=== PATIENT | male | born 1955 | race Caucasian/White ===

== ENCOUNTER 2022-12-27 13:37 | Inpatient (IN) ==
[2022-12-27] MEDS ORDERED: SODIUM CHLORIDE 0.9% 500 ML IV ONE (14:30)
[2022-12-27] MEDS ORDERED: MoRPHine SULFATE 2 MG/ML CARP IV STA (14:30)
--- NOTE | 2022-12-27 14:38 | Emergency Department Note ---
History of Present Illness General Chief complaint: Foot Injury/Pain Stated complaint: INFECTION IN FOOT Time Seen by Provider: 12/27/22 14:09 History of Present Illness Maximum Pain Intensity: 7 67-year-old male with past medical history significant for diabetes, PAD, chronic tobacco user who presents to the emergency department for evaluation of right foot wound. Patient states he developed a wound to the right lateral foot approximately 2 weeks ago from his shoes rubbing. He was admitted to [facility] on 2 separate occasions (12/09-12/13 and 12/21-12/25) for cellulitis and t reated with IV antibiotics. He developed 2 new wounds to the top and medial aspect of the right foot with some drainage today. 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 Dwyer, this morning and had cultures taken. He was then referred to the emergency department for likely surgical debridement of his wounds. Patient is currently taking clindamycin for step-down therapy for cellulitis. He denies fever/chills, nausea/vomiting. He has pain at the wound sites. Denies numbness/tingling, coolness of extremity. Reports a history of right lower extremity bypass as well as status post transmetatarsal amputation on the right foot. He has taken tramadol and Tylenol prior to arrival for pain without much relief. Home Medications Medication Instructions Recorded Confirmed Type acetaminophen 500 mg tablet 500 mg PO DAILY PRN Pain 12/27/22 12/27/22 History ascorbic acid (vitamin C) 500 mg 500 mg PO DAILY 12/27/22 12/27/22 History tablet atorvastatin 20 mg tablet 20 mg PO DAILY 12/27/22 12/27/22 History cholecalciferol (vitamin D3) 50 50 mcg PO DAILY 12/27/22 12/27/22 History mcg (2,000 unit) capsule (Vitamin D3) cilostazol 100 mg tablet 100 mg PO BID 12/27/22 12/27/22 History clindamycin HCl 300 mg capsule 300 mg PO Q6H 12/27/22 12/27/22 History clopidogrel 75 mg tablet 75 mg PO DAILY 12/27/22 12/27/22 History epinephrine 0.3 mg/0.3 mL 0.3 mg IM DIRECTED 12/27/22 12/27/22 History injection, auto-injector finerenone 10 mg tablet (Kerendia) 10 mg PO DAILY 12/27/22 12/27/22 History gabapentin 300 mg capsule 600 mg PO QID 12/27/22 12/27/22 History insulin aspart U-100 100 unit/mL 0 unit subcut DIRECTED 12/27/22 12/27/22 History (3 mL) subcutaneous pen (Novolog FlexPen U-100 Insulin aspart) insulin glargine 100 unit/mL (3 0 unit subcut QPM 12/27/22 12/27/22 History mL) subcutaneous pen (Lantus Solostar U-100 Insulin) lisinopril 40 mg tablet 40 mg PO HS 12/27/22 12/27/22 History multivitamin 1 tab PO DAILY 12/27/22 12/27/22 History pioglitazone 45 mg tablet 45 mg PO DAILY 12/27/22 12/27/22 History tramadol 50 mg tablet 50 mg PO BID PRN Pain 12/27/22 12/27/22 History vit C 250 mg-vit E 90 mg-zinc 40 1 cap PO DAILY 12/27/22 12/27/22 History mg-copper 1 th-[id number] capsule (PreserVision AREDS-2) Allergies Allergy/AdvReac Type Severity Reaction Status Date / Time bee venom protein (honey bee) Allergy Severe Anaphylaxis Unverified 12/27/22 16 :09 Past Med/Surg History Medical History (Updated 12/27/22 @ 21:48 by Gaston Novak DPM, MS) PVD (peripheral vascular disease) T2DM (type 2 diabetes mellitus) TIA (transient ischemic attack) Social History Smoking Status: Current every day smoker Tobacco Type: Cigarettes Second Hand Exposure: Yes; Do You Dip or Chew Tobacco: No; Tobacco Cessation Education Requested by Patient: No Hx Substance Use: No Preferred Language: Monegasque Communication Ability: Effective Manufacturing Supervisor Required: No Beliefs That Will Affect Care: None Current Living Situation: Alone Other Information That Helps Us Care for You: No Feels Safe at Home: Yes Safety Concerns: Feels Safe At This Time Assistive Devices: Cane, Scooter/Electric Scooter and Walker Physical Exam Vital Signs Vital Signs - 24 hr 12/27/22 13:41 12/27/22 15:02 12/27/22 15:00 Temperature 36.8 C Temperature Source Temporal Artery Scan Pulse Rate 84 75 Pulse Rate from SpO2 Sensor Respiratory Rate 20 Respiratory Effort / Characteristics Non-Labored Respiratory Depth Normal Blood Pressure 156/70 H 146/70 H Blood Pressure Mean 98 97 Pulse Oximetry 98 Oxygen Delivery Method Room Air Sepsis Recent Fever Within 48 Hours No Sepsis New/Unexplained Change in Mental Status N/A Sepsis Action Taken by Nursing No Action Required 12/27/22 15:00 12/27/22 15:05 12/27/22 15:05 Temperature Temperature Source Pulse Rate 73 72 Pulse Rate from SpO2 Sensor 75 72 Respiratory Rate 14 18 Respiratory Effort / Characteristics Respiratory Depth Blood Pressure 154/73 H Blood Pressure Mean 104 Pulse Oximetry 97 94 Oxygen Delivery Method Sepsis Recent Fever Within 48 Hours Sepsis New/Unexplained Change in Mental Status Sepsis Action Taken by Nursing 12/27/22 15:10 12/27/22 15:10 12/27/22 15:15 Temperature Temperature Source Pulse Rate 73 74 Pulse Rate from SpO2 Sensor 75 73 Respiratory Rate 22 17 Respiratory Effort / Characteristics Respiratory Depth Blood Pressure 159/75 H Blood Pressure Mean 118 Pulse Oximetry 96 98 Oxygen Delivery Method Sepsis Recent Fever Within 48 Hours Sepsis New/Unexplained Change in Mental Status Sepsis Action Taken by Nursing 12/27/22 15:15 12/27/22 15:20 12/27/22 15:20 Temperature Temperature Source Pulse Rate 69 Pulse Rate from SpO2 Sensor 72 Respiratory Rate 17 Respiratory Effort / Characteristics Respiratory Depth Blood Pressure 169/80 H 164/76 H Blood Pressure Mean 124 108 Pulse Oximetry 97 Oxygen Delivery Method Sepsis Recent Fever Within 48 Hours Sepsis New/Unexplained Change in Mental Status Sepsis Action Taken by Nursing 12/27/22 15:25 12/27/22 15:25 12/27/22 15:30 Temperature Temperature Source Pulse Rate 77 Pulse Rate from SpO2 Sensor 77 Respiratory Rate 14 Respiratory Effort / Characteristics Respiratory Depth Blood Pressure 146/78 H 158/72 H Blood Pressure Mean 101 107 Pulse Oximetry 98 Oxygen Delivery Method Sepsis Recent Fever Within 48 Hours Sepsis New/Unexplained Change in Mental Status Sepsis Action Taken by Nursing 12/27/22 15:30 12/27/22 15:36 12/27/22 15:36 Temperature Temperature Source Pulse Rate 72 78 Pulse Rate from SpO2 Sensor 75 76 Respiratory Rate 19 21 Respiratory Effort / Characteristics Respiratory Depth Blood Pressure 158/64 H Blood Pressure Mean 104 Pulse Oximetry 98 94 Oxygen Delivery Method Sepsis Recent Fever Within 48 Hours Sepsis New/Unexplained Change in Mental Status Sepsis Action Taken by Nursing 12/27/22 15:40 12/27/22 15:40 12/27/22 15:45 Temperature Temperature Source Pulse Rate 73 72 Pulse Rate from SpO2 Sensor 73 69 Respiratory Rate 14 24 Respiratory Effort / Characteristics Respiratory Depth Blood Pressure 161/80 H Blood Pressure Mean 108 Pulse Oximetry 97 98 Oxygen Delivery Method Sepsis Recent Fever Within 48 Hours Sepsis New/Unexplained Change in Mental Status Sepsis Action Taken by Nursing 12/27/22 15:45 12/27/22 15:50 12/27/22 15:50 Temperature Temperature Source Pulse Rate 73 Pulse Rate from SpO2 Sensor 77 Respiratory Rate 20 Respiratory Effort / Characteristics Respiratory Depth Blood Pressure 152/95 H 171/84 H Blood Pressure Mean 120 113 Pulse Oximetry 93 Oxygen Delivery Method Sepsis Recent Fever Within 48 Hours Sepsis New/Unexplained Change in Mental Status Sepsis Action Taken by Nursing 12/27/22 15:55 12/27/22 15:55 12/27/22 16:00 Temperature Temperature Source Pulse Rate 74 Pulse Rate from SpO2 Sensor 77 Respiratory Rate 17 Respiratory Effort / Characteristics Respiratory Depth Blood Pressure 161/78 H 168/97 H Blood Pressure Mean 128 136 Pulse Oximetry 95 Oxygen Delivery Method Sepsis Recent Fever Within 48 Hours Sepsis New/Unexplained Change in Mental Status Sepsis Action Taken by Nursing 12/27/22 16:00 12/27/22 16:05 12/27/22 16:05 Temperature Temperature Source Pulse Rate 72 91 H Pulse Rate from SpO2 Sensor 74 97 H Respiratory Rate 25 H 23 Respiratory Effort / Characteristics Respiratory Depth Blood Pressure 203/92 H Blood Pressure Mean 138 Pulse Oximetry 95 95 Oxygen Delivery Method Sepsis Recent Fever Within 48 Hours Sepsis New/Unexplained Change in Mental Status Sepsis Action Taken by Nursing 12/27/22 16:10 12/27/22 16:11 12/27/22 16:11 Temperature Temperature Source Pulse Rate 74 75 Pulse Rate from SpO2 Sensor 68 77 Respiratory Rate 26 H 21 Respiratory Effort / Characteristics Respiratory Depth Blood Pressure 157/57 H Blood Pressure Mean 96 Pulse Oximetry 94 95 Oxygen Delivery Method Sepsis Recent Fever Within 48 Hours Sepsis New/Unexplained Change in Mental Status Sepsis Action Taken by Nursing Constitutional: alert and oriented x3. no acute distress. nontoxic HEENT: normocephalic, atraumatic. normal conjunctiva.PERRLA. EOM's grossly intact. Neck: neck is supple, nontender. Respiratory: lungs are clear to auscultation without wheezes, rhonchi, or rales bilaterally. equal chest rise. normal respiratory effort, no accessory muscle use. Cardiovascular: normal heart sounds without murmur. regular rate and rhythm. GI: abdomen is soft, nontender. No palpable masses. No rebound tenderness or guarding. No CVA tenderness MSK: right lateral foot wound without erythema, edema, warmth or drainage, appears to be healing well. Right dorsal and medial foot with quarter size ulcers with surrounding erythema, swelling and warmth. Some fluctuance. No obvious abscess. No crepitus. Peripheral vascular: extremities warm and well perfused with palpable pulses. Psych:appropriate mood and affect. Course Administered Medications Cilostazol (Cilostazol 100 Mg Tab) 100 mg PO BID ZINA Stop: 01/26/23 20:59 Last Admin: 12/27/22 21:04 Dose: 100 mg Documented By: ELMIRA Gabapentin (Gabapentin 600 Mg Tab) 600 mg PO QID ZINA Stop: 01/26/23 20:59 Last Admin: 12/27/22 21:04 Dose: 600 mg Documented By: ELMIRA Heparin Sodium (Porcine) (Heparin Sod 5,000 Unit/0.5 Ml Vial) 5,000 units SQ Q8 ZINA Stop: 01/26/23 21:59 Last Admin: 12/27/22 21:02 Dose: 5,000 units Documented By: ELMIRA Lactated Ringer's (Lr) 1,000 mls @ 100 mls/hr IV .Q10H ZINA Stop: 01/26/23 17:44 Last Admin: 12/27/22 18:40 Dose: 100 mls/hr Documented By: VANITA Insulin Aspart (Insulin Aspart Per Unit Charge) 0 units SC ACHS ZINA Stop: 01/26/23 20:59 Last Admin: 12/27/22 20:50 Dose: 3 units Documented By: ELMIRA Co-signed By: DOMINICK Insulin Glargine (Lantus Per Unit Charge) 10 units SQ BID ZINA Stop: 01/26/23 20:59 Last Admin: 12/27/22 20:51 Dose: 10 units Documented By: ELMIRA Co-signed By: DOMINICK Tramadol HCl (Tramadol Hcl 50 Mg Tablet) 50 mg PO BID PRN PRN Reason: Pain Stop: 01/26/23 19:57 Last Admin: 12/27/22 21:03 Dose: 50 mg Documented By: ELMIRA Discontinued Medications Gadobutrol (Gadobutrol 65ml Vial) 9.5 ml IV ONCE ONE Stop: 12/27/22 18:10 Last Admin: 12/27/22 18:09 Dose: 9.5 ml Documented By: ANA(2) Sodium Chloride (Nss) 500 mls @ 999 mls/hr IV .Q31M ONE Stop: 12/27/22 15:00 Last Infusion: 12/27/22 15:55 Dose: 0 mls/hr Documented By: Admin: 12/27/22 14:51 Dose: 999 mls/hr Documented By: VANITA Piperacillin Sod/Tazobactam Sod (Zosyn) 4.5 gm in 120 mls @ 240 mls/hr IV NOW ONE Stop: 12/27/22 15:52 Last Infusion: 12/27/22 16:56 Dose: 0 mls/hr Documented By: Admin: 12/27/22 16:00 Dose: 240 mls/hr Documented By: AMY Daptomycin 350 mg/ Syringe 7 mls @ 3.5 mls/min IV NOW ONE; Protocol Stop: 12/27/22 19:46 Last Admin: 12/27/22 21:01 Dose: 3.5 mls/min Documented By: ELMIRA Insulin Human Regular (Novolin-R Insulin Per Unit Charge) 4 units IV NOW STA Stop: 12/27/22 17:35 Last Admin: 12/27/22 18:42 Dose: 4 units Documented By: VANITA Co-signed By: AMY Miscellaneous (Patient's Height &/Or Weight Needed) 1 each N/A Q2H ZINA Stop: 01/26/23 17:54 Last Admin: 12/27/22 18:43 Dose: 1 each Documented By: VANITA Morphine Sulfate (Morphine Sulfate 2 Mg/Ml Carp) 2 mg IV NOW STA Stop: 12/27/22 14:31 Last Admin: 12/27/22 14:50 Dose: 2 mg Documented By: VANITA Medical Decision Making Differential Diagnosis Diabetic wound, nonhealing wound, cellulitis, abscess, osteomyelitis, sepsis as well as other pathologies Laboratory Data Attestation: I reviewed the patient's lab results. 12/27/22 14:29 12/27/22 14:29 Lab Results 12/27/22 12/27/22 12/27/22 Range/Units 14:29 14:29 14:29 WBC 15.12 H (4.8-10.8) K/ul RBC 2.85 L (4.70-6.10) M/uL Hgb 9.6 L (14.0-18.0) g/dl Hct 28.2 L (42.0-52.0) % MCV 98.9 (80.0-100.0) fL MCH 33.7 (25.0-34.0) pg MCHC 34.0 (32.0-36.0) g/dL RDW Std Deviation 48.1 H (36.4-46.3) fL RDW Coeff of Calli 13.3 (11.5-14.5) % Plt Count 425 H (130-400) K/uL MPV 9.7 (9.4-12.4) fL Immature Gran % (Auto) 0.8 % Neut % (Auto) 81.2 % Lymph % (Auto) 7.9 % [place] % (Auto) 8.8 % Eos % (Auto) 0.7 % Baso % (Auto) 0.6 % Neut # (Auto) 12.28 H (1.40-6.50) K/uL Lymph # (Auto) 1.20 (1.2-3.4) K/uL [place] # (Auto) 1.33 H (0.11-0.59) K/uL Eos # (Auto) 0.10 (0-0.50) K/uL Baso # (Auto) 0.09 (0-0.2) K/uL Immature Gran # (Auto) 0.12 (0.01-0.20) K/uL Sodium 132 L (136-145) mmol/L Potassium 4.3 (3.5-5.1) mmol/L Chloride 105 (98-107) mmol/L Carbon Dioxide 18 L (21-32) mmol/L Anion Gap 9 (3-11) BUN 28 H (6-23) mg/dl Creatinine 1.67 H (0.6-1.4) mg/dl Est Cr Clr Drug Dosing Not Reportable Est GFR ( Amer) 49.0 ml/min Est GFR (Non-Af Amer) 42.3 ml/min BUN/Creatinine Ratio 16.8 (10-20) Glucose 317 H* (70-99(Fasting)) mg/dl Lactate 1.6 (0.4-2.0) mmol/L Calcium 9.1 (8.6-10.3) mg/dl Total Bilirubin 0.2 (0.2-1.0) mg/dl AST 40 H (13-39) U/L ALT 66 H (7-52) U/L Alkaline Phosphatase 102 (34-104) U/L C-Reactive Protein 21.79 H (0-0.5) mg/dl Total Protein 6.7 (6.0-8.3) gm/dl Albumin 3.2 L (3.4-5.0) gm/dl Globulin 3.5 (2.5-4.0) gm/dl Albumin/Globulin Ratio 0.9 (0.9-2) Procalcitonin (0-0.5) ng/ml Urine Color Urine Appearance (Clear) Urine pH (4.5-7.5) Ur Specific [place] (1.000-1.030) Urine Protein (Negative) Urine Glucose (UA) (Negative) Urine Ketones (Negative) Urine Blood (Negative) Urine Nitrite (Negative) Urine Bilirubin (Negative) Urine Urobilinogen (Negative) Ur Leukocyte Esterase (Negative) Urine WBC (Auto) (0-5) /hpf Urine RBC (Auto) (0-4) /hpf U Hyaline Cast (Auto) (0-5) /lpf U Epithel Cells (Auto) (0-5) /lpf Urine Bacteria (Auto) (Negative) SARS-CoV-2, RNA, NAAT (NEGATIVE) 12/27/22 12/27/22 12/27/22 Range/Units 14:30 15:05 16:10 WBC (4.8-10.8) K/ul RBC (4.70-6.10) M/uL Hgb (14.0-18.0) g/dl Hct (42.0-52.0) % MCV (80.0-100.0) fL MCH (25.0-34.0) pg MCHC (32.0-36.0) g/dL RDW Std Deviation (36.4-46.3) fL RDW Coeff of Calli (11.5-14.5) % Plt Count (130-400) K/uL MPV (9.4-12.4) fL Immature Gran % (Auto) % Neut % (Auto) % Lymph % (Auto) % [place] % (Auto) % Eos % (Auto) % Baso % (Auto) % Neut # (Auto) (1.40-6.50) K/uL Lymph # (Auto) (1.2-3.4) K/uL [place] # (Auto) (0.11-0.59) K/uL Eos # (Auto) (0-0.50) K/uL Baso # (Auto) (0-0.2) K/uL Immature Gran # (Auto) (0.01-0.20) K/uL Sodium (136-145) mmol/L Potassium (3.5-5.1) mmol/L Chloride (98-107) mmol/L Carbon Dioxide (21-32) mmol/L Anion Gap (3-11) BUN (6-23) mg/dl Creatinine (0.6-1.4) mg/dl Est Cr Clr Drug Dosing Est GFR ( Amer) ml/min Est GFR (Non-Af Amer) ml/min BUN/Creatinine Ratio (10-20) Glucose (70-99(Fasting)) mg/dl Lactate (0.4-2.0) mmol/L Calcium (8.6-10.3) mg/dl Total Bilirubin (0.2-1.0) mg/dl AST (13-39) U/L ALT (7-52) U/L Alkaline Phosphatase (34-104) U/L C-Reactive Protein (0-0.5) mg/dl Total Protein (6.0-8.3) gm/dl Albumin (3.4-5.0) gm/dl Globulin (2.5-4.0) gm/dl Albumin/Globulin Ratio (0.9-2) Procalcitonin 0.31 (0-0.5) ng/ml Urine Color Yellow Urine Appearance Clear (Clear) Urine pH 5.5 (4.5-7.5) Ur Specific [place] 1.019 (1.000-1.030) Urine Protein 1+ H (Negative) Urine Glucose (UA) Negative (Negative) Urine Ketones Negative (Negative) Urine Blood Negative (Negative) Urine Nitrite Negative (Negative) Urine Bilirubin Negative (Negative) Urine Urobilinogen Negative (Negative) Ur Leukocyte Esterase Negative (Negative) Urine WBC (Auto) 1-5 (0-5) /hpf Urine RBC (Auto) 0-4 (0-4) /hpf U Hyaline Cast (Auto) 1-5 (0-5) /lpf U Epithel Cells (Auto) 10-20 H (0-5) /lpf Urine Bacteria (Auto) Negative (Negative) SARS-CoV-2, RNA, NAAT NEGATIVE (NEGATIVE) Imaging Data My Impression: Right foot x-ray per my interpretation without acute fracture or dislocation. No evidence of osteomyelitis Radiologist's Impression: Foot X-Ray 12/27/22 14:29 XR foot RT min 3V routine CLINICAL HISTORY: chronic wound TECHNIQUE: 3 views of the right foot were obtained. Comparison: None available at the time of this dictation. FINDINGS: Patient is status post amputation at the level of the mid foot. No focal erosion is seen. The joint spaces are well preserved. There is irregularity in the soft tissues site of resection. IMPRESSION: No focal erosion is seen to suggest osteomyelitis. Patient is status post midfoot amputation. Soft tissues appear heterogeneous and edema/emphysema cannot be entirely excluded. If there is continued clinical concern, MRI is a more sensitive modality for osteoarthritis. ACT 112: Negative or not required by law. Electronically signed by: Pan Tracy M.D. 12/27/2022 3:55 PM Ankle MRI 12/27/22 16:11 MR ankle RT wo/w con CLINICAL HISTORY: eval osteo right foot wound TECHNIQUE: Multisequence, multiplanar MR images of the right ankle were obtained without contrast.. COMPARISON: Comparison is made to foot radiographs of 1123 FINDINGS: There is bony edema in the cuneiforms and first through third metatarsals. Soft tissue swelling is seen with a focal heterogeneous fluid collection in the dorsal soft tissues. IMPRESSION: Findings are compatible with osteomyelitis of the cuneiforms and first through third metatarsals with associated cellulitis. A heterogeneous developing abscess in the dorsal foot cannot be excluded. ACT 112: Negative or not required by law. Electronically signed by: Pan Tracy M.D. 12/27/2022 6:43 PM MDM Narrative 67-year-old male who presents to the emergency department for evaluation of nonhealing right foot wounds x 2 weeks. Review of pertinent visits and past medical history performed. Vital signs in ED demonstrate hypertensive otherwise within normal limits, afebrile. IV access was established and labs are obtained. CBC demonstrates leukocytosis of 15 with left shift. Hemoglobin 9.6. Patient reports a history of anemia and takes iron. CMP demonstrates mild hyponatremia 132. Creatinine 1.67 consistent with CKD. Glucose elevated at 317. Transaminitis with AST 40 and ALT 66. Lactate 1.6. Procalcitonin unremarkable. Blood cultures were sent. Urinalysis negative for infection and blood. X-ray of the right foot was performed and did not demonstrate focal erosion consistent with osteomyelitis. No fracture or dislocation. On exam, patient is nontoxic-appearing in no acute distress. He is neurologically intact without focal deficits. There are right foot wounds in various stages described as above with evidence of surrounding cellulitis. Right lower extremity is neurovascularly intact. He was treated with IV morphine for pain and hydrated with 500 mL IV fluids. Upon reevaluation, patient remained stable with no new concerns. He was updated on all exam findings and test results. Given leukocytosis and evidence of cellulitis with nonhealing wound, I do feel admission to the hospital for IV antibiotics and further work-up is warranted at this time. Patient is agreeable with this plan. Case was discussed with the hospitalist, Dr. Boyer, who recommended MRI of the foot/ankle to further evaluate for osteomyelitis. This was ordered and pending. He will admit patient to their service for further management and podiatry evaluation. Patient was given a dose of IV Zosyn here in the ED. He was admitted in stable condition. Case was discussed with ED attending Dr. Chan who agrees with work-up and treatment plan Impression & Plan Diabetic foot infection, T2DM (type 2 diabetes mellitus), PVD (peripheral vascular disease), Acute hyperglycemia Discharge Plan Visit Data Chief Complaint: Foot Injury/Pain Stated Complaint: INFECTION IN FOOT ED Provider: Martin Chan ED Midlevel Provider: Jennifer Rodrigez Discharge Problem: Diabetic foot infection, T2DM (type 2 diabetes mellitus), PVD (peripheral vascular disease), Acute hyperglycemia Patient Disposition: Admitted As Inpatient Discharge Instructions Interventions: ED Discharge Assessment Last Done: 12/27/22 19:44
[2022-12-27] MEDS ORDERED: PIPERACILLIN/TAZOBACTAM 4.5 GM/120 ML BAG IV ONE (15:23)
[2022-12-27 15:30] LABS: Basophils # (auto) 0.09 K/uL (0-0.2); Basophils % (auto) 0.6 %; Eosinophils % (auto) 0.7 %; Hematocrit (blood only) 28.2 % (42.0-52.0); Hemoglobin 9.6 g/dl (14.0-18.0); Immature Granulocytes # (auto) 0.12 K/uL (0.01-0.20); Immature Granulocytes % (auto) 0.8 %; Lymphocytes % (auto) 7.9 %; Mean Corpuscular Hemoglobin 33.7 pg (25.0-34.0); Mean Corpuscular Volume 98.9 fL (80.0-100.0); Mean Platelet Volume 9.7 fL (9.4-12.4); Monocytes # (auto) 1.33 K/uL (0.11-0.59); Monocytes % (auto) 8.8 %; Neutrophils # (auto) 12.28 K/uL (1.40-6.50); Neutrophils % (auto) 81.2 %; Platelet Count 425 K/uL (130-400); RDW Coefficient of Variation 13.3 % (11.5-14.5); RDW Standard Deviation 48.1 fL (36.4-46.3); Red Blood Count 2.85 M/uL (4.70-6.10); White Blood Count 15.12 K/ul (4.8-10.8)
[2022-12-27 15:38] LABS: Alanine Aminotransferase 66 U/L (7-52); Albumin Globulin Ratio 0.9 (0.9-2); Albumin Level 3.2 gm/dl (3.4-5.0); Alkaline Phosphatase 102 U/L (34-104); Anion Gap 9 (3-11); Aspartate Aminotransferase 40 U/L (13-39); BUN Creatinine Ratio 16.8 (10-20); Bilirubin,Total 0.2 mg/dl (0.2-1.0); Blood Urea Nitrogen 28 mg/dl (6-23); Calcium 9.1 mg/dl (8.6-10.3); Carbon Dioxide 18 mmol/L (21-32); Chloride 105 mmol/L (98-107); Est GFR (Non-African American) 42.3 ml/min; Globulin 3.5 gm/dl (2.5-4.0); Glucose 317 mg/dl (70-99(Fasting)); Potassium 4.3 mmol/L (3.5-5.1); Sodium 132 mmol/L (136-145); Total Protein 6.7 gm/dl (6.0-8.3)
--- NOTE | 2022-12-27 15:56 | XRay Report ---
XR foot RT min 3V routine CLINICAL HISTORY: chronic wound TECHNIQUE: 3 views of the right foot were obtained. Comparison: None available at the time of this dictation. FINDINGS: Patient is status post amputation at the level of the mid foot. No focal erosion is seen. The joint s paces are well preserved. There is irregularity in the soft tissues site of resection. IMPRESSION: No focal erosion is seen to suggest osteomyelitis. Patient is status post midfoot amputation. Soft ti ssues appear heterogeneous and edema/emphysema cannot be entirely excluded. If there is continued cli nical concern, MRI is a more sensitive modality for osteoarthritis. ACT 112: Negative or not required by law. Electronically signed by: Pan Tracy M.D. 12/27/2022 3:55 PM
--- NOTE | 2022-12-27 16:13 | History & Physical Report ---
Date of Service December 27, 2022 Assessment & Plan (1) Diabetic foot infection: Plan: Diabetic foot infection With concurrent vascular disease, patient reports history of right lower extremity vascular bypass (? fempop, pending records from [facility]) With poorly controlled DM Admitted to [facility] and discharged x2, most recently on doxycycline for MRSA with adjunct clindamycin added 12/26 by philatelic consultant on follow-up and recommended for ER evaluation Patient expresses frustration with [facility] and [facility], prefers to be managed at this institution and would like to establish with vascular at [facility] if possible. Given DFI with history of MRSA will admit on Dapto/Zosyn - Prior Vascular Surgeon- [facility] Tasia Ho [facility]. 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 Farzana Watt [place] Continue broad coverage for DFI with worsening infection, broad coverage with Zosyn/Dapto at this time. At time of admission patient does not have a weight, and is in MRI. Daptomycin to be ordered once patient returned and weight obtain Cultures were taken at [facility] 12/26. Office is not open at time of admission, will attempt to obtain culture update 7/ Peripheral vascular disease With history of arterial bypass, records pending Patient does have intact PT pulse, and this was also noted on Doppler morning of admission Leukocytosis of 15.12, neutrophilic predominance without left shift Hemoglobin 9.6, normocytic Platelet count 425 likely reactive - XR: No focal erosion is seen to suggest osteomyelitis. Patient is status post midfoot amputation. Soft tissues appear heterogeneous and edema/emphysema cannot be entirely excluded. If there is continued clinical concern, MRI is a more sensitive modality for osteoarthritis. - MRI pending given worsening, recurrence and? Rest Plavix, cilostazol - Atorvastatin continued Patient has intact PT pulse on exam and intact cap refill. Will complete work- up above, antibiotics, and podiatry eval. We will also attempt to obtain prior vascular studies from [facility], and then discussed with vascular 12/28 daytime CKD 3 Admitting creatinine 1.67, patient reports history of CKD 3 Unknown creatinine baseline, records pending Trend BMP daily, will avoid contrast were able at this Transaminitis Mild, with history of hyperlipidemia. Patient denies history of liver disease Baseline levels and outside reconciliation pending. If new, will obtain liver ultrasound. Steasosis? Type II DM, acute hyperglycemia Admitting BSG 317. Hold home pioglitazone Lactate normal HCT/ALT elevated at 40/66 -Time of BSG elevated in the setting of infection Admitted on basal bolus based on TDD with pharmacy glycemic consult - CF 25/Ratio 9 Basal 15 BID (dose reduce to 10u BID while NPO) History of TIA No residual deficits Continued on Plavix 75 mg daily, patient also takes this due to his peripheral vascular disease DVT prophylaxis: SCDs, heparin subcu Diet: N.p.o. pending surgical evaluation, advance to DM 2 if surgery is not anticipated or postoperative Disposition: Medical/surgical CODE STATUS: Full (2) T2DM (type 2 diabetes mellitus): (3) TIA (transient ischemic attack): (4) PVD (peripheral vascular disease): History of Present Illness Primary Care Provider: Michel Warren DO Antony is a 67-year-old male with past medical history of type II DM, PAD, tobacco use who presented with right lateral foot wound with 2 admissions 12/09 - 12/13, 12/21 - 12/25 for cellulitis requiring IV antibiotics. Patient has had 2 additional wounds develop on the dorsal medial foot with drainage; was recommended by outpatient podiatry to go to the ER for debridement and IV antibiotics. Patient has been on clindamycin as an outpatient. "Amilcar" and his Vicky are seen at bedside Discharged from [facility] [place] on Monday. [facility] told them nothing more that they could do, recommended following up with a vascular surgeon. - Dr. Ho [facility] --> Vascular Surgery [facility]. 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 Farzana Dwyer - Do not like their current vascular surgeon. Would like to establish here if able - History of RIGHT LEG vascular bipass in September 2019. They are not sure what type of bipass just that it was in the groin, 1 of which failed. At [place] and had a revision with a distal stent bu tlost his hallux. 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 Was in hospital at [facility] for that, which healed OK and discharged on doxy. - Dorsimedial ulcer and draining came up last Monday. Dr. Dwyer perofrmed ultrasound as outpatient --> No fluid --> Had reddish and purulent fluid drained by Dr. Dwyer this morning from both MEDIAL ANKLE and DORSAL foot and was recommended to come into ER for debridement. They came here rather than [facility] - Last doppler was in the hospital earlier in the month, intake but poor flow. Was to followup with Dr. Ho as outpatient on 01/10, did not have inpatient assessment. Per pt and Vicky "we werent going to wait until the .' - +History of MRSA, pt denies history of Pseudomonas infection - +Fevers, chills, sweats first day his foot blistered on Monday (3 days ago). No fevers/chills last 2 days. Has been taking doxycycline (started 12/25) & cli ndamycin (sinec 12/26) by podiatry. - No chest pressure or chest pain - No heart problems No lung problems Stage 3 CKD. Pt does not know his baseline Cr. - T2DM: glargine HS 24, aspart 14u with meals TID , pioglitizone, gabapentin 600mg QID - Kerendia for renal disease. Follows with Mack[facility]. 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 No residual deficits. - No blood thinners like eliquis or warfarin Medical History: Reviewed Medications: Reviewed Surgical History: Reviewed Family history: Reviewed Allergies: Reviewed Social History: Current smoker, 1ppd x25 years. No Etoh use. No MM use. Code Status: Full Code Allergies Allergy/AdvReac Type Severity Reaction Status Date / Time bee venom protein (honey bee) Allergy Severe Anaphylaxis Unverified 12/27/22 16:09 Home Medications Medication Instructions Recorded Confirmed Type acetaminophen 500 mg tablet 500 mg PO DAILY PRN Pain 12/27/22 12/27/22 History ascorbic acid (vitamin C) 500 mg 500 mg PO DAILY 12/27/22 12/27/22 History tablet atorvastatin 20 mg tablet 20 mg PO DAILY 12/27/22 12/27/22 History cholecalciferol (vitamin D3) 50 50 mcg PO DAILY 12/27/22 12/27/22 History mcg (2,000 unit) capsule (Vitamin D3) cilostazol 100 mg tablet 100 mg PO BID 12/27/22 12/27/22 History clindamycin HCl 300 mg capsule 300 mg PO Q6H 12/27/22 12/27/22 History clopidogrel 75 mg tablet 75 mg PO DAILY 12/27/22 12/27/22 History epinephrine 0.3 mg/0.3 mL 0.3 mg IM DIRECTED 12/27/22 12/27/22 History injection, auto-injector finerenone 10 mg tablet (Kerendia) 10 mg PO DAILY 12/27/22 12/27/22 History gabapentin 300 mg capsule 600 mg PO QID 12/27/22 12/27/22 History insulin aspart U-100 100 unit/mL 0 unit subcut DIRECTED 12/27/22 12/27/22 History (3 mL) subcutaneous pen (Novolog FlexPen U-100 Insulin aspart) insulin glargine 100 unit/mL (3 0 unit subcut QPM 12/27/22 12/27/22 History mL) subcutaneous pen (Lantus Solostar U-100 Insulin) lisinopril 40 mg tablet 40 mg PO HS 12/27/22 12/27/22 History multivitamin 1 tab PO DAILY 12/27/22 12/27/22 History pioglitazone 45 mg tablet 45 mg PO DAILY 12/27/22 12/27/22 History tramadol 50 mg tablet 50 mg PO BID PRN Pain 12/27/22 12/27/22 History vit C 250 mg-vit E 90 mg-zinc 40 1 cap PO DAILY 12/27/22 12/27/22 History mg-copper 1 [id number] capsule (PreserVision AREDS-2) Past Med/Surg History Medical History (Updated 12/27/22 @ 16:53 by Loco Boyer MD) PVD (peripheral vascular disease) T2DM (type 2 diabetes mellitus) TIA (transient ischemic attack) Social History Smoking Status: Current every day smoker Tobacco Type: Cigarettes Preferred Language: Mosotho Feels Safe at Home: Yes Review of Systems Review of Systems: All systems reviewed & are unremarkable except as noted in HPI & below Physical Exam Physical Exam: General: A&Ox3. NAD. Cooperative. HEENT: Atraumatic, normocephalic. Vision/hearing grossly intact Pulm: CTAB A&P. -wheezes, -rales, -rhonchi. Symmetrical chest rise. No increased work of breathing. No respiratory distress. Cardiac: RRR, -mrg. Radial pulses intact and symmetrical. Abdominal: Nontender, nondistended, soft. BS present. Extremities: Right lower extremity with proximal thigh and proximal posterior right lower extremity incisions from prior vascular surgery, well-healed. Right PT pulse is intact to both palpation and Doppler. Healing, nonerythematous, nontender right plantar lateral ulcer is present. In addition to this to fluctuant, tender, warm, erythematous ulcerations at the medial ankle with eschar and lateral aspect of the dorsal foot are present, see photo below. Results & Data Results & Data Vital Signs (Past 12 Hours) Vital Signs Temp Pulse Resp BP Pulse Ox O2 Del Method 12/27/22 16:11 157/57 H 12/27/22 16:11 75 21 95 12/27/22 16:10 74 26 H 94 12/27/22 16:05 91 H 23 95 12/27/22 16:05 203/92 H 12/27/22 16:00 72 25 H 95 12/27/22 16:00 168/97 H 12/27/22 15:55 74 17 95 12/27/22 15:55 161/78 H 12/27/22 15:50 73 20 93 12/27/22 15:50 171/84 H 12/27/22 15:45 152/95 H 12/27/22 15:45 72 24 98 12/27/22 15:40 73 14 97 12/27/22 15:40 161/80 H 12/27/22 15:36 78 21 94 12/27/22 15:36 158/64 H 12/27/22 15:30 72 19 98 12/27/22 15:30 158/72 H 12/27/22 15:25 146/78 H 12/27/22 15:25 77 14 98 12/27/22 15:20 69 17 97 12/27/22 15:20 164/76 H 12/27/22 15:15 169/80 H 12/27/22 15:15 74 17 98 12/27/22 15:10 73 22 96 12/27/22 15:10 159/75 H 12/27/22 15:05 154/73 H 12/27/22 15:05 72 18 94 12/27/22 15:00 73 14 97 12/27/22 15:00 146/70 H 12/27/22 15:02 75 12/27/22 13:41 36.8 C 84 20 156/70 H 98 Room Air PG Care Time/CCT Total # of Minutes Spent Total Time Spent with Patient: Total time spent is greater than 50% in coordination of care (as documented) at patient's floor/unit and/or counseling patient: Coding Level of Care Code 75612 INT INP/OBS CARE 3/75MIN Diagnoses Diabetic foot infection E11.628; L08.9 T2DM (type 2 diabetes mellitus) E11.9 TIA (transient ischemic attack) G45.9 PVD (peripheral vascular disease) I73.9
[2022-12-27 16:51] LABS: Appearance Urine Clear (Clear); Bacteria Urine Automated Negative (Negative); Bilirubin Urine Negative (Negative); Blood Urine Negative (Negative); Color Urine Yellow; Glucose Urine UA Negative (Negative); Ketones Urine Negative (Negative); Leukocyte Esterase Urine Negative (Negative); Nitrite Urine Negative (Negative); Protein Urine 1+ (Negative); RBC Urine Automated 0-4 /hpf (0-4); Specific Gravity Urine 1.019 (1.000-1.030); Urobilinogen Urine Negative (Negative); pH Urine 5.5 (4.5-7.5)
--- NOTE | 2022-12-27 17:32 | Emergency Department Note ---
ED Visit Note I was consulted by the Advanced Practice Provider. I saw the patient personally and performed a substantive portion of the visit. This includes aspects of the HPI, MDM, diagnostic interpretations, and disposition/plan. Patient does have an infected foot. The patient is diabetic. His white count is elevated. Hospitalization is indicated. .
[2022-12-27] MEDS ORDERED: GLUCOSE 10 TAB/TUBE PO PRN (17:34)
[2022-12-27] MEDS ORDERED: GLUCOSE 40% GEL 15 GM TUBE PO PRN (17:34)
[2022-12-27] MEDS ORDERED: CARBOHYDRATES FOR HYPOGLYCEMIA PO PRN (17:34)
[2022-12-27] MEDS ORDERED: NovoLIN-R INSULIN PER UNIT CHARGE IV STA (17:34)
[2022-12-27] MEDS ORDERED: DEXTROSE 50% 50 ML SYRINGE IV PRN (17:34)
[2022-12-27] MEDS ORDERED: GLUCAGON FOR INJ 1 MG VIAL SQ PRN (17:34)
[2022-12-27] MEDS ORDERED: GADOBUTROL 65ML VIAL IV ONE (18:09)
[2022-12-27] MEDS: LACTATED RINGER'S 1,000 ML IV SCH (18:40)
[2022-12-27] MEDS: Patient's HEIGHT &/or WEIGHT Needed SCH (18:43)
--- NOTE | 2022-12-27 18:45 | Magnetic Resonance Report ---
MR ankle RT wo/w con CLINICAL HISTORY: eval osteo right foot wound TECHNIQUE: Multisequence, multiplanar MR images of the right ankle were obtained without contrast.. COMPARISON: Comparison is made to foot radiographs of 1122 FINDINGS: There is bony edema in the cuneiforms and first through third metatarsals. Soft tissue swelling is se en with a focal heterogeneous fluid collection in the dorsal soft tissues. IMPRESSION: Findings are compatible with osteomyelitis of the cuneiforms and first through third metatarsals with associated cellulitis. A heterogeneous developing abscess in the dorsal foot cannot be excluded. ACT 112: Negative or not required by law. Electronically signed by: Pan Tracy M.D. 12/27/2022 6:43 PM
[2022-12-27 19:40] LABS: C Reactive Protein 21.79 mg/dl (0-0.5)
[2022-12-27] MEDS ORDERED: DAPTOmycin 350 MG in SYRINGE 0 ML IV ONE (19:45)
[2022-12-27] MEDS ORDERED: POLYETHYLENE (MIRALAX) 17 GM PACK PO PRN (19:58)
[2022-12-27] MEDS: LANTUS PER UNIT CHARGE SQ SCH (20:51)
[2022-12-27] MEDS ORDERED: INSULIN ASPART PER UNIT CHARGE SC SCH (21:00)
[2022-12-27] MEDS: HEPARIN SOD 5,000 UNIT/0.5 ML VIAL SQ SCH (21:02)
[2022-12-27] MEDS: traMADol HCL 50 MG TABLET PO PRN (21:03)
[2022-12-27] MEDS: GABAPENTIN 600 MG TAB PO SCH (21:04)
[2022-12-27] MEDS: cilostazoL 100 MG TAB PO SCH (21:04)
--- NOTE | 2022-12-27 21:50 | Orthopedic Consultation ---
Date of Consultation December 27, 2022 Assessment & Plan (1) Osteomyelitis of right foot: Patient seen, evaluated, adn treated. We did review concern over MRI resultts showing (+) OM to cuneiforms and metatarsals. Patient elects for resection of non viable bone and soft tissue with wash out scheduled for 4pm 12/28/22 Patient is at severe risk for loss of limb. This was reviewed. I reviewed procedure in detail as well as postoperative recovery. I discussed expectations and patient's current weightbearing status. All questions answered. All potential risks, benefits, complications, alternatives, rehab, potential for incomplete relief of symptoms, need for further surgery, DVT, PE, , persistent pain, swelling, scarring, weakness, neurovascular, wound complications and potential for amputations were discussed with patient. All questions were answered. Patient has decided to proceed with procedure as indicated. (2) Diabetic foot infection: (3) T2DM (type 2 diabetes mellitus): History of Present Illness Attending Physician: Loco Boyer MD History of Present Illness Patient is an uncontrolled type II diabetic, 67-year-old male seen for right diabetic foot ulcers with osteomyelitis. Patient has a past medical history of type II DM, PAD, tobacco use. Patient has had 2 recent prior admissions 12/09 - 12/13, 12/21 - 12/25 for right foot cellulitis requiring IV antibiotics. Patient has had 2 additional wounds develop on the dorsal medial foot with drainage; was recommended by outpatient podiatry to go to the ER for debridement and IV antibiotics. Patient has been on clindamycin as an outpatient. Allergies Allergy/AdvReac Type Severity Reaction Status Date / Time bee venom protein (honey bee) Allergy Severe Anaphylaxis Unverified 12/27/22 16:09 Home Medications Medication Instructions Recorded Confirmed Type acetaminophen 500 mg tablet 500 mg PO DAILY PRN Pain 12/27/22 12/27/22 History ascorbic acid (vitamin C) 500 mg 500 mg PO DAILY 12/27/22 12/27/22 History tablet atorvastatin 20 mg tablet 20 mg PO DAILY 12/27/22 12/27/22 History cholecalciferol (vitamin D3) 50 50 mcg PO DAILY 12/27/22 12/27/22 History mcg (2,000 unit) capsule (Vitamin D3) cilostazol 100 mg tablet 100 mg PO BID 12/27/22 12/27/22 History clindamycin HCl 300 mg capsule 300 mg PO Q6H 12/27/22 12/27/22 History clopidogrel 75 mg tablet 75 mg PO DAILY 12/27/22 12/27/22 History epinephrine 0.3 mg/0.3 mL 0.3 mg IM DIRECTED 12/27/22 12/27/22 History injection, auto-injector finerenone 10 mg tablet (Kerendia) 10 mg PO DAILY 12/27/22 12/27/22 History gabapentin 300 mg capsule 600 mg PO QID 12/27/22 12/27/22 History insulin aspart U-100 100 unit/mL 0 unit subcut DIRECTED 12/27/22 12/27/22 History (3 mL) subcutaneous pen (Novolog FlexPen U-100 Insulin aspart) insulin glargine 100 unit/mL (3 0 unit subcut QPM 12/27/22 12/27/22 History mL) subcutaneous pen (Lantus Solostar U-100 Insulin) lisinopril 40 mg tablet 40 mg PO HS 12/27/22 12/27/22 History multivitamin 1 tab PO DAILY 12/27/22 12/27/22 History pioglitazone 45 mg tablet 45 mg PO DAILY 12/27/22 12/27/22 History tramadol 50 mg tablet 50 mg PO BID PRN Pain 12/27/22 12/27/22 History vit C 250 mg-vit E 90 mg-zinc 40 1 cap PO DAILY 12/27/22 12/27/22 History mg-copper 1 [id number] capsule (PreserVision AREDS-2) Patient History Medical History (Updated 12/27/22 @ 21:48 by Gaston Novak DPM, MS) PVD (peripheral vascular disease) T2DM (type 2 diabetes mellitus) TIA (transient ischemic attack) Social History Smoking Status: Current every day smoker Tobacco Type: Cigarettes Second Hand Exposure: Yes; Do You Dip or Chew Tobacco: No; Tobacco Cessation Education Requested by Patient: No Hx Substance Use: No Preferred Language: Turkish Communication Ability: Effective Credit Risk Manager Required: No Beliefs That Will Affect Care: None Current Living Situation: Alone Other Information That Helps Us Care for You: No Feels Safe at Home: Yes Safety Concerns: Feels Safe At This Time Assistive Devices: Cane, Scooter/Electric Scooter and Walker Review of Systems Review of Systems: All systems reviewed & are unremarkable except as noted in HPI & below Physical Exam Constitutional: cooperative Neck: trachea midline Respiratory: normal respiratory effort Cardiovascular: Vessels: posterior tibial pulses present Musculoskeletal: Extremities: + foot abnormality (Transmetatarsal amputation) Right Skin: + ulcer (Right foot and ankle Eschar with adjacent erythema) and + erythema (Right foot) Neurologic: moves all extremities (Absent epicritic sensation) Psychiatric: Orientation: alert and oriented x 3 Results & Data Vital Signs (Past 12 Hours) Vital Signs Temp Pulse Pulse Pulse Resp BP BP 12/27/22 20:12 37.1 C 94 H 18 191/77 H 12/27/22 19:35 79 27 H 138/76 12/27/22 19:30 78 20 153/81 H 12/27/22 19:20 80 20 147/71 H 12/27/22 19:11 83 23 150/70 H 12/27/22 19:05 77 20 143/69 H 12/27/22 19:00 77 20 144/70 H 12/27/22 18:50 80 19 142/77 H 12/27/22 18:45 79 22 151/78 H 12/27/22 18:58 77 12/27/22 18:44 80 19 149/86 H 12/27/22 16:11 157/57 H 12/27/22 16:11 75 21 12/27/22 16:10 74 26 H 12/27/22 16:05 91 H 23 12/27/22 16:05 203/92 H 12/27/22 16:00 72 25 H 12/27/22 16:00 168/97 H 12/27/22 15:55 74 17 12/27/22 15:55 161/78 H 12/27/22 15:50 73 20 12/27/22 15:50 171/84 H 12/27/22 15:45 152/95 H 12/27/22 15:45 72 24 12/27/22 15:40 73 14 12/27/22 15:40 161/80 H 12/27/22 15:36 78 21 12/27/22 15:36 158/64 H 12/27/22 15:30 72 19 12/27/22 15:30 158/72 H 12/27/22 15:25 146/78 H 12/27/22 15:25 77 14 12/27/22 15:20 69 17 12/27/22 15:20 164/76 H 12/27/22 15:15 169/80 H 12/27/22 15:15 74 17 12/27/22 15:10 73 22 12/27/22 15:10 159/75 H 12/27/22 15:05 154/73 H 12/27/22 15:05 72 18 12/27/22 15:00 73 14 12/27/22 15:00 146/70 H 12/27/22 15:02 75 12/27/22 13:41 36.8 C 84 20 156/70 H Pulse Ox O2 Del Method 12/27/22 20:12 96 Room Air 12/27/22 19:35 95 Room Air 12/27/22 19:30 96 Room Air 12/27/22 19:20 96 Room Air 12/27/22 19:11 97 Room Air 12/27/22 19:05 95 Room Air 12/27/22 19:00 95 Room Air 12/27/22 18:50 96 Room Air 12/27/22 18:45 97 Room Air 12/27/22 18:58 12/27/22 18:44 95 Room Air 12/27/22 16:11 12/27/22 16:11 95 12/27/22 16:10 94 12/27/22 16:05 95 12/27/22 16:05 12/27/22 16:00 95 12/27/22 16:00 12/27/22 15:55 95 12/27/22 15:55 12/27/22 15:50 93 12/27/22 15:50 12/27/22 15:45 12/27/22 15:45 98 12/27/22 15:40 97 12/27/22 15:40 12/27/22 15:36 94 12/27/22 15:36 12/27/22 15:30 98 12/27/22 15:30 12/27/22 15:25 12/27/22 15:25 98 12/27/22 15:20 97 12/27/22 15:20 12/27/22 15:15 12/27/22 15:15 98 12/27/22 15:10 96 12/27/22 15:10 12/27/22 15:05 12/27/22 15:05 94 12/27/22 15:00 97 12/27/22 15:00 12/27/22 15:02 12/27/22 13:41 98 Room Air [phone] Magnetic Resonance Report Patient:BUTCH DE LA ROSA Admit Date:12/27/22 MR#:[id number] Address1:[address] Acct ID:[id number] Address2: Date:[address] [facility] Zip:[place] [address] Age:67 Location:ED Sex:M Room/Bed: Att Phy: Diagnosis:INFECTION IN FOOT Joleen Phy:Michel Warren D.O. Service Date:12/27/22 Fam Phy: Interpreting Phy:Pan Tracy MDAdmit Phy: Ordering Phy:Jennifer Rodrigez PA-C cc: ~ MR ankle RT wo/w con CLINICAL HISTORY: eval osteo right foot wound TECHNIQUE: Multisequence, multiplanar MR images of the right ankle were obtained without contrast.. COMPARISON: Comparison is made to foot radiographs of 1123 FINDINGS: There is bony edema in the cuneiforms and first through third metatarsals. Soft tissue swelling is seen with a focal heterogeneous fluid collection in the dorsal soft tissues. IMPRESSION: Findings are compatible with osteomyelitis of the cuneiforms and first through third metatarsals with associated cellulitis. A heterogeneous developing abscess in the dorsal foot cannot be excluded. ACT 112: Negative or not required by law. Electronically signed by: Pan Tracy M.D. 12/27/2022 6:43 PM
[2022-12-27] MEDS: PIPERACILLIN/TAZOBACTAM 4.5 GM in DEXTROSE 5% 100 ML IV SCH (22:34)
[2022-12-28] MEDS: Patient's HEIGHT &/or WEIGHT Needed SCH (00:17)
[2022-12-28] MEDS ORDERED: Nursing to Pharmacy Communication SCH ×2 (01:00→21:30)
[2022-12-28] MEDS: LACTATED RINGER'S 1,000 ML IV SCH ×3 (04:56→19:29)
[2022-12-28] MEDS: PIPERACILLIN/TAZOBACTAM 4.5 GM in DEXTROSE 5% 100 ML IV SCH ×3 (05:41→21:25)
[2022-12-28] MEDS: HEPARIN SOD 5,000 UNIT/0.5 ML VIAL SQ SCH ×2 (05:42→15:47)
[2022-12-28] MEDS: INSULIN ASPART PER UNIT CHARGE SC SCH ×3 (05:46→19:55)
[2022-12-28] MEDS: traMADol HCL 50 MG TABLET PO PRN ×2 (06:16→19:39)
[2022-12-28 07:15] LABS: Basophils # (auto) 0.08 K/uL (0-0.2); Basophils % (auto) 0.7 %; Eosinophils # (auto) 0.15 K/uL (0-0.50); Eosinophils % (auto) 1.2 %; Hematocrit (blood only) 25.6 % (42.0-52.0); Hemoglobin 8.8 g/dl (14.0-18.0); Immature Granulocytes # (auto) 0.08 K/uL (0.01-0.20); Immature Granulocytes % (auto) 0.7 %; Lymphocytes # (auto) 1.97 K/uL (1.2-3.4); Lymphocytes % (auto) 16.3 %; Mean Corpuscular Hemoglobin 33.5 pg (25.0-34.0); Mean Corpuscular Hgb Conc 34.4 g/dL (32.0-36.0); Mean Corpuscular Volume 97.3 fL (80.0-100.0); Mean Platelet Volume 9.3 fL (9.4-12.4); Monocytes # (auto) 1.16 K/uL (0.11-0.59); Monocytes % (auto) 9.6 %; Neutrophils # (auto) 8.63 K/uL (1.40-6.50); Neutrophils % (auto) 71.5 %; Platelet Count 420 K/uL (130-400); RDW Coefficient of Variation 13.4 % (11.5-14.5); RDW Standard Deviation 47.8 fL (36.4-46.3); Red Blood Count 2.63 M/uL (4.70-6.10); White Blood Count 12.07 K/ul (4.8-10.8)
[2022-12-28 07:28] LABS: Albumin Level 2.9 gm/dl (3.4-5.0); BUN Creatinine Ratio 13.1 (10-20); Bilirubin,Total 0.2 mg/dl (0.2-1.0); C Reactive Protein 19.85 mg/dl (0-0.5); Calcium 8.6 mg/dl (8.6-10.3); Creatinine Clr Calc Pharmacy 55.3 ml/min; Est GFR (African American) 48.7 ml/min; Potassium 3.9 mmol/L (3.5-5.1); Total Protein 5.9 gm/dl (6.0-8.3)
[2022-12-28] MEDS: CLOPIDOGREL BISULFATE 75 MG TAB PO SCH (09:10)
[2022-12-28] MEDS ORDERED: LANTUS PER UNIT CHARGE SQ ONE (09:28)
[2022-12-28] MEDS: ACETAMINOPHEN 500 MG TAB PO PRN (09:35)
[2022-12-28] MEDS: cilostazoL 100 MG TAB PO SCH ×2 (09:36→21:33)
[2022-12-28] MEDS: GABAPENTIN 600 MG TAB PO SCH ×3 (09:36→19:39)
[2022-12-28] MEDS: ASCORBIC ACID 500 MG TAB PO SCH (09:37)
[2022-12-28] MEDS: HYDROmorphone INJ 0.5 MG/0.5 ML SYR IV PRN ×3 (11:16→21:22)
--- NOTE | 2022-12-28 11:56 | Anesthesiology Consultation ---
Date of Service December 28, 2022 Assessment & Plan (1) Encounter for pre-operative examination: Chart Review Chart Review: Acceptable Risk for Surgery (preop ECG needs to be done (ordered)) History Surgery Operation Date: 12/28/22 09:40 Proposed Procedures p Right Foot Transmetatarsal Amputation - Gaston Novak DPM, MS Height/Weight Height: 6 ft 1 in Weight: 103.2 kg Allergies Allergy/AdvReac Type Severity Reaction Status Date / Time bee venom protein (honey bee) Allergy Severe Anaphylaxis Unverified 12/27/22 16:09 Medications Home Medications Medication Instructions Recorded Confirmed Last Taken acetaminophen 500 mg tablet 500 mg PO DAILY PRN Pain 12/27/22 12/27/22 Unknown ascorbic acid (vitamin C) 500 mg 500 mg PO DAILY 12/27/22 12/27/22 Unknown tablet atorvastatin 20 mg tablet 20 mg PO DAILY 12/27/22 12/27/22 Unknown cholecalciferol (vitamin D3) 50 50 mcg PO DAILY 12/27/22 12/27/22 Unknown mcg (2,000 unit) capsule (Vitamin D3) cilostazol 100 mg tablet 100 mg PO BID 12/27/22 12/27/22 Unknown clindamycin HCl 300 mg capsule 300 mg PO Q6H 12/27/22 12/27/22 Unknown clopidogrel 75 mg tablet 75 mg PO DAILY 12/27/22 12/27/22 Unknown epinephrine 0.3 mg/0.3 mL 0.3 mg IM DIRECTED 12/27/22 12/27/22 Unknown injection, auto-injector finerenone 10 mg tablet (Kerendia) 10 mg PO DAILY 12/27/22 12/27/22 Unknown gabapentin 300 mg capsule 600 mg PO QID 12/27/22 12/27/22 Unknown insulin aspart U-100 100 unit/mL 0 unit subcut DIRECTED 12/27/22 12/27/22 Unknown (3 mL) subcutaneous pen (Novolog FlexPen U-100 Insulin aspart) insulin glargine 100 unit/mL (3 0 unit subcut QPM 12/27/22 12/27/22 Unknown mL) subcutaneous pen (Lantus Solostar U-100 Insulin) lisinopril 40 mg tablet 40 mg PO HS 12/27/22 12/27/22 Unknown multivitamin 1 tab PO DAILY 12/27/22 12/27/22 Unknown pioglitazone 45 mg tablet 45 mg PO DAILY 12/27/22 12/27/22 Unknown tramadol 50 mg tablet 50 mg PO BID PRN Pain 12/27/22 12/27/22 Unknown vit C 250 mg-vit E 90 mg-zinc 40 1 cap PO DAILY 12/27/22 12/27/22 Unknown mg-copper 1 [id number] capsule (PreserVision AREDS-2) Active Medications Generic Name Dose Route Start Last Admin Trade Name Ronel PRN Reason Stop Dose Admin Acetaminophen 500 mg 12/27/22 19:58 12/28/22 09:35 Acetaminophen 500 Mg Tab PO 01/26/23 19:57 500 mg DAILY PRN Administration Pain Ascorbic Acid 500 mg 12/28/22 09:00 12/28/22 09:37 Ascorbic Acid 500 Mg Tab PO 01/27/23 08:59 500 mg DAILY ZINA Administration Cilostazol 100 mg 12/27/22 21:00 12/28/22 09:36 Cilostazol 100 Mg Tab PO 01/26/23 20:59 100 mg BID ZINA Administration Clopidogrel Bisulfate 75 mg 12/28/22 09:00 12/28/22 09:10 Clopidogrel Bisulfate 75 Mg Tab PO 01/27/23 08:59 Not Given DAILY ZINA Gabapentin 600 mg 12/27/22 21:00 12/28/22 09:36 Gabapentin 600 Mg Tab PO 01/26/23 20:59 600 mg QID ZINA Administration Heparin Sodium (Porcine) 5,000 units 12/27/22 22:00 12/28/22 05:42 Heparin Sod 5,000 Unit/0.5 Ml Vial SQ 01/26/23 21:59 5,000 units Q8 ZINA Administration Hydromorphone HCl 0.5 mg 12/28/22 10:57 12/28/22 11:16 Hydromorphone Inj 0.5 Mg/0.5 Ml Syr IV 01/11/23 10:56 0.5 mg Q4H PRN Administration Breakthrough Pain Lactated Ringer's 1,000 mls @ 100 mls/hr 12/27/22 17:45 12/28/22 04:56 Lr IV 01/26/23 17:44 100 mls/hr .Q10H ZINA Administration Piperacillin Sod/Tazobactam 120 mls @ 30 mls/hr 12/27/22 21:00 12/28/22 11:10 Sod 4.5 gm/ Dextrose IV 01/03/23 20:59 Infused Q8H [facility] Infusion Protocol Insulin Aspart 0 units 12/28/22 06:00 12/28/22 05:46 Insulin Aspart Per Unit Charge SC 01/27/23 05:59 2 units Q6 ZINA Administration Insulin Glargine 10 units 12/27/22 21:00 12/27/22 20:51 Lantus Per Unit Charge SQ 01/26/23 20:59 10 units BID ZINA Administration Miscellaneous 1 each 12/28/22 00:00 12/28/22 09:37 Finerenone- Order Awaiting Action N/A 01/27/23 00:00 Not Given QS ZINA Tramadol HCl 50 mg 12/27/22 19:58 12/28/22 06:16 Tramadol Hcl 50 Mg Tablet PO 01/26/23 19:57 50 mg BID PRN Administration Pain NPO Date Last Intake of Fluids: 12/28/22 Time Last Intake of Fluids: 09:30 Last Intake of Fluids Comment: sip of water with medications Past Medical History Medical History (Updated 12/28/22 @ 11:56 by Cruzito Valdes MD) CKD (chronic kidney disease) PVD (peripheral vascular disease) T2DM (type 2 diabetes mellitus) TIA (transient ischemic attack) Past Surgical History Surgical History (Updated 12/28/22 @ 11:55 by Cruzito Valdes MD) History of femoropopliteal bypass Social History Smoking Status: Current every day smoker tobacco type: cigarettes Do You Dip or Chew Tobacco: No Hx Substance Use: No substance use type: does not use Physical Exam Vital Signs Last Vital Signs Temp 37.2 C 12/28/22 07:05 Pulse 77 12/28/22 07:05 Resp 20 12/28/22 07:05 BP 141/68 H 12/28/22 07:05 Pulse Ox 95 12/28/22 07:05 O2 Del Method Room Air 12/28/22 07:05 Testing Laboratory Results 12/28/22 06:22 12/28/22 06:22 Urine Color Yellow 12/27/22 16:10 Urine Appearance Clear (Clear) 12/27/22 16:10 Urine pH 5.5 (4.5-7.5) 12/27/22 16:10 Ur Specific [place] 1.019 (1.000-1.030) 12/27/22 16:10 Urine Protein 1+ (Negative) H 12/27/22 16:10 Urine Glucose (UA) Negative (Negative) 12/27/22 16:10 Urine Ketones Negative (Negative) 12/27/22 16:10 Urine Nitrite Negative (Negative) 12/27/22 16:10 Ur Leukocyte Esterase Negative (Negative) 12/27/22 16:10 Urine WBC (Auto) 1-5 /hpf (0-5) 12/27/22 16:10 Urine RBC (Auto) 0-4 /hpf (0-4) 12/27/22 16:10 U Hyaline Cast (Auto) 1-5 /lpf (0-5) 12/27/22 16:10 U Epithel Cells (Auto) 10-20 /lpf (0-5) H 12/27/22 16:10 Urine Bacteria (Auto) Negative (Negative) 12/27/22 16:10 12/28/22 05:38 POC Glucose 172 H
--- NOTE | 2022-12-28 13:37 | Hospitalist Progress Note ---
Date of Service December 28, 2022 Assessment & Plan (1) Diabetic foot infection: Plan: Diabetic foot infection w/ osteomyelitis of R foot With concurrent vascular disease, patient reports history of right lower extremity vascular bypass (? fempop, pending records from [facility]) With poorly controlled DM Admitted to [facility] and discharged x2, most recently on doxycycline for MRSA with adjunct clindamycin added 12/26 by hand etcher on follow-up and recommended for ER evaluation Patient expresses frustration with [facility] and [facility], prefers to be managed at this institution and would like to establish with vascular at [facility] if possible. Given DFI with history of MRSA will admit on Dapto/Zosyn - Prior Vascular Surgeon- [facility] Tasia Ho [facility]. Animal Maintenance Supervisor Dr. Farzana Dwyer [facility] Continue broad coverage for DFI with worsening infection, continue Zosyn/Dapto at this time. Cultures were taken at [facility] 12/26. Statin held while on Dapto Peripheral vascular disease With history of arterial bypass Partial records received. Additional records from [facility] pending. Per printed record review patient did have a US arterial Doppler 12/21 which showed mid distal right superficial femoral artery stenosis with intact but diminished waveforms distal to area of stenosis; 50% right FIRESTOPPER TECHNICIAN and 50% proximal right superficial femoral artery stenoses were noted. Awaiting operative records for history of patient's stenting, this was reportedly in 10/06/2020 and 06/07/2021 at [facility] Did discuss with vascular surgery 12/28. Will obtain updated arterial Dopplers while in house, and they will see him in consult tomorrow morning. Do not need to delay osteomyelitis operative revision with Dr. Novak for this - XR: No focal erosion is seen to suggest osteomyelitis. Patient is status post midfoot amputation. Soft tissues appear heterogeneous and edema/emphysema cannot be entirely excluded. If there is continued clinical concern, MRI is a more sensitive modality for osteoarthritis. - MRI shows right cuneiform and metatarsal osteomyelitis. Podiatry following, anticipate surgical revision 7/ Plavix, cilostazol - Atorvastatin continued Discussed importance of DM control, smoking cessation with patient CKD 3 Admitting creatinine 1.67, repeat 1.6 Pending baseline creatinine verification, suspect this around 1.3 based on history of CKD Trend BMP daily Transaminitis Mild, with history of hyperlipidemia. Patient denies history of liver disease Baseline levels and outside reconciliation remains pending. Acute hepatitis panel and liver ultrasound routine order Type II DM, acute hyperglycemia Admitting BSG 317. Hold home pioglitazone Lactate normal Suspect elevation in the setting of infection Admitted on basal bolus based on TDD with pharmacy glycemic consult - CF 25/Ratio 9 Basal 15 BID (dose reduce to 10u BID while NPO) History of TIA No residual deficits Continued on Plavix 75 mg daily, patient also takes this due to his peripheral vascular disease DVT prophylaxis: SCDs, heparin subcu post-op Diet: N.p.o. pending surgical intervention 12/28 Disposition: Medical/surgical CODE STATUS: Full (2) T2DM (type 2 diabetes mellitus): (3) TIA (transient ischemic attack): (4) PVD (peripheral vascular disease): Admission and Anticipated Discharge Date Admission Date: December 27, 2022 Subjective No new complaints overnight. Patient laying comfortably in bed, notes that he does have an ache in his right lower extremity which is incompletely improved with tramadol. Pain is currently approximately 7/10. Otherwise no acute concerns. Denies fever, chills, sweats, lightheadedness, dizziness, nausea, vomiting. MsLita n.p.o. awaiting revision of his right foot osteomyelitis with podiatry Review of Systems Review of Systems: All systems reviewed & are unremarkable except as noted in Subjective Physical Exam Physical Exam: General: A&Ox3. NAD. Cooperative. HEENT: Atraumatic, normocephalic. Vision/hearing grossly intact Pulm: CTAB A&P. -wheezes, -rales, -rhonchi. Symmetrical chest rise. No increased work of breathing. No respiratory distress. Cardiac: RRR, -mrg. Radial pulses intact and symmetrical. Abdominal: Nontender, nondistended, soft. BS present. Extremities: Right lower extremity with proximal thigh and proximal posterior right lower extremity incisions from prior vascular surgery, well-healed. Right PT pulse is intact to both palpation and Doppler. Healing, nonerythematous, nontender right plantar lateral ulcer is present. In addition to this to fluctuant, tender, warm, erythematous ulcerations at the medial ankle with eschar and lateral aspect of the dorsal foot are present with purulent. See admitting HPI for photo Results & Data Results & Data Vital Signs (Past 12 Hours) Vital Signs Temp Pulse Resp BP Pulse Ox O2 Del Method 12/28/22 07:05 37.2 C 77 20 141/68 H 95 Room Air PG Care Time/CCT Total # of Minutes Spent Total Time Spent with Patient: Total time spent is greater than 50% in coordination of care (as documented) at patient's floor/unit and/or counseling patient: Coding Level of Care Code 52437 SUB INP/OBS CARE 3/50MIN Diagnoses Diabetic foot infection E11.628; L08.9 T2DM (type 2 diabetes mellitus) E11.9 TIA (transient ischemic attack) G45.9 PVD (peripheral vascular disease) I73.9
--- NOTE | 2022-12-28 14:31 | Electrocardiogram Report ---
Test Reason : Blood Pressure : / mmHG Vent. Rate : 062 BPM Atrial Rate : 062 BPM P-R Int : 188 ms QRS Dur : 066 ms QT Int : 446 ms P-R-T Axes : 053 044 045 degrees QTc Int : 452 ms Normal sinus rhythm Normal ECG No previous ECGs available Confirmed by Moose Fleming ([id number]) on 12/28/2022 2:31:01 PM Referred By: Roger Dwyer Confirmed By:Matthew Fleming
[2022-12-28] MEDS ORDERED: ONDANSETRON INJ 2 MG/ML 2 ML VIAL IV PRN (16:41)
[2022-12-28] MEDS ORDERED: ATROPINE SULFATE 0.1 MG/ML 10ML SYR IV PRN (16:41)
[2022-12-28] MEDS ORDERED: ePHEDrine sulfate 50 MG/ML AMP IV PRN (16:41)
--- NOTE | 2022-12-28 16:50 | History & Physical Bridge Note ---
Date of Service December 28, 2022 History & Physical Bridge Note I have examined the patient, reviewed the History & Physical and in the interval since the performance of the History & Physical I have noted the following changes of clinical significance: no changes noted
--- NOTE | 2022-12-28 17:25 | Ultrasound Report ---
ULTRASOUND RIGHT LOWER EXTREMITY ARTERIAL CLINICAL HISTORY: Peripheral arterial disease. Chronic osteomyelitis. COMPARISON STUDY: No priors. TECHNIQUE: Real-time, roper scale and color Doppler sonography of the arteries of the right lower extr emity is performed from the inguinal crease to the foot. Ankle-brachial indices were not assessed due to lower extremity wounds. FINDINGS: Advanced atherosclerotic plaque and irregularity seen throughout the arteries of the right lower extremity. A graft extending from the common femoral artery to the proximal calf appears thromb osed. There are biphasic to triphasic waveforms in the common femoral artery with velocities measurin g up to 257 cm/s. The profunda femoris artery is patent with velocities measuring up to 227 cm/s. The re are biphasic arterial waveforms in the proximal superficial femoral artery with velocities measuri ng up to 324 cm/s. There is segmental thrombosis within the midportion of the superficial femoral art olimpia with reconstitution in the distal superficial femoral/proximal artery. There is retrograde flow a t the site of reconstitution. There are monophasic waveforms in the popliteal artery with velocities measuring up to 80 cm/s. There is monophasic flow within the calf vessels. The proximal anterior tibi al artery is patent with velocities measuring up to 36 cm/s. The mid to distal portions of the vessel appear occluded. The posterior tibial artery is patent with velocities measuring up to 49 cm/s. The peroneal artery is thrombosed. No flow was shown in the dorsalis pedis artery. IMPRESSION: 1. A graft extending from the common femoral artery to the calf is occluded. 2. There are focally elevated velocities within the common femoral artery and the proximal superficia l femoral artery indicating high-grade stenosis. 3. There is a long segment of thrombosis involving the mid to distal superficial femoral artery with distal reconstitution. 4. There is one-vessel runoff to the foot. The posterior tibial artery is patent 5. The mid to distal anterior tibial artery, the peroneal artery, and the dorsalis pedis artery are o ccluded. Dictated: 12/28/2022 4:40 PM Transcribed: 12/28/2022 5:11 PM Fern [id number] [email or web address] [id number] Electronically signed by: Martin Jensen M.D. 12/28/2022 5:24 PM
[2022-12-28] MEDS ORDERED: MIDAZOLAM HCL 1 MG/ML 2ML VIAL ONE (17:28)
[2022-12-28] MEDS ORDERED: ePHEDrine sulfate 50 MG/ML AMP ONE (17:28)
[2022-12-28] MEDS ORDERED: PROPOFOL IV EMULSION 10 MG/ML 20 ML VIAL IV ONE ×2 (17:28→17:46)
[2022-12-28] MEDS ORDERED: fentaNYL citrate PF 100 MCG/2 ML VIAL ONE (17:28)
[2022-12-28] MEDS ORDERED: VANCOMYCIN HCL 1000MG/20ML VIAL ONE (17:48)
--- NOTE | 2022-12-28 18:01 | Post Operative Brief Note ---
Immediate Post Op Note v1 Date of Surgery December 28, 2022 Pre & Post Diagnosis Operation Date: 12/28/22 09:40 <No data on this case meets the specified criteria> I identified the patient and participated in the time-out.: Yes Procedure Operation Date: 12/28/22 09:40 <No data on this case meets the specified criteria> Surgeon Gaston Novak, KIKA, MS Play Therapist None Estimated Blood Loss 0 Findings Consistent with Post-Op Diagnosis Consistent with pre-operative findings Specimens Deep culture swab - micro Tarsal metatarsal joint Right foot - Micro
[2022-12-28] MEDS: fentaNYL citrate PF 100 MCG/2 ML VIAL IV PRN ×2 (18:17→18:22)
[2022-12-28] MEDS: VANCOMYCIN TOP ONE ×2 (18:20→19:26)
--- NOTE | 2022-12-28 18:21 | Anesthesiology Progress Note ---
Date of Service December 28, 2022 Anesthesia Post Procedure Vital Signs Vital Signs: Temp Pulse Pulse Pulse Resp BP BP 12/28/22 16:25 37.5 C 72 18 165/72 H 12/28/22 07:05 37.2 C 77 20 141/68 H 12/27/22 20:12 37.1 C 94 H 18 191/77 H 12/27/22 19:35 79 27 H 138/76 12/27/22 19:30 78 20 153/81 H 12/27/22 19:20 80 20 147/71 H 12/27/22 19:11 83 23 150/70 H 12/27/22 19:05 77 20 143/69 H 12/27/22 19:00 77 20 144/70 H 12/27/22 18:50 80 19 142/77 H 12/27/22 18:45 79 22 151/78 H 12/27/22 18:58 77 12/27/22 18:44 80 19 149/86 H Pulse Ox O2 Del Method 12/28/22 16:25 97 Room Air 12/28/22 07:05 95 Room Air 12/27/22 20:12 96 Room Air 12/27/22 19:35 95 Room Air 12/27/22 19:30 96 Room Air 12/27/22 19:20 96 Room Air 12/27/22 19:11 97 Room Air 12/27/22 19:05 95 Room Air 12/27/22 19:00 95 Room Air 12/27/22 18:50 96 Room Air 12/27/22 18:45 97 Room Air 12/27/22 18:58 12/27/22 18:44 95 Room Air Pain Intensity Right Foot: Pain Intensity: 7 Transfer of Care Handoff Completed per policy Notes Mental Status: alert / awake / arousable Patient Amnestic to Procedure: Yes Nausea / Vomiting: adequately controlled Pain: adequately controlled Airway Patency, RR, SpO2: stable & adequate BP & HR: stable & adequate Hydration State: stable & adequate Anesthetic Complications: no major complications apparent
[2022-12-28] MEDS ORDERED: BUPIVACAINE 0.5 % 5 MG/1 ML MPF 30ML VIAL INFIL ONE (18:22)
--- NOTE | 2022-12-28 18:47 | Communication Note ---
Date of Service: December 28, 2022 Peripheral arterial Doppler reviewed, much more extensive thrombosis and stenosis and suggested by earlier OSH Doppler IMPRESSION: 1. A graft extending from the common femoral artery to the calf is occluded. 2. There are focally elevated velocities within the common femoral artery and the proximal superficial femoral artery indicating high-grade stenosis. 3. There is a long segment of thrombosis involving the mid to distal superficial femoral artery with distal reconstitution. 4. There is one-vessel runoff to the foot. The posterior tibial artery is patent 5. The mid to distal anterior tibial artery, the peroneal artery, and the dorsalis pedis artery are occluded. Given above will start on heparin 6 hours post-op with low-dose nomogram no bolus to minimize bleeding post right foot osteomyelitis revision
--- NOTE | 2022-12-28 19:18 | Anesthesiology Progress Note ---
Date of Service December 28, 2022 Anesthesia Post Procedure Vital Signs Vital Signs: Temp Pulse Pulse Pulse Resp BP BP 12/28/22 19:10 37.3 C 83 16 158/64 H 12/28/22 18:51 36.9 C 85 18 163/72 H 12/28/22 18:25 78 18 162/72 H 12/28/22 18:35 36.8 C 78 20 156/66 H 12/28/22 18:15 71 20 154/76 H 12/28/22 18:08 36.5 C 84 20 158/72 H 12/28/22 16:25 37.5 C 72 18 165/72 H 12/28/22 07:05 37.2 C 77 20 141/68 H 12/27/22 20:12 37.1 C 94 H 18 191/77 H 12/27/22 19:35 79 27 H 138/76 12/27/22 19:30 78 20 153/81 H 12/27/22 19:20 80 20 147/71 H Pulse Ox O2 Del Method O2 Flow Rate 12/28/22 19:10 95 Room Air 12/28/22 18:51 95 Room Air 12/28/22 18:25 95 Nasal Cannula 2 12/28/22 18:35 97 Nasal Cannula 2 12/28/22 18:15 95 Nasal Cannula 2 12/28/22 18:08 95 Room Air 12/28/22 16:25 97 Room Air 12/28/22 07:05 95 Room Air 12/27/22 20:12 96 Room Air 12/27/22 19:35 95 Room Air 12/27/22 19:30 96 Room Air 12/27/22 19:20 96 Room Air Pain Intensity Right Foot: Pain Intensity: 5 Transfer of Care Handoff Completed per policy Notes Mental Status: alert / awake / arousable and participated in evaluation Patient Amnestic to Procedure: Yes Nausea / Vomiting: adequately controlled Pain: adequately controlled Airway Patency, RR, SpO2: stable & adequate BP & HR: stable & adequate Hydration State: stable & adequate Anesthetic Complications: no major complications apparent and Pt Satisfied with anesthetic care
[2022-12-28] MEDS: DAPTOmycin 350 MG in SYRINGE 0 ML IV SCH (19:29)
--- NOTE | 2022-12-28 20:25 | Operative Report ---
Post Operative Report Pre & Post Diagnosis Operation Date: 12/28/22 09:40 Pre-Op Diagnosis: Diabetic foot infection Post-Op Diagnosis: Diabetic foot infection I identified the patient and participated in the time-out.: Yes Procedure Operation Date: 12/28/22 09:40 Actual Procedures p Right Foot Transmetatarsal Amputation(Right) - Gaston Novak DPM, MS Surgeon Gaston Novak DPM, MS Internet Designer None Estimated Blood Loss 0 Findings Consistent with Post-Op Diagnosis Consistent with pre - operative diagnosis Specimens Deep Culture Swab - micro Tarsal metatarsal joint Right - micro Description of Procedure History of present illness: Patient is a 67 year old male who is seen for treatment of osteomyelitis to metatarsals and cuneiforms of right foot. Patient has history of multiple previous foot surgeries and debridements. Patient currently has open right foot wounds with adjacent erythema. I discussed Patient's wish for removal of infected bone and wash out surgery. All questions answered. Discussed procedure in detail and postoperative recovery. All potential risks, benefits, complications, alternatives, rehab, potential for incomplete relief of symptoms, need for further surgery, DVT, PE, , persistent pain, swelling, scarring, weakness, neurovascular, wound complications and potential for amputations were discussed with patient. Unwanted outcomes such as, but not limited to were reviewed including under correction, overcorrection, return of deformity, infection. All questions were answered. Patient has decided to proceed with procedure as indicated. Preoperative diagnosis: 1.) Right foot cellulitis 2.) Right foot osteomyelitis 3.) Right diabetic foot ulcers Postoperative diagnosis: Same Name of operation: 1.) Right foot debridement and wash out 2.) Right trans- metatarsal amputation with delayed primary closure Surgeon Dr. Novak Internet Designer: None Anesthesia: General anesthesia care Hemostasis: Anatomic dissection, Pneumatic calf tourniquet Estimated blood loss: Minimal Procedure in detail: Under mild sedation the patient was brought in the operating room placed on the operating table in supine position. A pneumatic thigh tourniquet was then placed about the patient's right thigh. Following IV sedation local anesthesia was obtained about the right ankle utilizing 10 cc of 0.5% Marcaine plain. The foot was then prepped scrubbed and draped in usual aseptic manner. An Esmarch bandage was utilized to exsanguinate the patient's right foot and the pneumatic calf tourniquet was then inflated. Attention was then directed to the right dorsal foot ulcer foot. A fishmouth incision was created utilizing a sharp, sterile, #15 blade encompassing the dorsal foot wound. The incision which was deepened through subcutaneous tissue using sharp blunt dissection. Care was taken to identify and retract all vital neurovascular structures. All bleeders were ligated and cauterized necessary. The wound was excised and placed on the back table. Once down to the layer of periosteum and bone, a transverse incision was made within the periosteum. A flores elevator was then used to free the soft tissue at the site of the metatarsal and and cuneiforms. Once this was then performed with the use of a sagittal saw the cuneiforms were then transversely cut in a fashion. . Once all the cuneiforms have been cut, the metatarsals and cuneiforms were then disarticulated from the surrounding soft tissue with the use of a 15 blade. The patient at that point then had the forefoot completely disarticulated and passed off to the back. This was labeled tarsal metatarsal joint and was sent to microbiology for culture and sensitivity. Attention was now directed back towards the forefoot. There was no gross infectious signs noted at this point. Attention was now directed back towards the anterior ankle where a wound was located measuring approximately 2.5 x 3 x 0.5 cm. Using a sharp, sterile, #15 blade the wound was excised in toto. The patient then underwent copious irrigation with the use of 3 L of lactate ringer. All participants in the surgery removed their top layer of gloves and only clean instrumentation was used from here on out. Hemostasis was acquired. 1 gram of vancomycin powder was placed in to the wounds. To make sure that the patient will not further demarcate over the next three days it was decided the wound would not be closed. In addition, the patient had some erythema with presentation today. I did not wish for the patient to undergo closure as there was the possibility of possible infection within the wound bed. The pneumatic tourniquet was deflated and a prompt hyperemic response was noted to the right foot. 4x4's, ABD, Kerlix and Santiago were applied. The Patient tolerated the procedure and anesthesia well. He was transferred to recovery room vital signs stable. After postoperative monitoring the patient will be re admitted to the floor resuming all pre operative orders. I attest to the content of the Intraoperative Record and any orders documented therein. Any exceptions are noted below.
[2022-12-28] MEDS: LANTUS PER UNIT CHARGE SQ SCH (21:31)
[2022-12-29] MEDS ORDERED: Heparin IV Adult Wt-Based Low-Dose *NO* Bolus Protocol IV ONE
[2022-12-29] MEDS ORDERED: HYDROmorphone INJ 0.5 MG/0.5 ML SYR IV STA (00:08)
[2022-12-29] MEDS: INSULIN ASPART PER UNIT CHARGE SC SCH ×4 (00:15→17:59)
[2022-12-29] MEDS: GABAPENTIN 600 MG TAB PO SCH ×5 (00:16→20:03)
[2022-12-29] MEDS: HEPARIN SODIUM/DEXTROSE 25,000 UNITS/500 ML BAG IV SCH (00:45)
[2022-12-29 01:03] LABS: Basophils # (auto) 0.06 K/uL (0-0.2); Basophils % (auto) 0.6 %; Eosinophils # (auto) 0.12 K/uL (0-0.50); Eosinophils % (auto) 1.2 %; Hematocrit (blood only) 25.4 % (42.0-52.0); Hemoglobin 8.6 g/dl (14.0-18.0); Immature Granulocytes # (auto) 0.06 K/uL (0.01-0.20); Immature Granulocytes % (auto) 0.6 %; Lymphocytes # (auto) 1.57 K/uL (1.2-3.4); Lymphocytes % (auto) 15.5 %; Mean Corpuscular Hemoglobin 33.6 pg (25.0-34.0); Mean Corpuscular Hgb Conc 33.9 g/dL (32.0-36.0); Mean Corpuscular Volume 99.2 fL (80.0-100.0); Mean Platelet Volume 8.9 fL (9.4-12.4); Monocytes # (auto) 0.92 K/uL (0.11-0.59); Monocytes % (auto) 9.1 %; Neutrophils # (auto) 7.39 K/uL (1.40-6.50); Platelet Count 387 K/uL (130-400); RDW Coefficient of Variation 13.4 % (11.5-14.5); RDW Standard Deviation 49.4 fL (36.4-46.3); Red Blood Count 2.56 M/uL (4.70-6.10); White Blood Count 10.12 K/ul (4.8-10.8)
[2022-12-29 01:27] LABS: Partial Thromboplastin Ratio 1.3; Partial Thromboplastin Time 35.8 Seconds (21.0-31.0)
[2022-12-29] MEDS: LACTATED RINGER'S 1,000 ML IV SCH ×2 (05:35→16:36)
[2022-12-29] MEDS: HYDROmorphone INJ 0.5 MG/0.5 ML SYR IV PRN (05:36)
[2022-12-29] MEDS: PIPERACILLIN/TAZOBACTAM 4.5 GM in DEXTROSE 5% 100 ML IV SCH ×3 (05:37→21:16)
[2022-12-29] MEDS: ACETAMINOPHEN 500 MG TAB PO PRN (06:22)
[2022-12-29] MEDS: traMADol HCL 50 MG TABLET PO PRN (06:57)
[2022-12-29 07:31] LABS: Basophils # (auto) 0.06 K/uL (0-0.2); Basophils % (auto) 0.6 %; Eosinophils # (auto) 0.09 K/uL (0-0.50); Eosinophils % (auto) 0.9 %; Hematocrit (blood only) 24.6 % (42.0-52.0); Hemoglobin 8.3 g/dl (14.0-18.0); Immature Granulocytes # (auto) 0.07 K/uL (0.01-0.20); Immature Granulocytes % (auto) 0.7 %; Lymphocytes # (auto) 1.37 K/uL (1.2-3.4); Lymphocytes % (auto) 13.4 %; Mean Corpuscular Hemoglobin 33.6 pg (25.0-34.0); Mean Corpuscular Hgb Conc 33.7 g/dL (32.0-36.0); Mean Corpuscular Volume 99.6 fL (80.0-100.0); Mean Platelet Volume 9.2 fL (9.4-12.4); Monocytes # (auto) 0.81 K/uL (0.11-0.59); Monocytes % (auto) 7.9 %; Neutrophils # (auto) 7.86 K/uL (1.40-6.50); Neutrophils % (auto) 76.5 %; Platelet Count 395 K/uL (130-400); RDW Coefficient of Variation 13.3 % (11.5-14.5); RDW Standard Deviation 48.6 fL (36.4-46.3); Red Blood Count 2.47 M/uL (4.70-6.10); White Blood Count 10.26 K/ul (4.8-10.8)
[2022-12-29 08:08] LABS: Partial Thromboplastin Ratio 1.5
[2022-12-29 08:31] LABS: Partial Thromboplastin Time 43.2 Seconds (21.0-31.0)
[2022-12-29 08:48] LABS: Albumin Globulin Ratio 0.9 (0.9-2); Albumin Level 2.8 gm/dl (3.4-5.0); Bilirubin,Total 0.3 mg/dl (0.2-1.0); Calcium 8.3 mg/dl (8.6-10.3); Est GFR (African American) 55.8 ml/min; Est GFR (Non-African American) 48.2 ml/min; Potassium 3.8 mmol/L (3.5-5.1); Total Protein 5.8 gm/dl (6.0-8.3)
[2022-12-29 08:49] LABS: Basophils # (auto) 0.05 K/uL (0-0.2); Basophils % (auto) 0.5 %; Eosinophils % (auto) 0.9 %; Hematocrit (blood only) 24.8 % (42.0-52.0); Hemoglobin 8.5 g/dl (14.0-18.0); Immature Granulocytes # (auto) 0.06 K/uL (0.01-0.20); Immature Granulocytes % (auto) 0.6 %; Lymphocytes # (auto) 1.43 K/uL (1.2-3.4); Lymphocytes % (auto) 13.4 %; Mean Corpuscular Hemoglobin 33.9 pg (25.0-34.0); Mean Corpuscular Hgb Conc 34.3 g/dL (32.0-36.0); Mean Corpuscular Volume 98.8 fL (80.0-100.0); Monocytes # (auto) 0.95 K/uL (0.11-0.59); Monocytes % (auto) 8.9 %; Neutrophils # (auto) 8.06 K/uL (1.40-6.50); Neutrophils % (auto) 75.7 %; Platelet Count 372 K/uL (130-400); RDW Coefficient of Variation 13.3 % (11.5-14.5); RDW Standard Deviation 48.6 fL (36.4-46.3); Red Blood Count 2.51 M/uL (4.70-6.10); White Blood Count 10.65 K/ul (4.8-10.8)
[2022-12-29] MEDS: LANTUS PER UNIT CHARGE SQ SCH ×2 (08:57→21:16)
[2022-12-29] MEDS: CLOPIDOGREL BISULFATE 75 MG TAB PO SCH (08:59)
[2022-12-29] MEDS: cilostazoL 100 MG TAB PO SCH ×2 (08:59→20:03)
[2022-12-29] MEDS: ASCORBIC ACID 500 MG TAB PO SCH (09:00)
[2022-12-29] MEDS ORDERED: hydrALAZINE HCL 20 MG/ML VIAL IV PRN (11:41)
[2022-12-29] MEDS: ACETAMINOPHEN 1,000 MG/100 ML VIAL IV PRN ×2 (11:55→20:09)
--- NOTE | 2022-12-29 14:48 | Consultation ---
Date of Consultation December 29, 2022 Assessment & Plan (1) History of femoropopliteal bypass: On usn the graft in his right leg is occluded. He has had his left gsv used as a conduit before. He isn't sure if this was done because the right vein was not useable. If he does not have any veins left to use then we can either use a cadaver vein or a prosthetic. If we use a prosthetic, I would like the wound to be as clean as possible to decrease the chance of seeding the graft. I would like to let the wound go over the weekend and see if there are any signs of healing next week. It would be best if we could get it to heal over a prolonged period of time vs doing another graft. If is does not have any signs of possible healing next week, then we will perform an arteriogram and plan on some sort of intervention either open or percutaneously if possible. Thank you very much for letting us participate in the care of this patient. History of Present Illness Reason for Consultation: Right foot infection and occluded right femoral to distal bypass. Attending Physician: Loco Boyer MD History of Present Illness This is a 67yo male who has had two previous bypasses to the right leg, one using vein from the left leg. Both these bypasses eventually failed. He was admitted now with an infected diabetic ulcer of the right foot. Allergies Allergy/AdvReac Type Severity Reaction Status Date / Time bee venom protein (honey bee) Allergy Severe Anaphylaxis Unverified 12/27/22 16:09 Home Medications Medication Instructions Recorded Confirmed Type acetaminophen 500 mg tablet 500 mg PO DAILY PRN Pain 12/27/22 12/27/22 History ascorbic acid (vitamin C) 500 mg 500 mg PO DAILY 12/27/22 12/27/22 History tablet atorvastatin 20 mg tablet 20 mg PO DAILY 12/27/22 12/27/22 History cholecalciferol (vitamin D3) 50 50 mcg PO DAILY 12/27/22 12/27/22 History mcg (2,000 unit) capsule (Vitamin D3) cilostazol 100 mg tablet 100 mg PO BID 12/27/22 12/27/22 History clindamycin HCl 300 mg capsule 300 mg PO Q6H 12/27/22 12/27/22 History clopidogrel 75 mg tablet 75 mg PO DAILY 12/27/22 12/27/22 History epinephrine 0.3 mg/0.3 mL 0.3 mg IM DIRECTED 12/27/22 12/27/22 History injection, auto-injector finerenone 10 mg tablet (Kerendia) 10 mg PO DAILY 12/27/22 12/27/22 History gabapentin 300 mg capsule 600 mg PO QID 12/27/22 12/27/22 History insulin aspart U-100 100 unit/mL 0 unit subcut DIRECTED 12/27/22 12/27/22 History (3 mL) subcutaneous pen (Novolog FlexPen U-100 Insulin aspart) insulin glargine 100 unit/mL (3 0 unit subcut QPM 12/27/22 12/27/22 History mL) subcutaneous pen (Lantus Solostar U-100 Insulin) lisinopril 40 mg tablet 40 mg PO HS 12/27/22 12/27/22 History multivitamin 1 tab PO DAILY 12/27/22 12/27/22 History pioglitazone 45 mg tablet 45 mg PO DAILY 12/27/22 12/27/22 History tramadol 50 mg tablet 50 mg PO BID PRN Pain 12/27/22 12/27/22 History vit C 250 mg-vit E 90 mg-zinc 40 1 cap PO DAILY 12/27/22 12/27/22 History mg-copper 1 qu-vszots-ergohp capsule (PreserVision AREDS-2) Patient History Medical History CKD (chronic kidney disease) PVD (peripheral vascular disease) T2DM (type 2 diabetes mellitus) TIA (transient ischemic attack) Surgical History History of femoropopliteal bypass Social History Smoking Status: Current every day smoker Tobacco Type: Cigarettes Second Hand Exposure: Yes; Do You Dip or Chew Tobacco: No; Tobacco Cessation Education Requested by Patient: No Hx Substance Use: No Preferred Language: Afghan Communication Ability: Effective Water Attendant Required: No Beliefs That Will Affect Care: None Current Living Situation: Alone Other Information That Helps Us Care for You: No Feels Safe at Home: Yes Safety Concerns: Feels Safe At This Time Assistive Devices: Cane, Walker and Wheelchair Review of Systems Review of Systems: All systems reviewed & are unremarkable except as noted in HPI & below Physical Exam Constitutional: WD/WN, vitals as above Respiratory: normal respiratory effort and + respiratory distress Cardiovascular: Rate/Rhythm: regular rate and regular rhythm Vessels: femoral pulses present and radial pulses present; + posterior tibial pulses abnormal and + dorsalis pedis pulses abnormal Extremities: + abnormal capillary refill Gastrointestinal (Abdomen): Inspection/Auscultation: abdomen normal to inspection; abdomen not distended Percussion/Palpation: abdomen soft Skin: dressing in place on right foot post surgical open wound Neurologic: CN's II-XI intact bilaterally and moves all extremities Results & Data Vital Signs (Past 12 Hours) Vital Signs Temp Pulse Resp BP BP Pulse Ox O2 Del Method 12/29/22 12:16 37.8 C H 12/29/22 12:39 38.2 C H 84 18 137/62 94 Room Air 12/29/22 11:33 38.6 C H 95 H 16 188/65 H 92 Room Air 12/29/22 08:58 36.9 C 12/29/22 06:53 37.6 C H 78 18 128/66 95 Room Air 12/29/22 03:38 37.3 C 85 18 140/54 L 96 Room Air
--- NOTE | 2022-12-29 17:17 | Hospitalist Progress Note ---
Date of Service December 29, 2022 Assessment & Plan (1) Diabetic foot infection: Plan: Diabetic foot infection w/ osteomyelitis of R foot [facility] vascular surgery records obtained 12/29, added to chart. With poorly controlled DM. Recently admitted to [facility] and discharged x2, most recently on doxycycline for MRSA with adjunct clindamycin added 12/26 by adzing and boring machine feeder on follow-up and recommended for ER evaluation Patient expresses frustration with [facility] and [facility], preferred to be managed at [facility] and to establish with vascular here Given DFI with history of MRSA was admitted on Dapto/Zosyn - Prior Vascular Surgeon- [facility] Tasia Ho [facility]. Automotive Technician Instructor Dr. Farzana Dwyer [facility] Continue broad coverage for DFI with worsening infection, continue Zosyn/Dapto at this time. Surgical cultures are pending, prelim positive for Staphylococcus species Cultures were taken at [facility] 12/26. Statin held while on Dapto Peripheral vascular disease With history of arterial bypass Partial records received. Additional records from [facility] pending. Per printed record review patient did have a US arterial Doppler 12/21 which showed mid distal right superficial femoral artery stenosis with intact but diminished waveforms distal to area of stenosis; 50% right VAMP MAKER and 50% proximal right superficial femoral artery stenoses were noted. - MRI shows right cuneiform and metatarsal osteomyelitis. Podiatry following, anticipate surgical revision -12/28/2022 arterial Doppler RLE: 1. A graft extending from the common femoral artery to the calf is occluded. 2. There are focally elevated velocities within the common femoral artery and the proximal superficial femoral artery indicating high-grade stenosis. 3. There is a long segment of thrombosis involving the mid to distal superficial femoral artery with distal reconstitution. 4. There is one-vessel runoff to the foot. The posterior tibial artery is patent 5. The mid to distal anterior tibial artery, the peroneal artery, and the dorsalis pedis artery are occluded. Based on updated Dopplers above vascular was consulted. Heparin drip initiated, no bolus low normal gram to minimize bleeding postoperatively. Seen by vascular 12/29. Continue current care; if graft to be pursued would need prosthetic and will follow for antibiotic treatment and healing first. Likely arteriogram next week. Appreciate recommendations Smoking cessation counseling provided on admission. Atorvastatin held while on daptomycin CKD 3 Admitting creatinine 1.67 Baseline creatinine around 1.3 Creatinine is downtrending, 1.5 on 12/29 Transaminitis Mild, with history of hyperlipidemia. Patient denies history of liver disease Reviewed [facility] vascular records in [facility] records, no mention of underlying liver disease/hepatitis/cirrhosis. Given persistent transaminitis will obtain ultrasound and acute hepatitis panel Type II DM, acute hyperglycemia Admitting BSG 317. Hold home pioglitazone Lactate normal Suspect elevation in the setting of infection Admitted on basal bolus based on TDD with pharmacy glycemic consult - CF 25/Ratio 9 Basal 15 BID (dose reduce to 10u BID while NPO) History of TIA No residual deficits Continued on Plavix 75 mg daily, patient also takes this due to his peripheral vascular disease DVT prophylaxis: SCDs, heparin subcu post-op Diet: N.p.o. pending surgical intervention 12/28 Disposition: Medical/surgical CODE STATUS: Full (2) T2DM (type 2 diabetes mellitus): (3) TIA (transient ischemic attack): (4) PVD (peripheral vascular disease): Admission and Anticipated Discharge Date Admission Date: December 27, 2022 Subjective Seen at the bedside. Patient reports that his foot had 2 episodes of bleeding this morning, which improved and stopped after the foot was wrapped. He has had no fever, chills, sweats although notes he is a little cold in the bedside. No chest pain/chest pressure. No abdominal pain. Has not yet discussed his care with vascular surgery at time of consultation, have received updated records from [facility] vascular surgery. Review of Systems Review of Systems: All systems reviewed & are unremarkable except as noted in Subjective Physical Exam Physical Exam: General: A&Ox3. NAD. Cooperative. HEENT: Atraumatic, normocephalic. Vision/hearing grossly intact Pulm: CTAB A&P. -wheezes, -rales, -rhonchi. Symmetrical chest rise. No increased work of breathing. No respiratory distress. Cardiac: RRR, -mrg. Radial pulses intact and symmetrical. Abdominal: Nontender, nondistended, soft. BS present. Extremities: Right foot initial presentation with photo in HPI. On reassessment limb is wrapped in a postsurgical dressing to cover open surgical wound. Sensation of soft touch in hands is intact bilaterally, moves upper extremities equally. Hip flexion is intact bilaterally Results & Data Results & Data Vital Signs (Past 12 Hours) Vital Signs Temp Pulse Resp BP BP Pulse Ox O2 Del Method 12/29/22 15:58 37.5 C 84 16 166/67 H 95 Room Air 12/29/22 12:16 37.8 C H 12/29/22 12:39 38.2 C H 84 18 137/62 94 Room Air 12/29/22 11:33 38.6 C H 95 H 16 188/65 H 92 Room Air 12/29/22 08:58 36.9 C 12/29/22 06:53 37.6 C H 78 18 128/66 95 Room Air PG Care Time/CCT Total # of Minutes Spent Total Time Spent with Patient: Total time spent is greater than 50% in coordination of care (as documented) at patient's floor/unit and/or counseling patient: Coding Level of Care Code 02030 SUB INP/OBS CARE 3/50MIN Diagnoses Diabetic foot infection E11.628; L08.9 T2DM (type 2 diabetes mellitus) E11.9 TIA (transient ischemic attack) G45.9 PVD (peripheral vascular disease) I73.9
[2022-12-29] MEDS: DAPTOmycin 350 MG in SYRINGE 0 ML IV SCH (20:00)
--- NOTE | 2022-12-29 22:52 | Orthopedic Progress Note ---
Date of Service December 29, 2022 Assessment & Plan (1) Osteomyelitis of right foot: Plan Patient seen, evaluated, and treated. Dressing change with out incident. Healthy bleeding noted. Plan to return to OR for delay primary closure on 01/01/23 Thank you for allowing me to participate in the care of this Patient. Admission and Anticipated Discharge Date Admission Date: December 27, 2022 Subjective Patient seen at bedside status post day #1 right foot surgery. Patient has no complaints and is resting comfortably. Review of Systems Review of Systems: All systems reviewed & are unremarkable except as noted in Subjective Physical Exam Constitutional: cooperative and comfortable Respiratory: normal respiratory effort Cardiovascular: Vessels: posterior tibial pulses present Musculoskeletal: Extremities: + foot abnormality Right (TMA) Results & Data Vital Signs (Past 12 Hours) Vital Signs Temp Pulse Resp BP BP Pulse Ox O2 Del Method 12/29/22 20:00 39.4 C H 78 16 123/78 96 Room Air 12/29/22 15:58 37.5 C 84 16 166/67 H 95 Room Air 12/29/22 12:16 37.8 C H 12/29/22 12:39 38.2 C H 84 18 137/62 94 Room Air 12/29/22 11:33 38.6 C H 95 H 16 188/65 H 92 Room Air Diagnostic Findings [address], [place] [address] / Director: Loco Mendez M.D. Clinical Laboratory Report Name: BUTCH DE LA ROSA Acct: [id number] Status: ADM IN : 1955 [facility] Date: 12/27/22 Age: 67 Sex: M Dis Date: Loc: Medical/Surgical/Ortho [address] [place] [address]/Bed: [facility] Spec: [id number] Collected: 12/28/22 Received: 12/28/[address]: Gaston Novak, DPM, MS Copy To: Loco Boyer MD Source: Foot,Right OV Order: Ordered: Aer/Shandra Cult/Sm Comments: Comment 1. Deep swab Procedure Result Verified Site Gram Stain Final 12/29/22 Gram Stain Result Rare Epithelial Cells No WBCs Seen Rare Gram Positive Cocci Aero/Shandra Cult Preliminary 12/29/22-1321 Organism 1 Staphylococcus species Quantity Moderate Sens Sensitivities to Follow
[2022-12-30] MEDS: HEPARIN SODIUM/DEXTROSE 25,000 UNITS/500 ML BAG IV SCH (00:48)
[2022-12-30] MEDS: INSULIN ASPART PER UNIT CHARGE SC SCH ×6 (00:48→20:36)
[2022-12-30] MEDS: LACTATED RINGER'S 1,000 ML IV SCH ×3 (00:48→20:36)
[2022-12-30] MEDS: ACETAMINOPHEN 500 MG TAB PO PRN (00:48)
[2022-12-30] MEDS: PIPERACILLIN/TAZOBACTAM 4.5 GM in DEXTROSE 5% 100 ML IV SCH ×3 (05:27→20:37)
[2022-12-30] MEDS: ACETAMINOPHEN 1,000 MG/100 ML VIAL IV PRN (05:28)
--- NOTE | 2022-12-30 06:59 | Ultrasound Report ---
ABDOMINAL ULTRASOUND, RIGHT UPPER QUADRANT HISTORY: Elevated LFTs transaminitis. COMPARISON: None. FINDINGS: Pancreas: The pancreas demonstrates a normal echotexture. Liver: Unremarkable. Gallbladder: No gallbladder wall thickening. No gallstones. CBD: 0.4 cm. Right kidney: No hydronephrosis. IMPRESSION: No significant abnormality identified within the right upper quadrant. ACT 112: Negative or not required by law. Electronically signed by: Maicol Bullard M.D. 12/30/2022 6:58 AM
[2022-12-30] MEDS: traMADol HCL 50 MG TABLET PO PRN ×3 (07:04→19:38)
[2022-12-30 08:15] LABS: Basophils # (auto) 0.02 K/uL (0-0.2); Basophils % (auto) 0.2 %; Eosinophils # (auto) 0.01 K/uL (0-0.50); Eosinophils % (auto) 0.1 %; Hematocrit (blood only) 21.7 % (42.0-52.0); Hemoglobin 7.7 g/dl (14.0-18.0); Immature Granulocytes # (auto) 0.06 K/uL (0.01-0.20); Immature Granulocytes % (auto) 0.5 %; Lymphocytes # (auto) 1.48 K/uL (1.2-3.4); Mean Corpuscular Hemoglobin 33.9 pg (25.0-34.0); Mean Corpuscular Hgb Conc 35.5 g/dL (32.0-36.0); Mean Corpuscular Volume 95.6 fL (80.0-100.0); Monocytes # (auto) 1.29 K/uL (0.11-0.59); Monocytes % (auto) 11.3 %; Neutrophils # (auto) 8.52 K/uL (1.40-6.50); Neutrophils % (auto) 74.9 %; Platelet Count 363 K/uL (130-400); RDW Coefficient of Variation 13.2 % (11.5-14.5); RDW Standard Deviation 45.8 fL (36.4-46.3); Red Blood Count 2.27 M/uL (4.70-6.10); White Blood Count 11.38 K/ul (4.8-10.8)
[2022-12-30] MEDS: GABAPENTIN 600 MG TAB PO SCH ×4 (08:23→19:36)
[2022-12-30] MEDS: ASCORBIC ACID 500 MG TAB PO SCH (08:23)
[2022-12-30] MEDS: CLOPIDOGREL BISULFATE 75 MG TAB PO SCH (08:23)
[2022-12-30] MEDS: LANTUS PER UNIT CHARGE SQ SCH ×2 (08:24→20:36)
[2022-12-30] MEDS: cilostazoL 100 MG TAB PO SCH ×2 (08:24→19:36)
[2022-12-30 08:29] LABS: Albumin Globulin Ratio 0.9 (0.9-2); Albumin Level 2.8 gm/dl (3.4-5.0); BUN Creatinine Ratio 12.3 (10-20); Bilirubin,Total 0.3 mg/dl (0.2-1.0); C Reactive Protein 19.22 mg/dl (0-0.5); Est GFR (African American) 50.5 ml/min; Est GFR (Non-African American) 43.6 ml/min; Globulin 3.1 gm/dl (2.5-4.0); Potassium 3.5 mmol/L (3.5-5.1); Total Protein 5.9 gm/dl (6.0-8.3)
[2022-12-30 08:50] LABS: Partial Thromboplastin Ratio 1.8
[2022-12-30 09:01] LABS: RBC Morphology Unremarkable
[2022-12-30 09:18] LABS: Partial Thromboplastin Time 49.8 Seconds (21.0-31.0)
[2022-12-30] MEDS: HYDROmorphone INJ 0.5 MG/0.5 ML SYR IV PRN (09:38)
--- NOTE | 2022-12-30 10:01 | Surgery Progress Note ---
Date of Service December 30, 2022 Assessment & Plan (1) History of femoropopliteal bypass: Plan: On US the bypass graft in his right leg is occluded. He has had his left gsv used as a conduit in the RLE. Pt has very limited options for successful revascularization, as evidenced by 2 prior occluded bypasses. If we use a prosthetic, we would like the wound to be as clean as possible to decrease the chance of seeding the graft. We would like to let the wound go over the weekend and see if there are any signs of healing next week. It would be best if we could get it to heal over a prolonged period of time vs doing another bypass. Would not recommend closing the wound if there is any possibility of active infection, d/t risk of worsening infection, increasing tissue loss, and limited revascularization options. If the wound does not have any signs of possible healing next week, then we will perform an arteriogram and plan on some sort of intervention either open or percutaneously. Thank you very much for letting us participate in the care of this patient. Admission and Anticipated Discharge Date Admission Date: December 27, 2022 Subjective 67 yo m with hx of occluded fem-pop bp RLE and severe infection R foot, seen in f/u today. Pt states no new complaints. Underwent RLE TMA by Dr Novak 2 days ago. Wound cultures positive for MRSA. Review of Systems Review of Systems: All systems reviewed & are unremarkable except as noted in HPI & below Physical Exam Constitutional: WD/WN, vitals as above Cardiovascular: Vessels: femoral pulses present and radial pulses present; + posterior tibial pulses abnormal and + dorsalis pedis pulses abnormal Extremities: + abnormal capillary refill Results & Data Vital Signs (Past 12 Hours) Vital Signs Temp Pulse Resp BP Pulse Ox O2 Del Method 12/30/22 09:11 37.3 C 12/30/22 07:06 Room Air 12/30/22 06:56 38.1 C H 90 18 158/68 H 93 Room Air 12/30/22 05:34 39.1 C H 12/30/22 01:45 37.4 C 12/30/22 00:45 38.2 C H
[2022-12-30] MEDS: ADVANCED PROBIOTIC 1250 MG CAPSULE PO SCH (14:03)
[2022-12-30] MEDS: ACETAMINOPHEN 1,000 MG/100 ML VIAL IV SCH ×2 (14:07→21:31)
[2022-12-30 18:17] LABS: Hematocrit (blood only) 21.4 % (42.0-52.0); Hemoglobin 7.5 g/dl (14.0-18.0)
[2022-12-30] MEDS ORDERED: IBUPROFEN 600 MG TAB PO ONE (19:30)
[2022-12-30] MEDS: DAPTOmycin 550 MG in SYRINGE 0 ML IV SCH (19:36)
--- NOTE | 2022-12-30 22:14 | Orthopedic Progress Note ---
Date of Service December 30, 2022 Assessment & Plan (1) Osteomyelitis of right foot: Plan: Patient seen, evaluated, and treated. Appreciate Vascular consult Reviewed wound culture and sensitivities (+) MRSA WBC remains elevated Dressing change with out incident. Wound margins appear darken and mild dusky.. Will postpone wound reapproximation. Thank you for allowing me to participate in the care of this Patient. Admission and Anticipated Discharge Date Admission Date: December 27, 2022 Subjective Patient seen at bedside resting comfortably. He notes continued right foot and ankle pain. Review of Systems Review of Systems: All systems reviewed & are unremarkable except as noted in Subjective Physical Exam Constitutional: cooperative and comfortable Neck: trachea midline Respiratory: normal respiratory effort Cardiovascular: Vessels: posterior tibial pulses present and dorsalis pedis pulses present Musculoskeletal: Extremities: + foot abnormality Skin: + ulcer (Right foot and ankle Eschar with adjacent erythema) and + erythema (Right foot) Neurologic: moves all extremities (Absent epicritic sensation) Psychiatric: Orientation: alert and oriented x 3 Results & Data Vital Signs (Past 12 Hours) Vital Signs Temp Pulse Resp BP Pulse Ox O2 Del Method 12/30/22 22:00 38.4 C H 12/30/22 20:49 Room Air 12/30/22 19:13 38.3 C H 82 16 166/73 H Room Air 12/30/22 14:48 36.8 C 88 18 135/59 L 92 Room Air 12/30/22 14:06 38.1 C H Diagnostic Findings [address], [place] [address] / Director: Loco Mendez M.D. Clinical Laboratory Report Name: BUTCH DE LA ROSA Acct: [id number] Status: ADM IN : 1955 [facility] Date: 12/27/22 Age: 67 Sex: M Dis Date: Loc: Medical/Surgical/Ortho [facility]/Bed: W350-2 Spec: [id number] Collected: 12/28/22 Received: 12/28/[address]: Gaston Novak, DPM, MS Copy To: Loco Boyer MD Source: Foot,Right OV Order: Ordered: Aer/Shandra Cult/Sm Comments: Comment 1. Deep swab Procedure Result Verified Site Gram Stain Final 12/29/22 Gram Stain Result Rare Epithelial Cells No WBCs Seen Rare Gram Positive Cocci Aero/Shandra Cult Preliminary 12/30/22 Organism 1 Staph aureus MRSA Quantity Moderate Sens Sensitivities to Follow MRSA RX M.I.C. --- --------- Clindamycin R >4 Daptomycin S <=0.5 Erythromycin R >4 Oxacillin R >2 Rifampin S <=1 Tetracycline S <=4 Trimeth/Sulfa S <=0.5/9.5 Vancomycin S 2 S = SENSITIVE I = INTERMEDIATE R = RESISTANT Name: BUTCH DE LA ROSA : 1955 PAGE 1 Printed: 12/30/22 [id number] END OF REPORT
--- NOTE | 2022-12-30 22:14 | Hospitalist Progress Note ---
Date of Service December 30, 2022 Assessment & Plan (1) Diabetic foot infection: Plan: Diabetic foot infection w/ osteomyelitis of R foot [facility] vascular surgery records obtained 12/29, added to chart. With poorly controlled DM. Recently admitted to [facility] and discharged x2, most recently on doxycycline for MRSA with adjunct clindamycin added 12/26 by cement contractor on follow-up and recommended for ER evaluation Patient expresses frustration with [facility] and [facility], preferred to be managed at [facility] and to establish with vascular here Given DFI with history of MRSA was admitted on Dapto/Zosyn - Prior Vascular Surgeon- [facility] Tasia Ho [facility]. Roller Die Cutting Machine Operator Dr. Farzana Dwyer [facility] Continue broad coverage for DFI with worsening infection, continue Zosyn/Dapto at this time. Surgical cultures are pending, prelim positive for Staphylococcus species Cultures were taken at [facility] 12/26. Statin held while on Dapto Peripheral vascular disease With history of arterial bypass Partial records received. Additional records from [facility] pending. Per printed record review patient did have a US arterial Doppler 12/21 which showed mid distal right superficial femoral artery stenosis with intact but diminished waveforms distal to area of stenosis; 50% right MULTICRAFT OPERATOR and 50% proximal right superficial femoral artery stenoses were noted. - MRI shows right cuneiform and metatarsal osteomyelitis. Podiatry following, anticipate surgical revision Acute DVT -12/28/2022 arterial Doppler RLE: 1. A graft extending from the common femoral artery to the calf is occluded. 2. There are focally elevated velocities within the common femoral artery and the proximal superficial femoral artery indicating high-grade stenosis. 3. There is a long segment of thrombosis involving the mid to distal superficial femoral artery with distal reconstitution. 4. There is one-vessel runoff to the foot. The posterior tibial artery is patent 5. The mid to distal anterior tibial artery, the peroneal artery, and the dorsalis pedis artery are occluded. Based on updated Dopplers above vascular was consulted. Heparin drip initiated, no bolus low normal gram to minimize bleeding postoperatively. Seen by vascular 12/29. Continue current care; if graft to be pursued would need prosthetic and will follow for antibiotic treatment and healing first. Likely arteriogram next week. Appreciate recommendations Smoking cessation counseling provided on admission. Atorvastatin held while on daptomycin Hemoglobin has been down trending, will continue to closely monitor. CKD 3 Admitting creatinine 1.67 Baseline creatinine around 1.3 Creatinine is downtrending, 1.5 on 12/29 Transaminitis Mild, with history of hyperlipidemia. Patient denies history of liver disease Reviewed [facility] vascular records in [facility] records, no mention of underlying liver disease/hepatitis/cirrhosis. Given persistent transaminitis will obtain ultrasound and acute hepatitis panel Type II DM, acute hyperglycemia Admitting BSG 317. Hold home pioglitazone Lactate normal Suspect elevation in the setting of infection Admitted on basal bolus based on TDD with pharmacy glycemic consult - CF 25/Ratio 9 Basal 15 BID (dose reduce to 10u BID while NPO) History of TIA No residual deficits Continued on Plavix 75 mg daily, patient also takes this due to his peripheral vascular disease DVT prophylaxis: SCDs, heparin subcu post-op Diet: N.p.o. pending surgical intervention 12/28 Disposition: Medical/surgical CODE STATUS: Full (2) T2DM (type 2 diabetes mellitus): (3) TIA (transient ischemic attack): (4) PVD (peripheral vascular disease): Admission and Anticipated Discharge Date Admission Date: December 27, 2022 Subjective 67 yo male reports no new symptoms. Patient states he has not had dark stools or blood in stools. Review of Systems Review of Systems: All systems reviewed & are unremarkable except as noted in HPI & below Physical Exam Physical Exam: General: A&Ox3. NAD. Cooperative. HEENT: Atraumatic, normocephalic. Vision/hearing grossly intact Pulm: CTAB A&P. -wheezes, -rales, -rhonchi. Symmetrical chest rise. No increased work of breathing. No respiratory distress. Cardiac: RRR, -mrg. Radial pulses intact and symmetrical. Abdominal: Nontender, nondistended, soft. BS present. Extremities: Rlimb is wrapped in a postsurgical dressing to cover open surgical wound. Sensation of soft touch in hands is intact bilaterally, moves upper extremities equally. Hip flexion is intact bilaterally Results & Data Results & Data Vital Signs (Past 12 Hours) Vital Signs Temp Pulse Resp BP Pulse Ox O2 Del Method 12/30/22 22:00 38.4 C H 12/30/22 20:49 Room Air 12/30/22 19:13 38.3 C H 82 16 166/73 H Room Air 12/30/22 14:48 36.8 C 88 18 135/59 L 92 Room Air 12/30/22 14:06 38.1 C H PG Care Time/CCT Total # of Minutes Spent Total Time Spent with Patient: Total time spent is greater than 50% in coordination of care (as documented) at patient's floor/unit and/or counseling patient: Coding Level of Care Code 44407 SUB INP/OBS CARE 3/50MIN Diagnoses Diabetic foot infection E11.628; L08.9 T2DM (type 2 diabetes mellitus) E11.9 TIA (transient ischemic attack) G45.9 PVD (peripheral vascular disease) I73.9 Time Spent (min) 50
[2022-12-30] MEDS ORDERED: Nursing to Pharmacy Communication SCH (23:30)
[2022-12-31] MEDS: HEPARIN SODIUM/DEXTROSE 25,000 UNITS/500 ML BAG IV SCH (00:14)
[2022-12-31] MEDS: PIPERACILLIN/TAZOBACTAM 4.5 GM in DEXTROSE 5% 100 ML IV SCH ×3 (04:05→20:14)
[2022-12-31] MEDS ORDERED: traMADol HCL 50 MG TABLET PO STA (04:17)
[2022-12-31] MEDS: ACETAMINOPHEN 1,000 MG/100 ML VIAL IV SCH ×3 (05:38→20:56)
[2022-12-31] MEDS: LACTATED RINGER'S 1,000 ML IV SCH ×2 (05:39→16:33)
[2022-12-31 07:45] LABS: Hematocrit (blood only) 20.6 % (42.0-52.0); Mean Corpuscular Hemoglobin 33.5 pg (25.0-34.0); Mean Corpuscular Volume 98.6 fL (80.0-100.0); Mean Platelet Volume 9.1 fL (9.4-12.4); Platelet Count 322 K/uL (130-400); RDW Coefficient of Variation 13.2 % (11.5-14.5); RDW Standard Deviation 47.5 fL (36.4-46.3); Red Blood Count 2.09 M/uL (4.70-6.10)
[2022-12-31 07:48] LABS: Anisocytosis Present; Basophils # (auto) 0.02 K/uL (0-0.2); Basophils % (auto) 0.2 %; Eosinophils # (auto) 0.07 K/uL (0-0.50); Eosinophils % (auto) 0.7 %; Immature Granulocytes # (auto) 0.06 K/uL (0.01-0.20); Immature Granulocytes % (auto) 0.6 %; Lymphocytes # (auto) 2.16 K/uL (1.2-3.4); Monocytes # (auto) 0.88 K/uL (0.11-0.59); Monocytes % (auto) 9.4 %; Neutrophils # (auto) 6.21 K/uL (1.40-6.50); Neutrophils % (auto) 66.1 %
[2022-12-31 07:58] LABS: Partial Thromboplastin Time 83.4 Seconds (21.0-31.0)
--- NOTE | 2022-12-31 08:34 | Communication Note ---
Date of Service: December 31, 2022 Ortho note states edges of wound to be dusky and darkened. Will plan on arteriography on Monday to evaluate for a redo bypass for limb salvage. I have discussed the risks options and benefits of the procedure with the patient. The patient understands the risks options and benefits and agrees to the procedure.
[2022-12-31] MEDS ORDERED: FINERENONE PO SCH (09:00)
[2022-12-31] MEDS: ASCORBIC ACID 500 MG TAB PO SCH (09:33)
[2022-12-31] MEDS: ADVANCED PROBIOTIC 1250 MG CAPSULE PO SCH (09:34)
[2022-12-31] MEDS: cilostazoL 100 MG TAB PO SCH ×2 (09:34→20:14)
[2022-12-31] MEDS: CLOPIDOGREL BISULFATE 75 MG TAB PO SCH (09:34)
[2022-12-31] MEDS: GABAPENTIN 600 MG TAB PO SCH ×4 (09:34→20:14)
[2022-12-31] MEDS: LANTUS PER UNIT CHARGE SQ SCH ×2 (09:37→20:55)
[2022-12-31] MEDS: INSULIN ASPART PER UNIT CHARGE SC SCH ×4 (09:38→20:55)
[2022-12-31] MEDS: traMADol HCL 50 MG TABLET PO PRN ×2 (10:33→16:26)
[2022-12-31] MEDS: PANTOprazole 40 MG in DEXTROSE 5% 100 ML IV SCH ×3 (11:13→21:39)
[2022-12-31 11:21] LABS: HBSAG NON-REACTIVE (NON-REACTIVE); Hepatitis A Antibody IgM NON-REACTIVE (NON-REACTIVE); Hepatitis B Core Antibody IgM NON-REACTIVE (NON-REACTIVE)
--- NOTE | 2022-12-31 11:31 | Gastrointestinal Consultation ---
Date of Consultation December 31, 2022 Assessment & Plan (1) Melena: Patient admitted with complications related to foot ulceration. We were consulted for melena, given the complex medical history and anticoagulation peptic ulcer disease would certainly be on her differential. Unfortunately the patient did have breakfast this morning we will therefore plan for endoscopy on Monday this time would recommend the patient be n.p.o., begin a Protonix drip and hold all anticoagulation. Recommendations N.p.o. Protonix drip Hold anticoagulation and nonsteroidals Upper endoscopy scheduled for Monday Please call with any questions or concerns History of Present Illness Reason for Consultation: Melena Requesting Physician: Dr. Grove Attending Physician: Perfecto Grove History of Present Illness The patient is a 67-year-old male with multiple medical problems to include diabetes and a history of smoking who was admitted for complications related to a foot ulcer. The patient is presently listed for a foot surgery tomorrow and was on a heparin drip. This morning he was found to have a large amount of melena associated with a drop in his hemoglobin and hematocrit. The patient denies having gross blood per rectum hematemesis or coffee-ground emesis. He also denies having abdominal discomfort. The patient's endoscopic history is notable for a recent colonoscopy performed at [facility]. The patient believes that he had a colon polyp at that time and is not aware of having diverticulosis. Allergies Allergy/AdvReac Type Severity Reaction Status Date / Time bee venom protein (honey bee) Allergy Severe Anaphylaxis Unverified 12/27/22 16:09 Home Medications Medication Instructions Recorded Confirmed Type acetaminophen 500 mg tablet 500 mg PO DAILY PRN Pain 12/27/22 12/27/22 History ascorbic acid (vitamin C) 500 mg 500 mg PO DAILY 12/27/22 12/27/22 History tablet atorvastatin 20 mg tablet 20 mg PO DAILY 12/27/22 12/27/22 History cholecalciferol (vitamin D3) 50 50 mcg PO DAILY 12/27/22 12/27/22 History mcg (2,000 unit) capsule (Vitamin D3) cilostazol 100 mg tablet 100 mg PO BID 12/27/22 12/27/22 History clindamycin HCl 300 mg capsule 300 mg PO Q6H 12/27/22 12/27/22 History clopidogrel 75 mg tablet 75 mg PO DAILY 12/27/22 12/27/22 History epinephrine 0.3 mg/0.3 mL 0.3 mg IM DIRECTED 12/27/22 12/27/22 History injection, auto-injector finerenone 10 mg tablet (Kerendia) 10 mg PO DAILY 12/27/22 12/27/22 History gabapentin 300 mg capsule 600 mg PO QID 12/27/22 12/27/22 History insulin aspart U-100 100 unit/mL 0 unit subcut DIRECTED 12/27/22 12/27/22 History (3 mL) subcutaneous pen (Novolog FlexPen U-100 Insulin aspart) insulin glargine 100 unit/mL (3 0 unit subcut QPM 12/27/22 12/27/22 History mL) subcutaneous pen (Lantus Solostar U-100 Insulin) lisinopril 40 mg tablet 40 mg PO HS 12/27/22 12/27/22 History multivitamin 1 tab PO DAILY 12/27/22 12/27/22 History pioglitazone 45 mg tablet 45 mg PO DAILY 12/27/22 12/27/22 History tramadol 50 mg tablet 50 mg PO BID PRN Pain 12/27/22 12/27/22 History vit C 250 mg-vit E 90 mg-zinc 40 1 cap PO DAILY 12/27/22 12/27/22 History mg-copper 1 [id number] capsule (PreserVision AREDS-2) Patient History Medical History CKD (chronic kidney disease) PVD (peripheral vascular disease) T2DM (type 2 diabetes mellitus) TIA (transient ischemic attack) Surgical History History of femoropopliteal bypass Social History Smoking Status: Current every day smoker Tobacco Type: Cigarettes Second Hand Exposure: Yes; Do You Dip or Chew Tobacco: No; Tobacco Cessation Education Requested by Patient: No Hx Substance Use: No Preferred Language: Korean Communication Ability: Effective Director Merit System Required: No Beliefs That Will Affect Care: None Current Living Situation: Alone Other Information That Helps Us Care for You: No Feels Safe at Home: Yes Safety Concerns: Feels Safe At This Time Assistive Devices: Cane, Walker and Wheelchair Review of Systems Constitutional: + malaise; no sweats and no weight loss Eyes: no diplopia Ear, Nose, Mouth, Throat: no ear pain Respiratory: no hemoptysis Cardiovascular: no chest pain with activity and no dyspnea at rest Gastrointestinal: + melena; no bloating, no nausea, no coffee ground emesis and no hematemesis Genitourinary: no hematuria Neurologic: no falls Hematologic / Lymphatic: + coagulopathy Physical Exam Eyes: PERRL, conjunctivae normal, anicteric sclerae ENMT: external ear and nose normal, oropharynx normal Neck: trachea midline, no thyromegaly Respiratory: Auscultation: + diminished lung sounds; no crackles, no rales and no wheezes Cardiovascular: Heart Sounds: + murmur Gastrointestinal (Abdomen): Inspection/Auscultation: normal bowel sounds; abdomen not distended Percussion/Palpation: abdomen soft; abdomen nontender and no guarding Results & Data Vital Signs (Past 12 Hours) Vital Signs Temp Pulse Resp BP Pulse Ox O2 Del Method 12/31/22 07:32 36.8 C 63 18 134/52 L 95 Room Air 12/31/22 04:30 36.8 C 12/31/22 00:16 36.8 C Laboratory Results Laboratory Results - last 24 hr 12/30/22 12/30/22 12/30/22 07:33 11:54 16:47 WBC RBC Hgb Hct MCV MCH MCHC RDW Std Deviation RDW Coeff of Calli Plt Count MPV Immature Gran % (Auto) Neut % (Auto) Lymph % (Auto) [place] % (Auto) Eos % (Auto) Baso % (Auto) Neut # (Auto) Lymph # (Auto) [place] # (Auto) Eos # (Auto) Baso # (Auto) Immature Gran # (Auto) Anisocytosis APTT PTT Ratio POC Glucose 249 H 173 H Stl C. diff Tox B Gene Hepatitis A IgM Ab NON-REACTIVE Hep Bs Antigen NON-REACTIVE Hep Bs Ag Confirmation TNP Hep B Core IgM Ab NON-REACTIVE Hepatitis C Ab (EIA) NON-REACTIVE 12/30/22 12/30/22 12/30/22 17:51 20:30 Unknown WBC RBC Hgb 7.5 L Hct 21.4 L MCV MCH MCHC RDW Std Deviation RDW Coeff of Calli Plt Count MPV Immature Gran % (Auto) Neut % (Auto) Lymph % (Auto) [place] % (Auto) Eos % (Auto) Baso % (Auto) Neut # (Auto) Lymph # (Auto) [place] # (Auto) Eos # (Auto) Baso # (Auto) Immature Gran # (Auto) Anisocytosis APTT PTT Ratio POC Glucose 204 H Stl C. diff Tox B Gene Negative Cdiff Gene Hepatitis A IgM Ab Hep Bs Antigen Hep Bs Ag Confirmation Hep B Core IgM Ab Hepatitis C Ab (EIA) 12/31/22 12/31/22 12/31/22 06:44 06:44 08:11 WBC 9.40 RBC 2.09 L Hgb 7.0 L Hct 20.6 L* MCV 98.6 MCH 33.5 MCHC 34.0 RDW Std Deviation 47.5 H RDW Coeff of Calli 13.2 Plt Count 322 MPV 9.1 L Immature Gran % (Auto) 0.6 Neut % (Auto) 66.1 Lymph % (Auto) 23.0 [place] % (Auto) 9.4 Eos % (Auto) 0.7 Baso % (Auto) 0.2 Neut # (Auto) 6.21 Lymph # (Auto) 2.16 [place] # (Auto) 0.88 H Eos # (Auto) 0.07 Baso # (Auto) 0.02 Immature Gran # (Auto) 0.06 Anisocytosis Present APTT 83.4 H* PTT Ratio 3.0 POC Glucose 177 H Stl C. diff Tox B Gene Hepatitis A IgM Ab Hep Bs Antigen Hep Bs Ag Confirmation Hep B Core IgM Ab Hepatitis C Ab (EIA)
[2022-12-31 12:49] LABS: Hematocrit (blood only) 22.3 % (42.0-52.0); Hemoglobin 7.7 g/dl (14.0-18.0)
[2022-12-31] MEDS ORDERED: PHARMACY GLYCEMIC MGMT CONSULT PRN (14:26)
[2022-12-31 14:38] LABS: Partial Thromboplastin Ratio 1.3; Partial Thromboplastin Time 37.9 Seconds (21.0-31.0)
--- NOTE | 2022-12-31 16:35 | Anesthesiology Consultation ---
Date of Service December 31, 2022 Assessment & Plan Chart Review Chart Review: Acceptable Risk for Surgery and Patient NOT seen in Pre Admission Testing Consults Requested none ASA [id number] Proposed Anesthesia Anesthesia Type: General History Surgery Operation Date: 12/28/22 09:40 Proposed Procedures p Right Foot Transmetatarsal Amputation - Gaston Novak DPM, Operation Date: 01/01/23 08:55 Proposed Procedures p Right Foot Wash Out Delayed Primary Closure - Gaston Novak DPM, MS Height/Weight Height: 6 ft 1 in Weight: 103.2 kg Allergies Allergy/AdvReac Type Severity Reaction Status Date / Time bee venom protein (honey bee) Allergy Severe Anaphylaxis Unverified 12/27/22 16:09 Medications Home Medications Medication Instructions Recorded Confirmed Last Taken acetaminophen 500 mg tablet 500 mg PO DAILY PRN Pain 12/27/22 12/27/22 Unknown ascorbic acid (vitamin C) 500 mg 500 mg PO DAILY 12/27/22 12/27/22 Unknown tablet atorvastatin 20 mg tablet 20 mg PO DAILY 12/27/22 12/27/22 Unknown cholecalciferol (vitamin D3) 50 50 mcg PO DAILY 12/27/22 12/27/22 Unknown mcg (2,000 unit) capsule (Vitamin D3) cilostazol 100 mg tablet 100 mg PO BID 12/27/22 12/27/22 Unknown clindamycin HCl 300 mg capsule 300 mg PO Q6H 12/27/22 12/27/22 Unknown clopidogrel 75 mg tablet 75 mg PO DAILY 12/27/22 12/27/22 Unknown epinephrine 0.3 mg/0.3 mL 0.3 mg IM DIRECTED 12/27/22 12/27/22 Unknown injection, auto-injector finerenone 10 mg tablet (Kerendia) 10 mg PO DAILY 12/27/22 12/27/22 Unknown gabapentin 300 mg capsule 600 mg PO QID 12/27/22 12/27/22 Unknown insulin aspart U-100 100 unit/mL 0 unit subcut DIRECTED 12/27/22 12/27/22 Unknown (3 mL) subcutaneous pen (Novolog FlexPen U-100 Insulin aspart) insulin glargine 100 unit/mL (3 0 unit subcut QPM 12/27/22 12/27/22 Unknown mL) subcutaneous pen (Lantus Solostar U-100 Insulin) lisinopril 40 mg tablet 40 mg PO HS 12/27/22 12/27/22 Unknown multivitamin 1 tab PO DAILY 12/27/22 12/27/22 Unknown pioglitazone 45 mg tablet 45 mg PO DAILY 12/27/22 12/27/22 Unknown tramadol 50 mg tablet 50 mg PO BID PRN Pain 12/27/22 12/27/22 Unknown vit C 250 mg-vit E 90 mg-zinc 40 1 cap PO DAILY 12/27/22 12/27/22 Unknown mg-copper 1 [id number] capsule (PreserVision AREDS-2) Active Medications Generic Name Dose Route Start Last Admin Trade Name Freq PRN Reason Stop Dose Admin Acetaminophen 500 mg 12/27/22 19:58 12/30/22 00:48 Acetaminophen 500 Mg Tab PO 01/26/23 19:57 500 mg DAILY PRN Administration Pain Ascorbic Acid 500 mg 12/28/22 09:00 12/31/22 09:33 Ascorbic Acid 500 Mg Tab PO 01/27/23 08:59 500 mg DAILY ZINA Administration Cilostazol 100 mg 12/27/22 21:00 12/31/22 09:34 Cilostazol 100 Mg Tab PO 01/26/23 20:59 100 mg BID ZINA Administration Clopidogrel Bisulfate 75 mg 12/28/22 09:00 12/31/22 09:34 Clopidogrel Bisulfate 75 Mg Tab PO 01/27/23 08:59 75 mg DAILY ZINA Administration Gabapentin 600 mg 12/27/22 21:00 12/31/22 13:21 Gabapentin 600 Mg Tab PO 01/26/23 20:59 600 mg QID ZINA Administration Hydromorphone HCl 0.5 mg 12/28/22 10:57 12/30/22 09:38 Hydromorphone Inj 0.5 Mg/0.5 Ml Syr IV 01/11/23 10:56 0.5 mg Q4H PRN Administration Breakthrough Pain Piperacillin Sod/Tazobactam 120 mls @ 30 mls/hr 12/27/22 21:00 12/31/22 13:54 Sod 4.5 gm/ Dextrose IV 01/03/23 20:59 30 mls/hr Q8H ZINA Administration Protocol Acetaminophen 1,000 mg in 100 mls @ 400 mls/hr 12/30/22 14:00 12/31/22 13:59 Ofirmev IV 01/02/23 13:59 Infused Q8H ZINA Infusion Daptomycin 550 mg/ Syringe 11 mls @ 5.5 mls/min 12/30/22 20:00 12/30/22 19:36 IV 01/04/23 19:59 5.5 mls/min Q24H ZINA Administration Protocol Pantoprazole Sodium 40 mg/ 100 mls @ 20 mls/hr 12/31/22 10:15 12/31/22 16:19 Dextrose IV 01/30/23 10:14 8 mg/hr Q5H ZINA 20 mls/hr Administration 8 MG/HR Lactated Ringer's 1,000 mls @ 100 mls/hr 12/31/22 11:30 12/31/22 16:33 Lr IV 01/30/23 11:29 100 mls/hr .Q10H ZINA Administration Lactobacillus Acidophilus 2 cap 12/30/22 13:15 12/31/22 09:34 Advanced Probiotic 1250 Mg Capsule PO 01/29/23 13:14 2 cap DAILY ZINA Administration Tramadol HCl 50 mg 12/27/22 19:58 12/31/22 16:26 Tramadol Hcl 50 Mg Tablet PO 01/26/23 19:57 50 mg BID PRN Administration Pain NPO Date Last Intake of Fluids: 12/31/22 Time Last Intake of Fluids: 08:45 Last Intake of Fluids Comment: sips Date Last Intake of Solids: 12/31/22 Time Last Intake of Solids: 08:45 Past Medical History Medical History CKD (chronic kidney disease) PVD (peripheral vascular disease) T2DM (type 2 diabetes mellitus) TIA (transient ischemic attack) Exercise / Class Metabolic Activity III < 4 Walking/Shop/Light housework Past Surgical History Surgical History History of femoropopliteal bypass Past Anesthesia History No Hx of Anesthesia Complications and No Family Hx of Anesthesia Complications History of PONV No Hx of PONV and No Hx of Motion Sickness Social History Smoking Status: Current every day smoker tobacco type: cigarettes Do You Dip or Chew Tobacco: No Hx Substance Use: No substance use type: does not use Physical Exam Vital Signs Last Vital Signs Temp 37.0 C 12/31/22 15:49 Pulse 74 12/31/22 15:49 Resp 18 12/31/22 15:49 BP 161/77 H 12/31/22 15:49 Pulse Ox 93 12/31/22 15:49 O2 Del Method Room Air 12/31/22 15:49 O2 Flow Rate 2 12/28/22 18:35 Testing Laboratory Results 12/31/22 12:04 12/30/22 07:33 APTT 37.9 Seconds (21.0-31.0) H 12/31/22 13:50 Urine Color Yellow 12/27/22 16:10 Urine Appearance Clear (Clear) 12/27/22 16:10 Urine pH 5.5 (4.5-7.5) 12/27/22 16:10 Ur Specific Ethel 1.019 (1.000-1.030) 12/27/22 16:10 Urine Protein 1+ (Negative) H 12/27/22 16:10 Urine Glucose (UA) Negative (Negative) 12/27/22 16:10 Urine Ketones Negative (Negative) 12/27/22 16:10 Urine Nitrite Negative (Negative) 12/27/22 16:10 Ur Leukocyte Esterase Negative (Negative) 12/27/22 16:10 Urine WBC (Auto) 1-5 /hpf (0-5) 12/27/22 16:10 Urine RBC (Auto) 0-4 /hpf (0-4) 12/27/22 16:10 U Hyaline Cast (Auto) 1-5 /lpf (0-5) 12/27/22 16:10 U Epithel Cells (Auto) 10-20 /lpf (0-5) H 12/27/22 16:10 Urine Bacteria (Auto) Negative (Negative) 12/27/22 16:10 12/29/22 12:13 Aerobic Blood Culture - Preliminary Blood No growth in Aerobic bottle after 48 hours. Anaerobic Blood Culture - Preliminary No growth in Anaerobic bottle after 48 hours. 12/29/22 12:13 Aerobic Blood Culture - Preliminary Blood No growth in Aerobic bottle after 48 hours. Anaerobic Blood Culture - Preliminary No growth in Anaerobic bottle after 48 hours. 12/28/22 18:03 Gram Stain - Final Foot,Right Aerobic and Anaerobic Culture - Preliminary Staph aureus MRSA 12/30/22 09:20 Aerobic Blood Culture - Preliminary Blood No growth in Aerobic bottle after 24 hours. Anaerobic Blood Culture - Preliminary No growth in Anaerobic bottle after 24 hours. 12/30/22 09:20 Aerobic Blood Culture - Preliminary Blood No growth in Aerobic bottle after 24 hours. Anaerobic Blood Culture - Preliminary No growth in Anaerobic bottle after 24 hours. 12/27/22 14:29 Aerobic Blood Culture - Preliminary Blood No growth in Aerobic bottle after 48 hours. Anaerobic Blood Culture - Preliminary No growth in Anaerobic bottle after 48 hours. 12/27/22 14:29 Aerobic Blood Culture - Preliminary Blood No growth in Aerobic bottle after 48 hours. Anaerobic Blood Culture - Preliminary No growth in Anaerobic bottle after 48 hours. 12/31/22 12/31/22 12:06 08:11 POC Glucose 238 H 177 H Electrocardiogram Date: 12/28/22 Findings: + NSR @ (@
[2022-12-31] MEDS ORDERED: SUCCINYLCHOLINE CHLORIDE 20 MG/ML 10 ML VIAL IV ONE (16:50)
[2022-12-31] MEDS ORDERED: PROPOFOL IV EMULSION 10 MG/ML 20 ML VIAL IV ONE (16:50)
[2022-12-31] MEDS ORDERED: fentaNYL citrate PF 100 MCG/2 ML VIAL ONE (16:50)
[2022-12-31] MEDS ORDERED: fentaNYL citrate PF 100 MCG/2 ML VIAL IV PRN (17:10)
[2022-12-31] MEDS ORDERED: PROMETHAZINE HCL 12.5 MG in SODIUM CHLORIDE 0.9% 50 ML IV PRN (17:10)
[2022-12-31] MEDS ORDERED: FLUMAZENIL 0.1 MG/1 ML 10 ML VIAL IV PRN (17:10)
[2022-12-31] MEDS ORDERED: LABETALOL HCL IV 5 MG/ML 20ML IV PRN (17:10)
[2022-12-31] MEDS ORDERED: ePHEDrine sulfate 50 MG/ML AMP IV PRN (17:10)
[2022-12-31] MEDS ORDERED: NALOXONE HCL 0.4 MG/1 ML VIAL/CARP IV PRN (17:10)
[2022-12-31] MEDS ORDERED: ATROPINE SULFATE 0.1 MG/ML 10ML SYR IV PRN (17:10)
--- NOTE | 2022-12-31 17:42 | GI REPORT ---
Patient Name: Antony Herbert Procedure Date: 12/31/2022 5:10 PM Date of : 1955 Admit Type: Inpatient Age: 67 Gender: Male Attending MD: Doroteo Wren DO, Procedure: Upper GI endoscopy Providers: Doroteo rWen DO Referring MD: Perfecto Grove M.d. Indications: Melena Medicines: General Anesthesia Complications: No immediate complications. Estimated blood loss: Minimal. Estimated Blood Loss: Estimated blood loss was minimal. Procedure: Pre-Anesthesia Assessment: - Prior to the procedure, a History and Physical was performed, and patient medications, allergies and sensitivities were reviewed. The patient's tolerance of previous anesthesia was reviewed. - The risks and benefits of the procedure and the sedation options and risks were discussed with the patient. All questions were answered and informed consent was obtained. - Patient identification and proposed procedure were verified prior to the procedure by the physician, the nurse and the cnc operator. The procedure was verified in the procedure room. - Pre-procedure physical examination revealed no contraindications to sedation. - ASA Grade Assessment: IV - A patient with severe systemic disease that is a constant threat to life. - After reviewing the risks and benefits, the patient was deemed in satisfactory condition to undergo the procedure. - The anesthesia plan was to use general anesthesia. - Immediately prior to administration of medications, the patient was re-assessed for adequacy to receive sedatives. - The heart rate, respiratory rate, oxygen saturations, blood pressure, adequacy of pulmonary ventilation, and response to care were monitored throughout the procedure. - The physical status of the patient was re-assessed after the procedure. After obtaining informed consent, the endoscope was passed under direct vision. Throughout the procedure, the patient's blood pressure, pulse, and oxygen saturations were monitored continuously. The Endoscope was introduced through the mouth, and advanced to the third part of duodenum. The upper GI endoscopy was accomplished without difficulty. The patient tolerated the procedure well. Findings: The examined esophagus was normal. The Z-line was irregular and was found 38 cm from the incisors. Diffuse mild inflammation was found in the entire examined stomach. A Dieulafoy lesion with oozing bleeding and stigmata of recent bleeding was found in the cardia. Area was successfully injected with 2 mL of a 1:10,000 solution of epinephrine for drug delivery. Coagulation for hemostasis using a 7 Fr multipolar probe was unsuccessful. For hemostasis, two hemostatic clips were successfully placed (MR conditional). Clip cost coordinator: Wundrbar. There was no bleeding at the end of the procedure. The examined duodenum was normal. Impression: - Normal esophagus. - Z-line irregular, 38 cm from the incisors. - Gastritis. - Dieulafoy lesion of gastric cardia treated with Multipolar coagulation and placement of 2 clips. - Normal examined duodenum. - No specimens collected. Recommendation: - Return patient to [facility] for [facility] care. - Clear liquid diet today. - Give Protonix (pantoprazole): 8 mg/hr IV by continuous infusion for 3 days. - Use sucralfate suspension 1 gram PO QID for 10 days. - Repeat upper endoscopy in 3 months for surveillance. - Avoid NSAIDs for 1 week - Would suggest holding anticoagulation for 3 days. Doroteo Wren D.O. Doroteo Wren, DO 12/31/2022 5:42:11 PM This report has been signed electronically. Note Initiated On: 12/31/2022 5:10 PM Number of Addenda: 0 I attest to the content of the Intraoperative Record and orders documented therein, exceptions below {[id number]}
--- NOTE | 2022-12-31 17:43 | Post Operative Brief Note ---
Immediate Post Op Note v1 Date of Surgery December 31, 2022 Pre & Post Diagnosis Operation Date: 12/31/22 Upper endocopy I identified the patient and participated in the time-out.: Yes Procedure Upper endoscopy Gastritis Dieulofoy lesion of the gastric cardia Surgeon Doroteo Wren, E Learning Coordinator None Estimated Blood Loss 0 Findings Consistent with Post-Op Diagnosis Specimens Deep culture swab - micro Tarsal metatarsal joint Right foot - Micro
--- NOTE | 2022-12-31 17:45 | Communication Note ---
Date of Service: December 31, 2022 The patient underwent upper endoscopy earlier this evening. We found evidence of active bleeding from a Dieulofoy lesion in the region of the gastric cardia. This was treated with thermal ablation which was ineffective after which 2 endoscopic clips were placed which resulted in cessation of bleeding. Recommendations may have clear liquids Continue Protonix drip for 72 hours then reduce to 40 mg daily. Carafate slurry 4 times daily for 10 days No NSAIDs for 1 week please May resume anticoagulation in 72 hours If rebleeding occurs patient will need referral to a tertiary center with interventional radiology support repeat EGD in 3 months
--- NOTE | 2022-12-31 18:23 | Anesthesiology Progress Note ---
Date of Service December 31, 2022 Anesthesia Post Procedure Vital Signs Vital Signs: Temp Pulse Pulse Resp BP BP Pulse Ox 12/31/22 18:12 37.7 C H 87 22 179/69 H 94 12/31/22 18:02 88 22 170/76 H 96 12/31/22 17:52 85 20 183/74 H 98 12/31/22 17:42 36.9 C 86 25 H 189/99 H 98 12/31/22 15:49 37.0 C 74 18 161/77 H 93 12/31/22 11:33 12/31/22 07:32 36.8 C 63 18 134/52 L 95 12/31/22 04:30 36.8 C 12/31/22 00:16 36.8 C 12/30/22 22:00 38.4 C H 12/30/22 20:49 12/30/22 19:13 38.3 C H 82 16 166/73 H O2 Del Method O2 Flow Rate 12/31/22 18:12 Room Air 12/31/22 18:02 Room Air 12/31/22 17:52 Oxymask 4 12/31/22 17:42 Oxymask 6 12/31/22 15:49 Room Air 12/31/22 11:33 Room Air 12/31/22 07:32 Room Air 12/31/22 04:30 12/31/22 00:16 12/30/22 22:00 12/30/22 20:49 Room Air 12/30/22 19:13 Room Air Pain Intensity Right Foot: Pain Intensity: 7 Transfer of Care Handoff Completed per policy Notes Mental Status: alert / awake / arousable Patient Amnestic to Procedure: Yes Nausea / Vomiting: adequately controlled Pain: adequately controlled Airway Patency, RR, SpO2: stable & adequate BP & HR: stable & adequate Hydration State: stable & adequate Anesthetic Complications: no major complications apparent
[2022-12-31] MEDS: FINERENONE PO SCH (18:41)
[2022-12-31] MEDS: SUCRALFATE 1 GM/10 ML UDC PO SCH (20:14)
[2022-12-31] MEDS: DAPTOmycin 550 MG in SYRINGE 0 ML IV SCH (20:14)
--- NOTE | 2022-12-31 22:32 | Hospitalist Progress Note ---
Date of Service December 31, 2022 Assessment & Plan (1) Diabetic foot infection: Plan: Acute blood loss Anemia -Likely secondary to acute upper GI bleed. Heparin will be held. Patient will need an upper endoscopy. Patient will be NPO for now. will transfuse if hemoglobin is below 7. placed on protonix drip. Diabetic foot infection w/ osteomyelitis of R foot [facility] vascular surgery records obtained 12/29, added to chart. With poorly controlled DM. Recently admitted to [place] and discharged x2, most recently on doxycycline for MRSA with adjunct clindamycin added 12/26 by automotive drivability technician on follow-up and recommended for ER evaluation Patient expresses frustration with [facility] and [place], preferred to be managed at [facility] and to establish with vascular here Given DFI with history of MRSA was admitted on Dapto/Zosyn - Prior Vascular Surgeon- [facility] Tasia Ho [facility]. Psychological Operations Dr. Farzana Watt [place] Continue broad coverage for DFI with worsening infection, continue Zosyn/Dapto at this time. Surgical cultures are pending, prelim positive for Staphylococcus species Cultures were taken at [place] 12/26. Statin held while on Dapto Peripheral vascular disease With history of arterial bypass Partial records received. Additional records from [facility] pending. Per printed record review patient did have a US arterial Doppler 12/21 which showed mid distal right superficial femoral artery stenosis with intact but diminished waveforms distal to area of stenosis; 50% right MANGANESE BREAKER and 50% proximal right superficial femoral artery stenoses were noted. - MRI shows right cuneiform and metatarsal osteomyelitis. Podiatry following, anticipate surgical revision Acute DVT -12/28/2022 arterial Doppler RLE: 1. A graft extending from the common femoral artery to the calf is occluded. 2. There are focally elevated velocities within the common femoral artery and the proximal superficial femoral artery indicating high-grade stenosis. 3. There is a long segment of thrombosis involving the mid to distal superficial femoral artery with distal reconstitution. 4. There is one-vessel runoff to the foot. The posterior tibial artery is patent 5. The mid to distal anterior tibial artery, the peroneal artery, and the dorsalis pedis artery are occluded. Based on updated Dopplers above vascular was consulted. Heparin drip initiated, no bolus low normal gram to minimize bleeding postoperatively. Seen by vascular 12/29. Continue current care; if graft to be pursued would need prosthetic and will follow for antibiotic treatment and healing first. Likely arteriogram next week. Appreciate recommendations Smoking cessation counseling provided on admission. Atorvastatin held while on daptomycin Hemoglobin has been down trending, will continue to closely monitor. CKD 3 Admitting creatinine 1.67 Baseline creatinine around 1.3 Creatinine is downtrending, 1.5 on 12/29 Transaminitis Mild, with history of hyperlipidemia. Patient denies history of liver disease Reviewed [facility] vascular records in [place] records, no mention of underlying liver disease/hepatitis/cirrhosis. Given persistent transaminitis will obtain ultrasound and acute hepatitis panel Type II DM, acute hyperglycemia Admitting BSG 317. Hold home pioglitazone Lactate normal Suspect elevation in the setting of infection Admitted on basal bolus based on TDD with pharmacy glycemic consult - CF 25/Ratio 9 Basal 15 BID (dose reduce to 10u BID while NPO) History of TIA No residual deficits Continued on Plavix 75 mg daily, patient also takes this due to his peripheral vascular disease DVT prophylaxis: SCDs, heparin subcu post-op Diet: N.p.o. pending surgical intervention 12/28 Disposition: Medical/surgical CODE STATUS: Full (2) T2DM (type 2 diabetes mellitus): (3) TIA (transient ischemic attack): (4) PVD (peripheral vascular disease): Admission and Anticipated Discharge Date Admission Date: December 27, 2022 Subjective Patient reports no new symptoms. Patient had an episode of dark starry stools. COnsulted GI. Review of Systems Review of Systems: All systems reviewed & are unremarkable except as noted in HPI & below Physical Exam Physical Exam: General: A&Ox3. NAD. Cooperative. HEENT: Atraumatic, normocephalic. Vision/hearing grossly intact Pulm: CTAB A&P. -wheezes, -rales, -rhonchi. Symmetrical chest rise. No increased work of breathing. No respiratory distress. Cardiac: RRR, -mrg. Radial pulses intact and symmetrical. Abdominal: Nontender, nondistended, soft. BS present. Extremities: Rlimb is wrapped in a postsurgical dressing to cover open surgical wound. Sensation of soft touch in hands is intact bilaterally, moves upper extremities equally. Hip flexion is intact bilaterally Results & Data Results & Data Vital Signs (Past 12 Hours) Vital Signs Temp Pulse Pulse Pulse Resp BP BP 12/31/22 21:03 37.9 C H 78 15 136/69 12/31/22 20:25 12/31/22 19:00 37.6 C H 80 20 153/69 H 12/31/22 18:30 37.4 C 84 16 171/70 H 12/31/22 18:22 80 24 177/73 H 12/31/22 18:12 37.7 C H 87 22 179/69 H 12/31/22 18:02 88 22 170/76 H 12/31/22 17:52 85 20 183/74 H 12/31/22 17:42 36.9 C 86 25 H 189/99 H 12/31/22 15:49 37.0 C 74 18 161/77 H 12/31/22 11:33 Pulse Ox O2 Del Method O2 Flow Rate 12/31/22 21:03 94 Room Air 12/31/22 20:25 Room Air 12/31/22 19:00 91 Room Air 12/31/22 18:30 93 Room Air 12/31/22 18:22 94 Room Air 12/31/22 18:12 94 Room Air 12/31/22 18:02 96 Room Air 12/31/22 17:52 98 Oxymask 4 12/31/22 17:42 98 Oxymask 6 12/31/22 15:49 93 Room Air 12/31/22 11:33 Room Air PG Care Time/CCT Total # of Minutes Spent Total Time Spent with Patient: Total time spent is greater than 50% in coordination of care (as documented) at patient's floor/unit and/or counseling patient: Coding Level of Care Code 42275 SUB INP/OBS CARE 3/50MIN Diagnoses Diabetic foot infection E11.628; L08.9 T2DM (type 2 diabetes mellitus) E11.9 TIA (transient ischemic attack) G45.9 PVD (peripheral vascular disease) I73.9 Time Spent (min) 50
[2023-01-01] MEDS: LACTATED RINGER'S 1,000 ML IV SCH ×3 (02:29→20:13)
[2023-01-01] MEDS: PANTOprazole 40 MG in DEXTROSE 5% 100 ML IV SCH ×5 (02:29→21:55)
[2023-01-01] MEDS: traMADol HCL 50 MG TABLET PO PRN ×2 (04:00→20:12)
[2023-01-01] MEDS: PIPERACILLIN/TAZOBACTAM 4.5 GM in DEXTROSE 5% 100 ML IV SCH ×3 (05:21→20:47)
[2023-01-01] MEDS: ACETAMINOPHEN 1,000 MG/100 ML VIAL IV SCH ×3 (05:21→21:58)
[2023-01-01 07:34] LABS: Anisocytosis Present; Basophils # (auto) 0.02 K/uL (0-0.2); Basophils % (auto) 0.2 %; Eosinophils # (auto) 0.09 K/uL (0-0.50); Eosinophils % (auto) 0.9 %; Hematocrit (blood only) 20.4 % (42.0-52.0); Immature Granulocytes # (auto) 0.07 K/uL (0.01-0.20); Immature Granulocytes % (auto) 0.7 %; Lymphocytes # (auto) 1.91 K/uL (1.2-3.4); Lymphocytes % (auto) 19.5 %; Mean Corpuscular Hgb Conc 34.3 g/dL (32.0-36.0); Mean Corpuscular Volume 96.2 fL (80.0-100.0); Mean Platelet Volume 9.2 fL (9.4-12.4); Monocytes # (auto) 0.62 K/uL (0.11-0.59); Monocytes % (auto) 6.3 %; Neutrophils % (auto) 72.4 %; Platelet Count 354 K/uL (130-400); Polychromasia 1+; RDW Coefficient of Variation 13.2 % (11.5-14.5); RDW Standard Deviation 46.9 fL (36.4-46.3); Red Blood Count 2.12 M/uL (4.70-6.10); White Blood Count 9.81 K/ul (4.8-10.8)
[2023-01-01] MEDS: HYDROmorphone INJ 0.5 MG/0.5 ML SYR IV PRN (07:45)
[2023-01-01 08:30] LABS: Estimated Average Glucose 157 mg/dl; Hemoglobin A1C 7.1 % (4.5-5.6)
[2023-01-01] MEDS: INSULIN ASPART PER UNIT CHARGE SC SCH ×4 (09:01→20:54)
[2023-01-01] MEDS: LANTUS PER UNIT CHARGE SQ SCH ×2 (09:03→20:55)
[2023-01-01] MEDS: cilostazoL 100 MG TAB PO SCH ×2 (09:07→20:12)
[2023-01-01] MEDS: SUCRALFATE 1 GM/10 ML UDC PO SCH ×4 (09:07→20:12)
[2023-01-01] MEDS: ASCORBIC ACID 500 MG TAB PO SCH (09:07)
[2023-01-01] MEDS: GABAPENTIN 600 MG TAB PO SCH ×4 (09:07→20:12)
[2023-01-01] MEDS: ADVANCED PROBIOTIC 1250 MG CAPSULE PO SCH (09:07)
--- NOTE | 2023-01-01 09:32 | Gastroenterology Progress Note ---
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 This was treated with endoscopic therapy. Recommendations Advance diet as tolerated Protonix drip for total of 72 hours Carafate slurry 4 times daily for 10 days total Avoid NSAIDS for another 4 days Anticoagulation and antiplatelet agents for total of 72 hours If rebleeding occurs patient would likely need referral to a tertiary center with interventional radiology support Repeat upper endoscopy in 12 weeks Admission and Anticipated Discharge Date Admission Date: December 27, 2022 Subjective The patient underwent upper endoscopy yesterday with identification of blood loss from a Dieulpfoy lesion in the gastric cardia. This was treated with thermal therapy and placement of several endoscopic clips. The patient denies having abdominal pain or nausea today. Review of Systems Respiratory: no cough, no dyspnea and no hemoptysis Cardiovascular: no chest pain with activity and no dyspnea at rest Gastrointestinal: no nausea, no vomiting and no hematemesis Physical Exam Eyes: PERRL, conjunctivae normal, anicteric sclerae ENMT: external ear and nose normal, oropharynx normal Respiratory: Auscultation: + diminished lung sounds; no crackles, no rales and no wheezes Cardiovascular: Rate/Rhythm: regular rate and regular rhythm Heart Sounds: + murmur Gastrointestinal (Abdomen): Inspection/Auscultation: abdomen not distended Percussion/Palpation: abdomen soft; abdomen nontender and no guarding Results & Data Vital Signs (Past 12 Hours) Vital Signs Temp Pulse Resp BP Pulse Ox O2 Del Method 01/01/23 07:24 37.1 C 80 18 134/78 93 Room Air 01/01/23 02:34 37.2 C 77 16 135/69 95 Room Air 01/01/23 01:34 37.4 C Laboratory Results Laboratory Results - last 24 hr 12/30/22 12/31/22 12/31/22 07:33 12:04 12:06 WBC RBC Hgb 7.7 L Hct 22.3 L MCV MCH MCHC RDW Std Deviation RDW Coeff of Calli Plt Count MPV Immature Gran % (Auto) Neut % (Auto) Lymph % (Auto) Sullivan % (Auto) Eos % (Auto) Baso % (Auto) Neut # (Auto) Lymph # (Auto) Sullivan # (Auto) Eos # (Auto) Baso # (Auto) Immature Gran # (Auto) Polychromasia Anisocytosis APTT PTT Ratio POC Glucose 238 H Estimat Average Glucose Hemoglobin A1c Total Creatine Kinase Hepatitis A IgM Ab NON-REACTIVE Hep Bs Antigen NON-REACTIVE Hep Bs Ag Confirmation TNP Hep B Core IgM Ab NON-REACTIVE Hepatitis C Ab (EIA) NON-REACTIVE 12/31/22 12/31/22 12/31/22 13:50 18:01 20:36 WBC RBC Hgb Hct MCV MCH MCHC RDW Std Deviation RDW Coeff of Calli Plt Count MPV Immature Gran % (Auto) Neut % (Auto) Lymph % (Auto) Sullivan % (Auto) Eos % (Auto) Baso % (Auto) Neut # (Auto) Lymph # (Auto) Sullivan # (Auto) Eos # (Auto) Baso # (Auto) Immature Gran # (Auto) Polychromasia Anisocytosis APTT 37.9 H PTT Ratio 1.3 POC Glucose 208 H 228 H Estimat Average Glucose Hemoglobin A1c Total Creatine Kinase Hepatitis A IgM Ab Hep Bs Antigen Hep Bs Ag Confirmation Hep B Core IgM Ab Hepatitis C Ab (EIA) 01/01/23 01/01/23 01/01/23 06:18 06:18 06:18 WBC 9.81 RBC 2.12 L Hgb 7.0 L Hct 20.4 L* MCV 96.2 MCH 33.0 MCHC 34.3 RDW Std Deviation 46.9 H RDW Coeff of Calli 13.2 Plt Count 354 MPV 9.2 L Immature Gran % (Auto) 0.7 Neut % (Auto) 72.4 Lymph % (Auto) 19.5 Sullivan % (Auto) 6.3 Eos % (Auto) 0.9 Baso % (Auto) 0.2 Neut # (Auto) 7.10 H Lymph # (Auto) 1.91 Sullivan # (Auto) 0.62 H Eos # (Auto) 0.09 Baso # (Auto) 0.02 Immature Gran # (Auto) 0.07 Polychromasia 1+ Anisocytosis Present APTT PTT Ratio POC Glucose Estimat Average Glucose 157 Hemoglobin A1c 7.1 H Total Creatine Kinase 33 Hepatitis A IgM Ab Hep Bs Antigen Hep Bs Ag Confirmation Hep B Core IgM Ab Hepatitis C Ab (EIA) 01/01/23 08:16 WBC RBC Hgb Hct MCV MCH MCHC RDW Std Deviation RDW Coeff of Calli Plt Count MPV Immature Gran % (Auto) Neut % (Auto) Lymph % (Auto) Sullivan % (Auto) Eos % (Auto) Baso % (Auto) Neut # (Auto) Lymph # (Auto) Sullivan # (Auto) Eos # (Auto) Baso # (Auto) Immature Gran # (Auto) Polychromasia Anisocytosis APTT PTT Ratio POC Glucose 168 H Estimat Average Glucose Hemoglobin A1c Total Creatine Kinase Hepatitis A IgM Ab Hep Bs Antigen Hep Bs Ag Confirmation Hep B Core IgM Ab Hepatitis C Ab (EIA)
--- NOTE | 2023-01-01 12:42 | Pharmacy Report ---
Pharmacy Glycemic Short Note 2 - Date of Service January 01, 2023 - Glycemic Short BSG Results (Last 24 hours): 12/31/22 12/31/22 01/01/23 18:01 20:36 08:16 POC Glucose 208 H 228 H 168 H 01/01/23 12:22 POC Glucose 215 H OUTPATIENT ANTIDIABETIC REGIMEN: * Lantus (unknown dose) * Novolog (unknown dose) * HbA1c 7.1% on 01/01/23 ASSESSMENT: * 67 yo M w T2DM. Admitted 12/27 with diabetic foot infection. Pharmacy consulted 12/31 for hyperglycemia and also NPO. Did not make aggressive changes yesterday 2nd NPO, but now ordered a diet again and OK to increase Lantus. * Novolog tightened to weight-based moderate stress estimate yesterday but with slightly tighter correction factor. Will leave for now PLAN FOR INPATIENT GLYCEMIC CONTROL: * Basal insulin * Lantus 18 units SQ BID (reduce to 10 units if BSG less than 150 mg/dL) * Bolus insulin * NovoLog per scale ACHS or Q6hrs while NPO * Goal Range: Low 110 mg/dL - High 140 mg/dL * Correction Factor: 20 mg/dL/unit * Nutritional / Prandial insulin per carb ratio of 1 unit per 8 grams CHO consumed
[2023-01-01] MEDS: FINERENONE PO SCH (17:03)
--- NOTE | 2023-01-01 18:01 | Hospitalist Progress Note ---
Date of Service January 01, 2023 Assessment & Plan (1) Diabetic foot infection: Plan: Acute blood loss Anemia -Likely secondary to acute upper GI bleed. Heparin will be held. obtained upper GI endoscopy. input from GI: - Return patient to [facility] for ongoing care. - Clear liquid diet today. - Give Protonix (pantoprazole): 8 mg/hr IV by continuous infusion for 3 days. - Use sucralfate suspension 1 gram PO QID for 10 days. - Repeat upper endoscopy in 3 months for surveillance. - Avoid NSAIDs for 1 week - Would suggest holding anticoagulation for 3 days. Diabetic foot infection w/ osteomyelitis of R foot [facility] vascular surgery records obtained 12/29, added to chart. With poorly controlled DM. Recently admitted to [place] and discharged x2, most recently on doxycycline for MRSA with adjunct clindamycin added 12/26 by helicopter repairer on follow-up and recommended for ER evaluation Patient expresses frustration with [facility] and [place], preferred to be managed at [facility] and to establish with vascular here Given DFI with history of MRSA was admitted on Dapto/Zosyn - Prior Vascular Surgeon- [facility] Tasia Ho [facility]. Authorization Rep Dr. Farzana Dwyer [facility] Continue broad coverage for DFI with worsening infection, continue Zosyn/Dapto at this time. Surgical cultures are pending, prelim positive for Staphylococcus species Cultures were taken at [place] 12/26. Statin held while on Dapto Peripheral vascular disease With history of arterial bypass Partial records received. Additional records from [facility] pending. Per p kaylan record review patient did have a US arterial Doppler 12/21 which showed mid distal right superficial femoral artery stenosis with intact but diminished waveforms distal to area of stenosis; 50% right PROPERTY UTILIZATION MANAGER and 50% proximal right superficial femoral artery stenoses were noted. - MRI shows right cuneiform and metatarsal osteomyelitis. Podiatry following, anticipate surgical revision Acute DVT -12/28/2022 arterial Doppler RLE: 1. A graft extending from the common femoral artery to the calf is occluded. 2. There are focally elevated velocities within the common femoral artery and the proximal superficial femoral artery indicating high-grade stenosis. 3. There is a long segment of thrombosis involving the mid to distal superficial femoral artery with distal reconstitution. 4. There is one-vessel runoff to the foot. The posterior tibial artery is patent 5. The mid to distal anterior tibial artery, the peroneal artery, and the dorsalis pedis artery are occluded. Based on updated Dopplers above vascular was consulted. Heparin drip initiated, no bolus low normal gram to minimize bleeding postoperatively. Seen by vascular 12/29. Continue current care; if graft to be pursued would need prosthetic and will follow for antibiotic treatment and healing first. Likely arteriogram next week. Appreciate recommendations Smoking cessation counseling provided on admission. Atorvastatin held while on daptomycin hemoglobin has been steady. CKD 3 Admitting creatinine 1.67 Baseline creatinine around 1.3 Creatinine is downtrending, 1.5 on 12/29 Transaminitis Mild, with history of hyperlipidemia. Patient denies history of liver disease Reviewed [facility] vascular records in [place] records, no mention of underlying liver disease/hepatitis/cirrhosis. Given persistent transaminitis will obtain ultrasound and acute hepatitis panel Type II DM, acute hyperglycemia Admitting BSG 317. Hold home pioglitazone Lactate normal Suspect elevation in the setting of infection Admitted on basal bolus based on TDD with pharmacy glycemic consult - CF 25/Ratio 9 Basal 15 BID (dose reduce to 10u BID while NPO) History of TIA No residual deficits Continued on Plavix 75 mg daily, patient also takes this due to his peripheral vascular disease DVT prophylaxis: SCDs, heparin subcu post-op Diet: N.p.o. pending surgical intervention 12/28 Disposition: Medical/surgical CODE STATUS: Full (2) T2DM (type 2 diabetes mellitus): (3) TIA (transient ischemic attack): (4) PVD (peripheral vascular disease): Admission and Anticipated Discharge Date Admission Date: December 27, 2022 Subjective 67 yo male reports no new symptoms. He no longer has black tarry stools. Review of Systems Review of Systems: All systems reviewed & are unremarkable except as noted in HPI & below Physical Exam Physical Exam: General: A&Ox3. NAD. Cooperative. HEENT: Atraumatic, normocephalic. Vision/hearing grossly intact Pulm: CTAB A&P. -wheezes, -rales, -rhonchi. Symmetrical chest rise. No increased work of breathing. No respiratory distress. Cardiac: RRR, -mrg. Radial pulses intact and symmetrical. Abdominal: Nontender, nondistended, soft. BS present. Extremities: Rlimb is wrapped in a postsurgical dressing to cover open surgical wound. Sensation of soft touch in hands is intact bilaterally, moves upper extremities equally. Hip flexion is intact bilaterally Results & Data Results & Data Vital Signs (Past 12 Hours) Vital Signs Temp Pulse Resp BP Pulse Ox O2 Del Method 01/01/23 16:09 37.2 C 72 18 126/48 L 94 Room Air 01/01/23 10:04 Room Air 01/01/23 07:24 37.1 C 80 18 134/78 93 Room Air PG Care Time/CCT Total # of Minutes Spent Total Time Spent with Patient: Total time spent is greater than 50% in coordination of care (as documented) at patient's floor/unit and/or counseling patient: Coding Level of Care Code 88552 SUB INP/OBS CARE 2/35MIN Diagnoses Diabetic foot infection E11.628; L08.9 T2DM (type 2 diabetes mellitus) E11.9 TIA (transient ischemic attack) G45.9 PVD (peripheral vascular disease) I73.9
[2023-01-01] MEDS: DAPTOmycin 550 MG in SYRINGE 0 ML IV SCH (20:12)
[2023-01-01] MEDS: SODIUM CHLORIDE 0.9% 1000ML 1,000 ML IV SCH (20:13)
[2023-01-02] MEDS: PANTOprazole 40 MG in DEXTROSE 5% 100 ML IV SCH ×4 (02:43→21:08)
[2023-01-02] MEDS: PIPERACILLIN/TAZOBACTAM 4.5 GM in DEXTROSE 5% 100 ML IV SCH ×2 (05:02→12:54)
[2023-01-02] MEDS: ACETAMINOPHEN 1,000 MG/100 ML VIAL IV SCH (05:02)
[2023-01-02] MEDS: LACTATED RINGER'S 1,000 ML IV SCH ×2 (05:57→16:07)
[2023-01-02 06:53] LABS: Hematocrit (blood only) 21.2 % (42.0-52.0); Hemoglobin 7.1 g/dl (14.0-18.0); Mean Corpuscular Hemoglobin 33.3 pg (25.0-34.0); Mean Corpuscular Hgb Conc 33.5 g/dL (32.0-36.0); Mean Corpuscular Volume 99.5 fL (80.0-100.0); Mean Platelet Volume 9.3 fL (9.4-12.4); Platelet Count 419 K/uL (130-400); RDW Coefficient of Variation 13.3 % (11.5-14.5); RDW Standard Deviation 47.8 fL (36.4-46.3); Red Blood Count 2.13 M/uL (4.70-6.10); White Blood Count 10.79 K/ul (4.8-10.8)
[2023-01-02 07:15] LABS: Basophils # (auto) 0.02 K/uL (0-0.2); Basophils % (auto) 0.2 %; Eosinophils # (auto) 0.18 K/uL (0-0.50); Eosinophils % (auto) 1.7 %; Immature Granulocytes % (auto) 0.9 %; Lymphocytes # (auto) 2.44 K/uL (1.2-3.4); Lymphocytes % (auto) 22.6 %; Monocytes # (auto) 0.75 K/uL (0.11-0.59); Neutrophils % (auto) 67.6 %; RBC Morphology Unremarkable
[2023-01-02] MEDS: traMADol HCL 50 MG TABLET PO PRN ×2 (07:45→16:45)
--- NOTE | 2023-01-02 07:47 | History & Physical Bridge Note ---
Date of Service January 02, 2023 History & Physical Bridge Note Patient for arteriography today of the right lower extremity. I have discussed the risks options and benefits of the procedure with the patient. The patient understands the risks options and benefits and agrees to the procedure. I have examined the patient, reviewed the History & Physical and in the interval since the performance of the History & Physical I have noted the following changes of clinical significance: no changes noted
--- NOTE | 2023-01-02 08:17 | Anesthesiology Consultation ---
Date of Service January 02, 2023 Assessment & Plan (1) Encounter for pre-operative examination: History Surgery Operation Date: 12/28/22 09:40 Proposed Procedures p Right Foot Transmetatarsal Amputation - Gaston Novak DPM, MS Operation Date: 12/31/22 17:45 Proposed Procedures p EGD Hemostasis - Doroteo Wren DO Operation Date: 01/01/23 08:55 Proposed Procedures p Right Foot Wash Out Delayed Primary Closure - Gaston Novak DPM, MS Operation Date: 01/02/23 07:00 Proposed Procedures p Right Lower Extremity Arteriogram - Darwin Waller MD Operation Date: 01/02/23 16:30 Proposed Procedures p Esophagogastroduodenoscopy Dr Matute - Anusha Matute MD Height/Weight Height: 6 ft 1 in Weight: 103.2 kg Allergies Allergy/AdvReac Type Severity Reaction Status Date / Time bee venom protein (honey bee) Allergy Severe Anaphylaxis Unverified 12/27/22 16:09 Medications Home Medications Medication Instructions Recorded Confirmed Last Taken acetaminophen 500 mg tablet 500 mg PO DAILY PRN Pain 12/27/22 12/27/22 Unknown ascorbic acid (vitamin C) 500 mg 500 mg PO DAILY 12/27/22 12/27/22 Unknown tablet atorvastatin 20 mg tablet 20 mg PO DAILY 12/27/22 12/27/22 Unknown cholecalciferol (vitamin D3) 50 50 mcg PO DAILY 12/27/22 12/27/22 Unknown mcg (2,000 unit) capsule (Vitamin D3) cilostazol 100 mg tablet 100 mg PO BID 12/27/22 12/27/22 Unknown clindamycin HCl 300 mg capsule 300 mg PO Q6H 12/27/22 12/27/22 Unknown clopidogrel 75 mg tablet 75 mg PO DAILY 12/27/22 12/27/22 Unknown epinephrine 0.3 mg/0.3 mL 0.3 mg IM DIRECTED 12/27/22 12/27/22 Unknown injection, auto-injector finerenone 10 mg tablet (Kerendia) 10 mg PO DAILY 12/27/22 12/27/22 Unknown gabapentin 300 mg capsule 600 mg PO QID 12/27/22 12/27/22 Unknown insulin aspart U-100 100 unit/mL 0 unit subcut DIRECTED 12/27/22 12/27/22 Unknown (3 mL) subcutaneous pen (Novolog FlexPen U-100 Insulin aspart) insulin glargine 100 unit/mL (3 0 unit subcut QPM 12/27/22 12/27/22 Unknown mL) subcutaneous pen (Lantus Solostar U-100 Insulin) lisinopril 40 mg tablet 40 mg PO HS 12/27/22 12/27/22 Unknown multivitamin 1 tab PO DAILY 12/27/22 12/27/22 Unknown pioglitazone 45 mg tablet 45 mg PO DAILY 12/27/22 12/27/22 Unknown tramadol 50 mg tablet 50 mg PO BID PRN Pain 12/27/22 12/27/22 Unknown vit C 250 mg-vit E 90 mg-zinc 40 1 cap PO DAILY 12/27/22 12/27/22 Unknown mg-copper 1 [id number] capsule (PreserVision AREDS-2) Active Medications Generic Name Dose Route Start Last Admin Trade Name Freq PRN Reason Stop Dose Admin Acetaminophen 500 mg 12/27/22 19:58 12/30/22 00:48 Acetaminophen 500 Mg Tab PO 01/26/23 19:57 500 mg DAILY PRN Administration Pain Ascorbic Acid 500 mg 12/28/22 09:00 01/01/23 09:07 Ascorbic Acid 500 Mg Tab PO 01/27/23 08:59 500 mg DAILY ZINA Administration Cilostazol 100 mg 12/27/22 21:00 01/01/23 20:12 Cilostazol 100 Mg Tab PO 01/26/23 20:59 100 mg BID ZINA Administration Gabapentin 600 mg 12/27/22 21:00 01/01/23 20:12 Gabapentin 600 Mg Tab PO 01/26/23 20:59 600 mg QID ZINA Administration Hydromorphone HCl 0.5 mg 12/28/22 10:57 01/01/23 07:45 Hydromorphone Inj 0.5 Mg/0.5 Ml Syr IV 01/11/23 10:56 0.5 mg Q4H PRN Administration Breakthrough Pain Piperacillin Sod/Tazobactam 120 mls @ 30 mls/hr 12/27/22 21:00 01/02/23 05:02 Sod 4.5 gm/ Dextrose IV 01/03/23 20:59 30 mls/hr Q8H ZINA Administration Protocol Acetaminophen 1,000 mg in 100 mls @ 400 mls/hr 12/30/22 14:00 01/02/23 05:58 Ofirmev IV 01/02/23 13:59 Infused Q8H ZINA Infusion Daptomycin 550 mg/ Syringe 11 mls @ 5.5 mls/min 12/30/22 20:00 01/01/23 20:12 IV 01/04/23 19:59 5.5 mls/min Q24H ZINA Administration Protocol Pantoprazole Sodium 40 mg/ 100 mls @ 20 mls/hr 12/31/22 10:15 01/02/23 02:43 Dextrose IV 01/30/23 10:14 8 mg/hr Q5H ZINA 20 mls/hr Administration 8 MG/HR Lactated Ringer's 1,000 mls @ 100 mls/hr 12/31/22 11:30 01/02/23 05:57 Lr IV 01/30/23 11:29 100 mls/hr .Q10H ZINA Administration Insulin Aspart 0 units 12/31/22 21:00 01/01/23 20:54 Insulin Aspart Per Unit Charge SC 01/30/23 20:59 2 units ACHS ZINA Administration Protocol Insulin Glargine 0 units 12/31/22 21:00 01/01/23 20:55 Lantus Per Unit Charge SQ 01/30/23 20:59 18 units BID ZINA Administration Protocol Lactobacillus Acidophilus 2 cap 12/30/22 13:15 01/01/23 09:07 Advanced Probiotic 1250 Mg Capsule PO 01/29/23 13:14 2 cap DAILY ZINA Administration Finerenone [Kerendia 1 each 12/31/22 17:00 01/01/23 17:03 ] Tablet~Non- PO 01/30/23 16:59 1 tab Formulary Patient's DAILY@1700 ZINA Administration Own Med Sucralfate 1 gm 12/31/22 21:00 01/01/23 20:12 Sucralfate 1 Gm/10 Ml Udc PO 01/30/23 20:59 1 gm QID ZINA Administration Tramadol HCl 50 mg 12/27/22 19:58 01/02/23 07:45 Tramadol Hcl 50 Mg Tablet PO 01/26/23 19:57 50 mg BID PRN Administration Pain NPO Date Last Intake of Fluids: 12/31/22 Time Last Intake of Fluids: 08:45 Last Intake of Fluids Comment: sips Date Last Intake of Solids: 12/31/22 Time Last Intake of Solids: 08:45 Past Medical History Medical History (Updated 01/02/23 @ 08:17 by Lianne Blakely MD) CKD (chronic kidney disease) Diabetic foot infection 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 Melena Osteomyelitis of right foot PVD (peripheral vascular disease) T2DM (type 2 diabetes mellitus) TIA (transient ischemic attack) Past Surgical History Surgical History History of femoropopliteal bypass Social History Smoking Status: Current every day smoker tobacco type: cigarettes Do You Dip or Chew Tobacco: No Hx Substance Use: No substance use type: does not use Physical Exam Vital Signs Last Vital Signs Temp 37.2 C 01/02/23 07:24 Pulse 84 01/02/23 07:24 Resp 18 01/02/23 07:24 BP 136/51 L 01/02/23 07:24 Pulse Ox 92 01/02/23 07:24 O2 Del Method Room Air 01/02/23 07:24 O2 Flow Rate 4 12/31/22 17:52 Testing Laboratory Results 01/02/23 06:03 12/30/22 07:33 APTT 37.9 Seconds (21.0-31.0) H 12/31/22 13:50 Hemoglobin A1c 7.1 % (4.5-5.6) H 01/01/23 06:18 Urine Color Yellow 12/27/22 16:10 Urine Appearance Clear (Clear) 12/27/22 16:10 Urine pH 5.5 (4.5-7.5) 12/27/22 16:10 Ur Specific [place] 1.019 (1.000-1.030) 12/27/22 16:10 Urine Protein 1+ (Negative) H 12/27/22 16:10 Urine Glucose (UA) Negative (Negative) 12/27/22 16:10 Urine Ketones Negative (Negative) 12/27/22 16:10 Urine Nitrite Negative (Negative) 12/27/22 16:10 Ur Leukocyte Esterase Negative (Negative) 12/27/22 16:10 Urine WBC (Auto) 1-5 /hpf (0-5) 12/27/22 16:10 Urine RBC (Auto) 0-4 /hpf (0-4) 12/27/22 16:10 U Hyaline Cast (Auto) 1-5 /lpf (0-5) 12/27/22 16:10 U Epithel Cells (Auto) 10-20 /lpf (0-5) H 12/27/22 16:10 Urine Bacteria (Auto) Negative (Negative) 12/27/22 16:10 12/27/22 14:29 Aerobic Blood Culture - Final Blood No growth in Aerobic bottle after 5 days. Anaerobic Blood Culture - Final No growth in Anaerobic bottle after 5 days. 12/27/22 14:29 Aerobic Blood Culture - Final Blood No growth in Aerobic bottle after 5 days. Anaerobic Blood Culture - Final No growth in Anaerobic bottle after 5 days. 12/30/22 09:20 Aerobic Blood Culture - Preliminary Blood No growth in Aerobic bottle after 48 hours. Anaerobic Blood Culture - Preliminary No growth in Anaerobic bottle after 48 hours. 12/30/22 09:20 Aerobic Blood Culture - Preliminary Blood No growth in Aerobic bottle after 48 hours. Anaerobic Blood Culture - Preliminary No growth in Anaerobic bottle after 48 hours. 12/29/22 12:13 Aerobic Blood Culture - Preliminary Blood No growth in Aerobic bottle after 48 hours. Anaerobic Blood Culture - Preliminary No growth in Anaerobic bottle after 48 hours. 12/29/22 12:13 Aerobic Blood Culture - Preliminary Blood No growth in Aerobic bottle after 48 hours. Anaerobic Blood Culture - Preliminary No growth in Anaerobic bottle after 48 hours. 12/28/22 18:03 Gram Stain - Final Foot,Right Aerobic and Anaerobic Culture - Preliminary Staph aureus MRSA 01/02/23 01/01/23 07:53 20:36 POC Glucose 159 H 180 H
[2023-01-02] MEDS ORDERED: fentaNYL citrate PF 100 MCG/2 ML VIAL ONE (09:22)
[2023-01-02] MEDS ORDERED: LIDOCAINE 1% LOCAL 20 ML VIAL ONE (09:22)
[2023-01-02] MEDS ORDERED: MIDAZOLAM HCL 1 MG/ML 2ML VIAL ONE (09:22)
[2023-01-02] MEDS ORDERED: HEPARIN SOD (PORCINE) 1000 UNIT/ML ONE (09:59)
[2023-01-02] MEDS ORDERED: VISIPAQUE IV PRN (10:24)
--- NOTE | 2023-01-02 10:28 | Pre Anesthesia Assessment ---
Date of Service January 02, 2023 Pre Sedation Assessment Vital Signs Temp Pulse Pulse Pulse Resp BP Pulse Ox 01/02/23 10:27 78 17 184/89 H 98 01/02/23 10:22 78 14 171/108 H 96 01/02/23 10:17 79 14 186/112 H 95 01/02/23 10:12 74 16 186/83 H 97 01/02/23 10:03 78 16 185/108 H 97 01/02/23 09:25 01/02/23 09:01 37.2 C 79 19 205/91 H 01/02/23 08:29 37.4 C 89 20 94 01/02/23 07:24 37.2 C 84 18 136/51 L 92 01/02/23 06:59 37.4 C 90 16 174/81 H 93 01/01/23 20:03 37.2 C 78 18 159/72 H 96 01/01/23 16:09 37.2 C 72 18 126/48 L 94 O2 Del Method O2 Flow Rate 01/02/23 10:27 Oxymask 4 01/02/23 10:22 Oxymask 4 01/02/23 10:17 Oxymask 4 01/02/23 10:12 Oxymask 4 01/02/23 10:03 Oxymask 4 01/02/23 09:25 Room Air 01/02/23 09:01 01/02/23 08:29 Room Air 01/02/23 07:24 Room Air 01/02/23 06:59 Room Air 01/01/23 20:03 Room Air 01/01/23 16:09 Room Air Cardiovascular RRR, no murmur, no edema Respiratory normal respiratory effort, lungs clear to auscultation Pre-Sedation Airway Assessment Smoking Status: Current every day smoker Hx Sleep Apnea: No Short, Thick Neck: No Thyromental Distance: > or= 3.5 Finger Breadths Oral Cavity: + Dentures Mallampati Class: II ASA: ASA3 NPO Status Date of Last Intake of Fluids: 01/01/23 Time of Last Intake of Fluids: 07:00 Date of Last Intake of Solid Food: 01/01/23 Time of Last Intake of Solid Foods: 18:00 Procedure Planning Contraindications for Sedation: none Current Medications Reviewed: Yes Notes The planned sedation has been discussed with the patient. Informed Consent was obtained. I have identified the patient, determined the appropriateness of sedation and have assessed the patient immediately prior to the procedure. All medicine(s) and interventions are by my order.
--- NOTE | 2023-01-02 10:56 | Procedure Note ---
Angiogram Post Procedure Fluoroscopy Time (minutes): 1.8 Conscious Sedation Time (minutes): 30 Radiation (mGy): 76 Contrast: 40 Post Operative Report Pre & Post Diagnosis Operation Date: 01/02/23 07:00 Pre-Op Diagnosis: Non Healing Wound Post-Op Diagnosis: Non Healing Wound I identified the patient and participated in the time-out.: Yes Procedure Operation Date: 01/02/23 07:00 Actual Procedures p Right Lower Extremity Angiogram, Ultrasound Localization of Left Femoral Artery, Moderate Sedation [id number](Left) - Darwin Waller MD Surgeon Darwin Waller MD [place] Acreage Measurer None Estimated Blood Loss 5 Findings Consistent with Post-Op Diagnosis Right superficial femoral artery occlusion Specimens None Anesthesia Type RN Sedation Complications none Indications Patient 67-year-old gentleman with a infected wound of his right foot which is nonhealing. He has had a previous femoral to distal bypass on the right side which is now occluded. Arteriography was recommended for revascularization purposes. I have discussed the risks options and benefits of the procedure with the patient. The patient understands the risks options and benefits and agrees to the procedure. Description of Procedure The patient was taken the operating room placed in supine position. The groins were then prepped and draped in a sterile manner. A timeout was performed and the patient was identified. Ultrasound was used to locate the left common femoral artery which had moderate plaque and was patent. Local anesthetic was then administered. With ultrasound the left common femoral artery was punctured. A 5 Setswana sheath was inserted. Using an 035 Glidewire and a rim catheter the right iliac was cannulated from the left side. The catheter was advanced down to the mid external iliac artery. Arteriography was then performed of the right lower extremity which showed the common femoral profundofemoral arteries to be patent. Superficial femoral artery was patent down to the upper thigh which point it was occluded. There is reconstitution of the popliteal however this was occluded distally at the trifurcation. Anterior tibial and peroneal arteries were occluded. Posterior tibial artery reconstituted in the upper calf and fed the foot. No intervention was done at this time. Hand-injection was then performed through the sheath to look at the left common femoral puncture site. Puncture site was just above the bifurcation therefore the sheath was pulled and pressure was applied. Adequate stasis was obtained. Sterile dressings were applied to the wound.The patient left the operation room in satisfactory condition and tolerated the procedure well. All needle and sponge counts were correct at the end of the procedure. I attest to the content of the Intraoperative Record and any orders documented therein. Any exceptions are noted below.
[2023-01-02] MEDS ORDERED: SODIUM CHLORIDE 0.9% 1000ML 1,000 ML IV SCH (11:02)
[2023-01-02] MEDS: INSULIN ASPART PER UNIT CHARGE SC SCH ×4 (11:04→20:46)
[2023-01-02] MEDS: SUCRALFATE 1 GM/10 ML UDC PO SCH ×4 (11:10→21:08)
[2023-01-02] MEDS: ADVANCED PROBIOTIC 1250 MG CAPSULE PO SCH (11:10)
[2023-01-02] MEDS: cilostazoL 100 MG TAB PO SCH ×2 (11:11→20:46)
[2023-01-02] MEDS: GABAPENTIN 600 MG TAB PO SCH ×4 (11:11→20:46)
[2023-01-02] MEDS: ASCORBIC ACID 500 MG TAB PO SCH (11:11)
[2023-01-02] MEDS: LANTUS PER UNIT CHARGE SQ SCH ×2 (11:23→21:07)
[2023-01-02] MEDS: HYDROmorphone INJ 0.5 MG/0.5 ML SYR IV PRN ×2 (11:24→22:04)
--- NOTE | 2023-01-02 14:04 | Communication Note ---
Date of Service: January 02, 2023 Pt presented to [facility] w/ melena; symptomatic anemia. He is s/p EGD 12/31/[address] Wren - notable for a Dieulafoy lesion. This was treated with endoscopic therapy. His H/H along with BUN remained stable overnight. No further reported black stools. I went to evaluate the pt today for f/u of his EGD but he was not in his room on several occasions; was downstairs having a procedure. Recommendations: - Advance diet as tolerated - Protonix drip for total of 72 hours then PO BID - Carafate slurry 4 times daily for 10 days total - Avoid NSAIDS for another 4 days - Repeat upper endoscopy in 12 weeks; our office will arrange - Recall GI if needed. I have discussed the patient's management with the advanced practitioner. Please refer to the nurse practitioner's note for the documented findings and plan of care.
[2023-01-02] MEDS: SODIUM CHLORIDE 0.9% 1000ML 1,000 ML IV SCH (16:07)
[2023-01-02] MEDS: FINERENONE PO SCH (16:51)
--- NOTE | 2023-01-02 18:35 | Orthopedic Progress Note ---
Date of Service January 02, 2023 Assessment & Plan (1) Osteomyelitis of right foot: Plan: Patient seen, evaluated, and treated. Patient s/p right foot excision of bone day #5 (DOS:12/28/22) Wounds continues to demarcate Distal anterior foot wound margins appear darken and mild dusky. Appreciate Vascular consult No signs of infection were observed Dressing change with out incident. Wound care consult evaluate and treat for daily dressing changes Thank you for allowing me to participate in the care of this Patient. Admission and Anticipated Discharge Date Admission Date: December 27, 2022 Subjective Patient seen at bedside today for right foot and ankle wound. Patient status post right foot excision of non-viable bone Day #5 (DOS:12/28/22). He was seen by vascular this morning. He relates pain is decreasing. Review of Systems Review of Systems: All systems reviewed & are unremarkable except as noted in Subjective Physical Exam Constitutional: cooperative and comfortable Neck: trachea midline Respiratory: normal respiratory effort Cardiovascular: Vessels: posterior tibial pulses present and dorsalis pedis pulses present Musculoskeletal: Extremities: + foot abnormality Skin: + ulcer (Right foot and ankle Eschar with adjacent erythema) and + erythema (Right foot) Neurologic: moves all extremities (Absent epicritic sensation) Psychiatric: Orientation: alert and oriented x 3 Results & Data Vital Signs (Past 12 Hours) Vital Signs Temp Pulse Pulse Pulse Resp BP Pulse Ox 01/02/23 15:02 36.8 C 65 18 158/84 H 94 01/02/23 12:50 36.8 C 65 16 165/69 H 93 01/02/23 11:56 36.9 C 73 16 155/67 H 94 01/02/23 11:20 37 C 76 16 157/87 H 94 01/02/23 10:42 78 16 187/92 H 94 01/02/23 10:37 86 16 182/125 H 95 01/02/23 10:32 82 13 184/79 H 95 01/02/23 10:27 78 17 184/89 H 98 01/02/23 10:22 78 14 171/108 H 96 01/02/23 10:17 79 14 186/112 H 95 01/02/23 10:12 74 16 186/83 H 97 01/02/23 10:03 78 16 185/108 H 97 01/02/23 09:25 01/02/23 09:01 37.2 C 79 19 205/91 H 01/02/23 08:29 37.4 C 89 20 94 01/02/23 07:24 37.2 C 84 18 136/51 L 92 01/02/23 06:59 37.4 C 90 16 174/81 H 93 O2 Del Method O2 Flow Rate 01/02/23 15:02 Room Air 01/02/23 12:50 Room Air 01/02/23 11:56 Room Air 01/02/23 11:20 Room Air 01/02/23 10:42 Room Air 01/02/23 10:37 Oxymask 4 01/02/23 10:32 Oxymask 4 01/02/23 10:27 Oxymask 4 01/02/23 10:22 Oxymask 4 01/02/23 10:17 Oxymask 4 01/02/23 10:12 Oxymask 4 01/02/23 10:03 Oxymask 4 01/02/23 09:25 Room Air 01/02/23 09:01 01/02/23 08:29 Room Air 01/02/23 07:24 Room Air 01/02/23 06:59 Room Air
[2023-01-02] MEDS: DAPTOmycin 550 MG in SYRINGE 0 ML IV SCH (20:46)
--- NOTE | 2023-01-02 22:50 | Hospitalist Progress Note ---
Date of Service January 02, 2023 Assessment & Plan (1) Diabetic foot infection: Plan: Acute blood loss Anemia -Likely secondary to acute upper GI bleed. Heparin will be held. obtained upper GI endoscopy. input from GI: - Return patient to [facility] for ongoing care. - Clear liquid diet today. - Give Protonix (pantoprazole): 8 mg/hr IV by continuous infusion for 3 days. - Use sucralfate suspension 1 gram PO QID for 10 days. - Repeat upper endoscopy in 3 months for surveillance. - Avoid NSAIDs for 1 week - Would suggest holding anticoagulation for 3 days. -could possibly resume on 01/04 Unsure if Vascular will place IVC filter. Diabetic foot infection w/ osteomyelitis of R foot [facility] vascular surgery records obtained 12/29, added to chart. With poorly controlled DM. Recently admitted to [place] and discharged x2, most recently on doxycycline for MRSA with adjunct clindamycin added 12/26 by parole board member on follow-up and recommended for ER evaluation Patient expresses frustration with [facility] and [facility], preferred to be managed at [facility] and to establish with vascular here Given DFI with history of MRSA was admitted on Dapto/Zosyn - Prior Vascular Surgeon- [facility] Tasia Ho [facility]. 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 Farzana Dwyer [facility] Continue broad coverage for DFI with worsening infection, continue Zosyn/Dapto at this time. Surgical cultures are pending, prelim positive for Staphylococcus species Cultures were taken at [place] 12/26. Statin held while on Dapto Peripheral vascular disease With history of arterial bypass Partial records received. Additional records from [facility] pending. Per printed record review patient did have a US arterial Doppler 12/21 which showed mid distal right superficial femoral artery stenosis with intact but diminished waveforms distal to area of stenosis; 50% right MANAGED CARE DIRECTOR and 50% proximal right superficial femoral artery stenoses were noted. - MRI shows right cuneiform and metatarsal osteomyelitis. Podiatry following, anticipate surgical revision Acute DVT -12/28/2022 arterial Doppler RLE: 1. A graft extending from the common femoral artery to the calf is occluded. 2. There are focally elevated velocities within the common femoral artery and the proximal superficial femoral artery indicating high-grade stenosis. 3. There is a long segment of thrombosis involving the mid to distal superficial femoral artery with distal reconstitution. 4. There is one-vessel runoff to the foot. The posterior tibial artery is patent 5. The mid to distal anterior tibial artery, the peroneal artery, and the dorsalis pedis artery are occluded. Based on updated Dopplers above vascular was consulted. Heparin drip initiated, no bolus low normal gram to minimize bleeding postoperatively. Seen by vascular 12/29. Continue current care; if graft to be pursued would need prosthetic and will follow for antibiotic treatment and healing first. Likely arteriogram next week. Appreciate recommendations Smoking cessation counseling provided on admission. Atorvastatin held while on daptomycin hemoglobin has been steady. CKD 3 Admitting creatinine 1.67 Baseline creatinine around 1.3 Creatinine is downtrending, 1.5 on 12/29 Transaminitis Mild, with history of hyperlipidemia. Patient denies history of liver disease Reviewed [facility] vascular records in [place] records, no mention of underlying liver disease/hepatitis/cirrhosis. Given persistent transaminitis will obtain ultrasound and acute hepatitis panel Type II DM, acute hyperglycemia Admitting BSG 317. Hold home pioglitazone Lactate normal Suspect elevation in the setting of infection Admitted on basal bolus based on TDD with pharmacy glycemic consult - CF 25/Ratio 9 Basal 15 BID (dose reduce to 10u BID while NPO) History of TIA No residual deficits Continued on Plavix 75 mg daily, patient also takes this due to his peripheral vascular disease DVT prophylaxis: SCDs, heparin subcu post-op Diet: N.p.o. pending surgical intervention 12/28 Disposition: Medical/surgical CODE STATUS: Full (2) T2DM (type 2 diabetes mellitus): (3) TIA (transient ischemic attack): (4) PVD (peripheral vascular disease): Admission and Anticipated Discharge Date Admission Date: December 27, 2022 Subjective Patient reports no new sympoms. Review of Systems Review of Systems: All systems reviewed & are unremarkable except as noted in HPI & below Physical Exam Physical Exam: General: A&Ox3. NAD. Cooperative. HEENT: Atraumatic, normocephalic. Vision/hearing grossly intact Pulm: CTAB A&P. -wheezes, -rales, -rhonchi. Symmetrical chest rise. No increased work of breathing. No respiratory distress. Cardiac: RRR, -mrg. Radial pulses intact and symmetrical. Abdominal: Nontender, nondistended, soft. BS present. Extremities: Rlimb is wrapped in a postsurgical dressing to cover open surgical wound. Sensation of soft touch in hands is intact bilaterally, moves upper extremities equally. Hip flexion is intact bilaterally Results & Data Results & Data Vital Signs (Past 12 Hours) Vital Signs Temp Pulse Resp BP Pulse Ox O2 Del Method 01/02/23 21:10 Room Air 01/02/23 19:35 36.8 C 83 18 165/71 H 96 Room Air 01/02/23 15:02 36.8 C 65 18 158/84 H 94 Room Air 01/02/23 12:50 36.8 C 65 16 165/69 H 93 Room Air 01/02/23 11:56 36.9 C 73 16 155/67 H 94 Room Air 01/02/23 11:20 37 C 76 16 157/87 H 94 Room Air PG Care Time/CCT Total # of Minutes Spent Total Time Spent with Patient: Total time spent is greater than 50% in coordination of care (as documented) at patient's floor/unit and/or counseling patient: Coding Level of Care Code 63149 SUB INP/OBS CARE 2/35MIN Diagnoses Diabetic foot infection E11.628; L08.9 T2DM (type 2 diabetes mellitus) E11.9 TIA (transient ischemic attack) G45.9 PVD (peripheral vascular disease) I73.9
[2023-01-03] MEDS: ACETAMINOPHEN 500 MG TAB PO PRN (00:51)
[2023-01-03] MEDS: PANTOprazole 40 MG in DEXTROSE 5% 100 ML IV SCH ×3 (01:46→11:44)
[2023-01-03 06:19] LABS: Hemoglobin 7.4 g/dl (14.0-18.0); Mean Corpuscular Hemoglobin 33.3 pg (25.0-34.0); Mean Corpuscular Hgb Conc 33.6 g/dL (32.0-36.0); Mean Corpuscular Volume 99.1 fL (80.0-100.0); Mean Platelet Volume 9.2 fL (9.4-12.4); Nucleated RBC # (auto) 0.02 K/uL (0-0.12); Nucleated RBC % (auto) 0.2 %; Platelet Count 449 K/uL (130-400); RDW Coefficient of Variation 13.3 % (11.5-14.5); RDW Standard Deviation 47.4 fL (36.4-46.3); Red Blood Count 2.22 M/uL (4.70-6.10); White Blood Count 10.89 K/ul (4.8-10.8)
[2023-01-03 06:36] LABS: BUN Creatinine Ratio 9.3 (10-20); Calcium 8.5 mg/dl (8.6-10.3); Creatinine Clr Calc Pharmacy 57.7 ml/min; Est GFR (African American) 51.2 ml/min; Est GFR (Non-African American) 44.2 ml/min; Potassium 4.4 mmol/L (3.5-5.1)
--- NOTE | 2023-01-03 08:03 | Communication Note ---
Date of Service: January 03, [address] Waller. Currently no indications for IVC filter can be found in chart. No venous doppler was completed this admission. Please call if needed.
[2023-01-03] MEDS: SUCRALFATE 1 GM/10 ML UDC PO SCH ×4 (08:49→20:02)
[2023-01-03] MEDS: LANTUS PER UNIT CHARGE SQ SCH ×2 (08:50→21:19)
[2023-01-03] MEDS: ADVANCED PROBIOTIC 1250 MG CAPSULE PO SCH (08:50)
[2023-01-03] MEDS: INSULIN ASPART PER UNIT CHARGE SC SCH ×4 (08:50→21:18)
[2023-01-03] MEDS: GABAPENTIN 600 MG TAB PO SCH ×4 (08:50→20:02)
[2023-01-03] MEDS: ASCORBIC ACID 500 MG TAB PO SCH (08:50)
[2023-01-03] MEDS: cilostazoL 100 MG TAB PO SCH ×2 (08:50→20:02)
--- NOTE | 2023-01-03 10:18 | Pharmacy Report ---
Pharmacy Glycemic Short Note 2 - Date of Service January 03, 2023 - Glycemic Short BSG Results (Last 24 hours): 01/02/23 01/02/23 01/02/23 12:13 17:02 20:25 Glucose POC Glucose 157 H 199 H 201 H 01/03/23 01/03/23 05:44 07:58 Glucose 113 H POC Glucose 131 H OUTPATIENT ANTIDIABETIC REGIMEN: * Lantus (unknown dose) * Novolog (unknown dose) * HbA1c 7.1% on 01/01/23 ASSESSMENT: * BSGs yesterday were [id number] mg/dL. Patient received 55 units of insulin (36 units of basal and 19 units of bolus). * Fasting today is 131 mg/dL. * Continue 36 units of basal. * Tighten CR as BSGs trended upwards yesterday. BACKGROUND * 67 yo M w T2DM. Admitted 12/27 with diabetic foot infection. Pharmacy consulted 12/31 for hyperglycemia and also NPO. Did not make aggressive changes yesterday 2nd NPO, but now ordered a diet again and OK to increase Lantus. * Novolog tightened to weight-based moderate stress estimate yesterday but with slightly tighter correction factor. Will leave for now PLAN FOR INPATIENT GLYCEMIC CONTROL: * Basal insulin * Lantus 18 units SQ BID * Bolus insulin * NovoLog per scale ACHS or Q6hrs while NPO * Goal Range: Low 110 mg/dL - High 140 mg/dL * Correction Factor: 20 mg/dL/unit * Nutritional / Prandial insulin per carb ratio of 1 unit per 6 grams CHO consumed
[2023-01-03] MEDS ORDERED: Nursing to Pharmacy Communication SCH (11:45)
[2023-01-03] MEDS: FINERENONE PO SCH (17:03)
[2023-01-03] MEDS: traMADol HCL 50 MG TABLET PO PRN (17:51)
[2023-01-03] MEDS: DAPTOmycin 550 MG in SYRINGE 0 ML IV SCH (19:13)
[2023-01-03] MEDS: PANTOprazole 40 MG TAB PO SCH (20:02)
--- NOTE | 2023-01-03 21:25 | Hospitalist Progress Note ---
Date of Service January 03, 2023 Assessment & Plan (1) Diabetic foot infection: Plan: Acute blood loss Anemia -Likely secondary to acute upper GI bleed. Heparin will be held. obtained upper GI endoscopy. input from GI: - Return patient to [facility] for ongoing care. - Clear liquid diet today. - Give Protonix (pantoprazole): 8 mg/hr IV by continuous infusion for 3 days. - Use sucralfate suspension 1 gram PO QID for 10 days. - Repeat upper endoscopy in 3 months for surveillance. - Avoid NSAIDs for 1 week - Would suggest holding anticoagulation for 3 days. -could possibly resume on 01/04 As clot is arterial no need for IVC filter, discussed with vascular surgery, no indication for heparin. switch pantoprazole to PO extended daptomycin Diabetic foot infection w/ osteomyelitis of R foot [facility] vascular surgery records obtained 12/29, added to chart. With poorly controlled DM. Recently admitted to [place] and discharged x2, most recently on doxycycline for MRSA with adjunct clindamycin added 12/26 by sys dir on follow-up and recommended for ER evaluation Patient expresses frustration with [facility] and [facility], preferred to be managed at [facility] and to establish with vascular here Given DFI with history of MRSA was admitted on Dapto/Zosyn - Prior Vascular Surgeon- [facility] Tasia Ho [facility]. Medical Records Analyst Dr. Farzana Watt [place] Continue broad coverage for DFI with worsening infection, continue Zosyn/Dapto at this time. Surgical cultures are pending, prelim positive for Staphylococcus species Cultures were taken at [place] 12/26. Statin held while on Dapto Peripheral vascular disease With history of arterial bypass Partial records received. Additional records from [facility] Tasia pending. Per printed record review patient did have a US arterial Doppler 12/21 which showed mid distal right superficial femoral artery stenosis with intact but diminished waveforms distal to area of stenosis; 50% right PYROMETALLURGICAL ENGINEER and 50% proximal right superficial femoral artery stenoses were noted. - MRI shows right cuneiform and metatarsal osteomyelitis. Podiatry following, anticipate surgical revision Patient does not have a DVT -12/28/2022 arterial Doppler RLE: 1. A graft extending from the common femoral artery to the calf is occluded. 2. There are focally elevated velocities within the common femoral artery and the proximal superficial femoral artery indicating high-grade stenosis. 3. There is a long segment of thrombosis involving the mid to distal superficial femoral artery with distal reconstitution. 4. There is one-vessel runoff to the foot. The posterior tibial artery is patent 5. The mid to distal anterior tibial artery, the peroneal artery, and the dorsalis pedis artery are occluded. Based on updated Dopplers above vascular was consulted. Heparin drip initiated, no bolus low normal gram to minimize bleeding postoperatively. Seen by vascular 12/29. Continue current care; if graft to be pursued would need prosthetic and will follow for antibiotic treatment and healing first. Likely arteriogram next week. Appreciate recommendations Smoking cessation counseling provided on admission. Atorvastatin held while on daptomycin hemoglobin has been steady. CKD 3 Admitting creatinine 1.67 Baseline creatinine around 1.3 Creatinine is downtrending, 1.5 on 12/29 Transaminitis Mild, with history of hyperlipidemia. Patient denies history of liver disease Reviewed [facility] vascular records in [place] records, no mention of underlying liver disease/hepatitis/cirrhosis. Given persistent transaminitis will obtain ultrasound and acute hepatitis panel Type II DM, acute hyperglycemia Admitting BSG 317. Hold home pioglitazone Lactate normal Suspect elevation in the setting of infection Admitted on basal bolus based on TDD with pharmacy glycemic consult - CF 25/Ratio 9 Basal 15 BID (dose reduce to 10u BID while NPO) History of TIA No residual deficits Continued on Plavix 75 mg daily, patient also takes this due to his peripheral vascular disease DVT prophylaxis: SCDs, heparin subcu post-op Diet: N.p.o. pending surgical intervention 12/28 Disposition: Medical/surgical CODE STATUS: Full (2) T2DM (type 2 diabetes mellitus): (3) TIA (transient ischemic attack): (4) PVD (peripheral vascular disease): Admission and Anticipated Discharge Date Admission Date: December 27, 2022 Subjective Patient reports no new symptoms Review of Systems Review of Systems: All systems reviewed & are unremarkable except as noted in HPI & below Physical Exam Physical Exam: General: A&Ox3. NAD. Cooperative. HEENT: Atraumatic, normocephalic. Vision/hearing grossly intact Pulm: CTAB A&P. -wheezes, -rales, -rhonchi. Symmetrical chest rise. No increased work of breathing. No respiratory distress. Cardiac: RRR, -mrg. Radial pulses intact and symmetrical. Abdominal: Nontender, nondistended, soft. BS present. Extremities: Rlimb is wrapped in a postsurgical dressing to cover open surgical wound. Sensation of soft touch in hands is intact bilaterally, moves upper extremities equally. Hip flexion is intact bilaterally Results & Data Results & Data Vital Signs (Past 12 Hours) Vital Signs Temp Pulse Resp BP Pulse Ox O2 Del Method 01/03/23 19:57 37.1 C 88 18 145/68 H 95 Room Air 01/03/23 15:41 36.8 C 110 H 16 134/67 94 Room Air PG Care Time/CCT Total # of Minutes Spent Total Time Spent with Patient: Total time spent is greater than 50% in coordination of care (as documented) at patient's floor/unit and/or counseling patient: Coding Level of Care Code 78702 SUB INP/OBS CARE 2/35MIN Diagnoses Diabetic foot infection E11.628; L08.9 T2DM (type 2 diabetes mellitus) E11.9 TIA (transient ischemic attack) G45.9 PVD (peripheral vascular disease) I73.9
--- NOTE | 2023-01-03 22:10 | Orthopedic Progress Note ---
Date of Service January 03, 2023 Assessment & Plan (1) Osteomyelitis of right foot: Plan: Patient seen, evaluated, and treated. Patient s/p right foot excision of bone day #6 (DOS:12/28/22) Dressing change with out incident. Wound care consult evaluate and treat for daily dressing changes Patient will be scheduled for delayed primary closure of right foot. Thank you for allowing me to participate in the care of this Patient. Admission and Anticipated Discharge Date Admission Date: December 27, 2022 Subjective Patient seen at bedside. He notes reduced pain and discomfort to right foot and ankle. Review of Systems Review of Systems: All systems reviewed & are unremarkable except as noted in Subjective Physical Exam Constitutional: cooperative and comfortable Neck: trachea midline Respiratory: normal respiratory effort Cardiovascular: Vessels: posterior tibial pulses present and dorsalis pedis pulses present Musculoskeletal: Extremities: + foot abnormality Skin: + ulcer (Right foot and ankle wound) and + wound (Right foot wound) Neurologic: moves all extremities (Absent epicritic sensation) Psychiatric: Orientation: alert and oriented x 3 Results & Data Vital Signs (Past 12 Hours) Vital Signs Temp Pulse Resp BP Pulse Ox O2 Del Method 01/03/23 19:57 37.1 C 88 18 145/68 H 95 Room Air 01/03/23 15:41 36.8 C 110 H 16 134/67 94 Room Air
[2023-01-03] MEDS: HYDROmorphone INJ 0.5 MG/0.5 ML SYR IV PRN (22:58)
--- NOTE | 2023-01-04 06:46 | Orthopedic Consultation ---
Date of Consultation January 04, 2023 Assessment & Plan (1) Osteomyelitis of right foot: Patient seen, evaluated, and treated. Patient s/p right foot excision of bone day #7 (DOS:12/28/22) Dressing change with out incident. Wound care consult evaluate and treat for daily dressing changes Patient will be scheduled today for delayed primary closure of right foot, wound debridement of ankle and application of wound vac. Thank you for allowing me to participate in the care of this Patient. History of Present Illness Attending Physician: Perfecto [place] History of Present Illness Patient s/p right foot excision of bone day #7 (DOS:12/28/22) Allergies Allergy/AdvReac Type Severity Reaction Status Date / Time bee venom protein (honey bee) Allergy Severe Anaphylaxis Unverified 01/02/23 08:28 Home Medications Medication Instructions Recorded Confirmed Type acetaminophen 500 mg tablet 500 mg PO DAILY PRN Pain 12/27/22 12/27/22 History ascorbic acid (vitamin C) 500 mg 500 mg PO DAILY 12/27/22 12/27/22 History tablet atorvastatin 20 mg tablet 20 mg PO DAILY 12/27/22 12/27/22 History cholecalciferol (vitamin D3) 50 50 mcg PO DAILY 12/27/22 12/27/22 History mcg (2,000 unit) capsule (Vitamin D3) cilostazol 100 mg tablet 100 mg PO BID 12/27/22 12/27/22 History clindamycin HCl 300 mg capsule 300 mg PO Q6H 12/27/22 12/27/22 History clopidogrel 75 mg tablet 75 mg PO DAILY 12/27/22 12/27/22 History epinephrine 0.3 mg/0.3 mL 0.3 mg IM DIRECTED 12/27/22 12/27/22 History injection, auto-injector finerenone 10 mg tablet (Kerendia) 10 mg PO DAILY 12/27/22 12/27/22 History gabapentin 300 mg capsule 600 mg PO QID 12/27/22 12/27/22 History insulin aspart U-100 100 unit/mL 0 unit subcut DIRECTED 12/27/22 12/27/22 History (3 mL) subcutaneous pen (Novolog FlexPen U-100 Insulin aspart) insulin glargine 100 unit/mL (3 0 unit subcut QPM 12/27/22 12/27/22 History mL) subcutaneous pen (Lantus Solostar U-100 Insulin) lisinopril 40 mg tablet 40 mg PO HS 12/27/22 12/27/22 History multivitamin 1 tab PO DAILY 12/27/22 12/27/22 History pioglitazone 45 mg tablet 45 mg PO DAILY 12/27/22 12/27/22 History tramadol 50 mg tablet 50 mg PO BID PRN Pain 12/27/22 12/27/22 History vit C 250 mg-vit E 90 mg-zinc 40 1 cap PO DAILY 12/27/22 12/27/22 History mg-copper 1 [id number] capsule (PreserVision AREDS-2) Patient History Medical History (Updated 01/02/23 @ 08:17 by Lianne Blakely MD) CKD (chronic kidney disease) Diabetic foot infection 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 Melena Osteomyelitis of right foot PVD (peripheral vascular disease) T2DM (type 2 diabetes mellitus) TIA (transient ischemic attack) Surgical History History of femoropopliteal bypass Social History Smoking Status: Current every day smoker Tobacco Type: Cigarettes Second Hand Exposure: Yes; Do You Dip or Chew Tobacco: No; Tobacco Cessation Education Requested by Patient: No Hx Substance Use: No Preferred Language: Singaporean Communication Ability: Effective Veterinary Epidemiologist Required: No Beliefs That Will Affect Care: None Current Living Situation: Alone Other Information That Helps Us Care for You: No Feels Safe at Home: Yes Safety Concerns: Feels Safe At This Time Assistive Devices: Cane, Walker and Wheelchair Physical Exam Constitutional: cooperative and comfortable Neck: trachea midline Respiratory: normal respiratory effort Cardiovascular: Vessels: posterior tibial pulses present and dorsalis pedis pulses present Musculoskeletal: Extremities: + foot abnormality Skin: + ulcer (Right foot and ankle wound), + wound (Right foot wound) and + erythema (Right foot) Neurologic: moves all extremities (Absent epicritic sensation) Psychiatric: Orientation: alert and oriented x 3 Results & Data Vital Signs (Past 12 Hours) Vital Signs Temp Pulse Resp BP Pulse Ox O2 Del Method 01/03/23 19:57 37.1 C 88 18 145/68 H 95 Room Air
[2023-01-04 07:53] LABS: Basophils # (auto) 0.04 K/uL (0-0.2); Basophils % (auto) 0.3 %; Eosinophils # (auto) 0.21 K/uL (0-0.50); Eosinophils % (auto) 1.8 %; Hemoglobin 7.8 g/dl (14.0-18.0); Immature Granulocytes # (auto) 0.16 K/uL (0.01-0.20); Immature Granulocytes % (auto) 1.4 %; Lymphocytes # (auto) 2.46 K/uL (1.2-3.4); Lymphocytes % (auto) 21.3 %; Mean Corpuscular Hemoglobin 33.1 pg (25.0-34.0); Mean Corpuscular Hgb Conc 33.9 g/dL (32.0-36.0); Mean Corpuscular Volume 97.5 fL (80.0-100.0); Mean Platelet Volume 9.2 fL (9.4-12.4); Monocytes # (auto) 0.93 K/uL (0.11-0.59); Neutrophils # (auto) 7.77 K/uL (1.40-6.50); Neutrophils % (auto) 67.2 %; Nucleated RBC # (auto) 0.05 K/uL (0-0.12); Nucleated RBC % (auto) 0.4 %; Platelet Count 532 K/uL (130-400); RDW Coefficient of Variation 13.2 % (11.5-14.5); RDW Standard Deviation 46.5 fL (36.4-46.3); Red Blood Count 2.36 M/uL (4.70-6.10); White Blood Count 11.57 K/ul (4.8-10.8)
[2023-01-04 08:06] LABS: BUN Creatinine Ratio 9.4 (10-20); Calcium 8.5 mg/dl (8.6-10.3); Creatinine Clr Calc Pharmacy 58.1 ml/min; Est GFR (African American) 51.6 ml/min; Est GFR (Non-African American) 44.5 ml/min; Potassium 3.7 mmol/L (3.5-5.1)
[2023-01-04] MEDS: INSULIN ASPART PER UNIT CHARGE SC SCH ×3 (08:11→23:18)
[2023-01-04 08:20] LABS: RBC Morphology Unremarkable
[2023-01-04] MEDS: PANTOprazole 40 MG TAB PO SCH ×2 (08:28→21:03)
[2023-01-04] MEDS: cilostazoL 100 MG TAB PO SCH ×2 (08:29→21:03)
[2023-01-04] MEDS: GABAPENTIN 600 MG TAB PO SCH ×4 (08:29→21:03)
[2023-01-04] MEDS: SUCRALFATE 1 GM/10 ML UDC PO SCH ×4 (08:30→21:03)
[2023-01-04] MEDS: ASCORBIC ACID 500 MG TAB PO SCH (08:30)
[2023-01-04] MEDS: ADVANCED PROBIOTIC 1250 MG CAPSULE PO SCH (08:30)
[2023-01-04] MEDS: traMADol HCL 50 MG TABLET PO PRN (08:38)
--- NOTE | 2023-01-04 12:16 | Ultrasound Report ---
BILATERAL LOWER EXTREMITY VENOUS DOPPLER CLINICAL HISTORY: lower extremity edema COMPARISON STUDY: No previous studies for comparison. TECHNIQUE: Sonography of the deep venous system of the bilateral lower extremities was performed. Co mpression and augmentation were evaluated. FINDINGS: The bilateral common femoral, superficial femoral and popliteal veins were compressible. A ugmentation was normal. Flow was shown within the deep calf vessels. IMPRESSION: No evidence of deep venous thrombus within the bilateral lower extremities. ACT 112: Negative or not required by law. Electronically signed by: Yoseph Martinez M.D. 01/04/2023 12:13 PM
--- NOTE | 2023-01-04 13:37 | Anesthesiology Consultation ---
Date of Service January 04, 2023 Assessment & Plan (1) Encounter for pre-operative examination: Chart Review Chart Review: Acceptable Risk for Surgery and Patient NOT seen in Pre Admission Testing Consults Requested none History Surgery Operation Date: 12/28/22 09:40 Proposed Procedures p Right Foot Transmetatarsal Amputation - Gaston Novak DPM, MS Operation Date: 12/31/22 17:45 Proposed Procedures p EGD Hemostasis - Doroteo Wren DO Operation Date: 01/01/23 08:55 Proposed Procedures p Right Foot Wash Out Delayed Primary Closure - Gaston Novak DPM, MS Operation Date: 01/02/23 07:00 Proposed Procedures p Right Lower Extremity Arteriogram - Darwin Waller MD Operation Date: 01/02/23 16:30 Proposed Procedures p Esophagogastroduodenoscopy Dr Matute - Anusha Matute MD Operation Date: 01/04/23 08:20 Proposed Procedures p Delayed Right Foot Primary Closure and Wound Debridement, Possible Application of Wound Vac - Gaston Novak DPM, MS Operation Date: 01/06/23 12:30 Proposed Procedures p Right Femoral to Tibial Prosthetic Bypass - Darwin Waller MD Height/Weight Height: 6 ft 1 in Weight: 103.2 kg Allergies Allergy/AdvReac Type Severity Reaction Status Date / Time bee venom protein (honey bee) Allergy Severe Anaphylaxis Unverified 01/02/23 08:28 Medications Home Medications Medication Instructions Recorded Confirmed Last Taken acetaminophen 500 mg tablet 500 mg PO DAILY PRN Pain 12/27/22 12/27/22 Unknown ascorbic acid (vitamin C) 500 mg 500 mg PO DAILY 12/27/22 12/27/22 Unknown tablet atorvastatin 20 mg tablet 20 mg PO DAILY 12/27/22 12/27/22 Unknown cholecalciferol (vitamin D3) 50 50 mcg PO DAILY 12/27/22 12/27/22 Unknown mcg (2,000 unit) capsule (Vitamin D3) cilostazol 100 mg tablet 100 mg PO BID 12/27/22 12/27/22 Unknown clindamycin HCl 300 mg capsule 300 mg PO Q6H 12/27/22 12/27/22 Unknown clopidogrel 75 mg tablet 75 mg PO DAILY 12/27/22 12/27/22 Unknown epinephrine 0.3 mg/0.3 mL 0.3 mg IM DIRECTED 12/27/22 12/27/22 Unknown injection, auto-injector finerenone 10 mg tablet (Kerendia) 10 mg PO DAILY 12/27/22 12/27/22 Unknown gabapentin 300 mg capsule 600 mg PO QID 12/27/22 12/27/22 Unknown insulin aspart U-100 100 unit/mL 0 unit subcut DIRECTED 12/27/22 12/27/22 Unknown (3 mL) subcutaneous pen (Novolog FlexPen U-100 Insulin aspart) insulin glargine 100 unit/mL (3 0 unit subcut QPM 12/27/22 12/27/22 Unknown mL) subcutaneous pen (Lantus Solostar U-100 Insulin) lisinopril 40 mg tablet 40 mg PO HS 12/27/22 12/27/22 Unknown multivitamin 1 tab PO DAILY 12/27/22 12/27/22 Unknown pioglitazone 45 mg tablet 45 mg PO DAILY 12/27/22 12/27/22 Unknown tramadol 50 mg tablet 50 mg PO BID PRN Pain 12/27/22 12/27/22 Unknown vit C 250 mg-vit E 90 mg-zinc 40 1 cap PO DAILY 12/27/22 12/27/22 Unknown mg-copper 1 [id number] capsule (PreserVision AREDS-2) Active Medications Generic Name Dose Route Start Last Admin Trade Name Ronel PRN Reason Stop Dose Admin Acetaminophen 500 mg 12/27/22 19:58 01/03/23 00:51 Acetaminophen 500 Mg Tab PO 01/26/23 19:57 500 mg DAILY PRN Administration Pain Ascorbic Acid 500 mg 12/28/22 09:00 01/04/23 08:30 Ascorbic Acid 500 Mg Tab PO 01/27/23 08:59 500 mg DAILY ZINA Administration Cilostazol 100 mg 12/27/22 21:00 01/04/23 08:29 Cilostazol 100 Mg Tab PO 01/26/23 20:59 100 mg BID ZINA Administration Gabapentin 600 mg 12/27/22 21:00 01/04/23 12:09 Gabapentin 600 Mg Tab PO 01/26/23 20:59 600 mg QID ZINA Administration Hydromorphone HCl 0.5 mg 12/28/22 10:57 01/03/23 22:58 Hydromorphone Inj 0.5 Mg/0.5 Ml Syr IV 01/11/23 10:56 0.5 mg Q4H PRN Administration Breakthrough Pain Daptomycin 550 mg/ Syringe 11 mls @ 5.5 mls/min 12/30/22 20:00 01/03/23 19:13 IV 01/08/23 19:59 5.5 mls/min Q24H ZINA Administration Protocol Insulin Aspart 0 units 12/31/22 21:00 01/04/23 12:53 Insulin Aspart Per Unit Charge SC 01/30/23 20:59 Not Given ACHS ZINA Protocol Insulin Glargine 18 units 01/02/23 21:00 01/03/23 21:19 Lantus Per Unit Charge SQ 02/01/23 20:59 18 units BID ZINA Administration Protocol Lactobacillus Acidophilus 2 cap 12/30/22 13:15 01/04/23 08:30 Advanced Probiotic 1250 Mg Capsule PO 01/29/23 13:14 2 cap DAILY ZINA Administration Finerenone [Kerendia 1 each 12/31/22 17:00 01/03/23 17:03 ] Tablet~Non- PO 01/30/23 16:59 1 tab Formulary Patient's DAILY@1700 ZINA Administration Own Med Pantoprazole Sodium 40 mg 01/03/23 21:00 01/04/23 08:28 Pantoprazole 40 Mg Tab PO 02/02/23 20:59 40 mg BID ZINA Administration Sucralfate 1 gm 12/31/22 21:00 01/04/23 12:09 Sucralfate 1 Gm/10 Ml Udc PO 01/30/23 20:59 1 gm QID ZINA Administration Tramadol HCl 50 mg 12/27/22 19:58 01/04/23 08:38 Tramadol Hcl 50 Mg Tablet PO 01/26/23 19:57 50 mg BID PRN Administration Pain NPO Date Last Intake of Fluids: 01/02/23 Time Last Intake of Fluids: 07:00 Last Intake of Fluids Comment: sips Date Last Intake of Solids: 01/01/23 Time Last Intake of Solids: 18:00 Past Medical History Medical History CKD (chronic kidney disease) Diabetic foot infection 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 Melena Osteomyelitis of right foot PVD (peripheral vascular disease) T2DM (type 2 diabetes mellitus) TIA (transient ischemic attack) Past Surgical History Surgical History History of femoropopliteal bypass Social History Smoking Status: Current every day smoker tobacco type: cigarettes Do You Dip or Chew Tobacco: No Hx Substance Use: No substance use type: does not use Physical Exam Vital Signs Last Vital Signs Temp 98.2 F 01/04/23 07:53 Pulse 88 01/04/23 07:53 Resp 16 01/04/23 07:53 BP 162/69 H 01/04/23 07:53 Pulse Ox 93 01/04/23 07:53 O2 Del Method Room Air 01/04/23 08:00 O2 Flow Rate 4 01/02/23 10:37 Testing Laboratory Results 01/04/23 07:15 01/04/23 07:15 APTT 37.9 Seconds (21.0-31.0) H 12/31/22 13:50 Hemoglobin A1c 7.1 % (4.5-5.6) H 01/01/23 06:18 Urine Color Yellow 12/27/22 16:10 Urine Appearance Clear (Clear) 12/27/22 16:10 Urine pH 5.5 (4.5-7.5) 12/27/22 16:10 Ur Specific Magazine 1.019 (1.000-1.030) 12/27/22 16:10 Urine Protein 1+ (Negative) H 12/27/22 16:10 Urine Glucose (UA) Negative (Negative) 12/27/22 16:10 Urine Ketones Negative (Negative) 12/27/22 16:10 Urine Nitrite Negative (Negative) 12/27/22 16:10 Ur Leukocyte Esterase Negative (Negative) 12/27/22 16:10 Urine WBC (Auto) 1-5 /hpf (0-5) 12/27/22 16:10 Urine RBC (Auto) 0-4 /hpf (0-4) 12/27/22 16:10 U Hyaline Cast (Auto) 1-5 /lpf (0-5) 12/27/22 16:10 U Epithel Cells (Auto) 10-20 /lpf (0-5) H 12/27/22 16:10 Urine Bacteria (Auto) Negative (Negative) 12/27/22 16:10 12/30/22 09:20 Aerobic Blood Culture - Final Blood No growth in Aerobic bottle after 5 days. Anaerobic Blood Culture - Final No growth in Anaerobic bottle after 5 days. 12/30/22 09:20 Aerobic Blood Culture - Final Blood No growth in Aerobic bottle after 5 days. Anaerobic Blood Culture - Final No growth in Anaerobic bottle after 5 days. 12/29/22 12:13 Aerobic Blood Culture - Final Blood No growth in Aerobic bottle after 5 days. Anaerobic Blood Culture - Final No growth in Anaerobic bottle after 5 days. 12/29/22 12:13 Aerobic Blood Culture - Final Blood No growth in Aerobic bottle after 5 days. Anaerobic Blood Culture - Final No growth in Anaerobic bottle after 5 days. 12/28/22 18:03 Gram Stain - Final Foot,Right Aerobic and Anaerobic Culture - Final Staph aureus MRSA 12/27/22 14:29 Aerobic Blood Culture - Final Blood No growth in Aerobic bottle after 5 days. Anaerobic Blood Culture - Final No growth in Anaerobic bottle after 5 days. 12/27/22 14:29 Aerobic Blood Culture - Final Blood No growth in Aerobic bottle after 5 days. Anaerobic Blood Culture - Final No growth in Anaerobic bottle after 5 days. 01/04/23 01/04/23 01/04/23 12:50 12:35 07:50 POC Glucose 142 H 136 H 120 H Electrocardiogram Date: 12/28/22 Findings: + NSR @ (@ 58)
--- NOTE | 2023-01-04 14:49 | Pharmacy Report ---
Pharmacy Glycemic Short Note 2 - Date of Service January 04, 2023 - Glycemic Short BSG Results (Last 24 hours): 01/03/23 01/03/23 01/04/23 17:00 20:47 07:15 Glucose 111 H POC Glucose 163 H 193 H 01/04/23 01/04/23 01/04/23 07:50 12:35 12:50 Glucose POC Glucose 120 H 136 H 142 H OUTPATIENT ANTIDIABETIC REGIMEN: * Lantus (unknown dose) * Novolog (unknown dose) * HbA1c 7.1% on 01/01/23 ASSESSMENT: 01/04 * Patient received total of 68 units of insulin yesterday, of which 36 units were basal * Fasting BSG 111 mg/dL - patient NPO today for possible wound vac, held AM basal * BSGs in 140s at lunch, continues NPO - has not yet gone to OR * Plan to have reduced dose for basal at HS (reduced 50-60%) 01/03 * BSGs yesterday were [phone] mg/dL. Patient received 55 units of insulin (36 units of basal and 19 units of bolus). * Fasting today is 131 mg/dL. * Continue 36 units of basal. * Tighten CR as BSGs trended upwards yesterday. BACKGROUND * 67 yo M w T2DM. Admitted 12/27 with diabetic foot infection. Pharmacy consulted 12/31 for hyperglycemia and also NPO. Did not make aggressive changes yesterday 2nd NPO, but now ordered a diet again and OK to increase Lantus. * Novolog tightened to weight-based moderate stress estimate yesterday but with slightly tighter correction factor. Will leave for now PLAN FOR INPATIENT GLYCEMIC CONTROL: * Basal insulin * Lantus 12-18 units HS (NPO status) * Plan to reevaluate basal 01/05 AM * Bolus insulin * NovoLog per scale ACHS or Q6hrs while NPO * Goal Range: Low 110 mg/dL - High 140 mg/dL * Correction Factor: 20 mg/dL/unit * Nutritional / Prandial insulin per carb ratio of 1 unit per 5 grams CHO consumed
[2023-01-04] MEDS ORDERED: Nursing to Pharmacy Communication SCH ×2 (16:45→22:30)
[2023-01-04] MEDS ORDERED: ONDANSETRON INJ 2 MG/ML 2 ML VIAL IV PRN (17:12)
[2023-01-04] MEDS ORDERED: fentaNYL citrate PF 100 MCG/2 ML VIAL IV PRN (17:12)
[2023-01-04] MEDS ORDERED: ePHEDrine sulfate 50 MG/ML AMP IV PRN (17:12)
[2023-01-04] MEDS ORDERED: ATROPINE SULFATE 0.1 MG/ML 10ML SYR IV PRN (17:12)
--- NOTE | 2023-01-04 17:17 | History & Physical Bridge Note ---
Date of Service January 04, 2023 History & Physical Bridge Note I have examined the patient, reviewed the History & Physical and in the interval since the performance of the History & Physical I have noted the following changes of clinical significance: no changes noted
[2023-01-04] MEDS ORDERED: PROPOFOL IV EMULSION 10 MG/ML 20 ML VIAL IV ONE (17:20)
[2023-01-04] MEDS ORDERED: LIDOCAINE 2% 2 ML VIAL/AMP(20MG/ML) INFIL ONE (17:20)
[2023-01-04] MEDS ORDERED: MIDAZOLAM HCL 1 MG/ML 2ML VIAL ONE (17:20)
[2023-01-04] MEDS ORDERED: fentaNYL citrate PF 100 MCG/2 ML VIAL ONE (17:20)
[2023-01-04] MEDS ORDERED: ceFAZolin 2,000 MG/15 ML IV PUSH IV ONE (17:22)
[2023-01-04] MEDS: FINERENONE PO SCH (17:22)
[2023-01-04] MEDS ORDERED: BUPIVACAINE 0.5 % 5 MG/1 ML MPF 30ML VIAL ONE (17:39)
[2023-01-04] MEDS ORDERED: INSULIN ASPART PER UNIT CHARGE SC SCH (18:00)
--- NOTE | 2023-01-04 18:57 | Post Operative Brief Note ---
Immediate Post Op Note v1 Date of Surgery January 04, 2023 Pre & Post Diagnosis Operation Date: 01/06/23 12:30 <No data on this case meets the specified criteria> I identified the patient and participated in the time-out.: Yes Procedure Operation Date: 01/06/23 12:30 <No data on this case meets the specified criteria> Surgeon Gaston Novak, MARLEN[place], MS Mill House Supervisor None Estimated Blood Loss 0 Findings Consistent with Post-Op Diagnosis necrotic tissue Specimens Deep culture swab - micro Tarsal metatarsal joint Right foot - Micro Anesthesia Type RN Sedation
--- NOTE | 2023-01-04 19:14 | Anesthesiology Progress Note ---
Date of Service January 04, 2023 Anesthesia Post Procedure Vital Signs Vital Signs: Temp Pulse Pulse Resp BP Pulse Ox O2 Del Method 01/04/23 19:05 76 15 171/75 H 99 Room Air 01/04/23 18:55 77 18 169/79 H 100 Nasal Cannula 01/04/23 18:48 36.4 C L 82 20 161/72 H 98 Nasal Cannula 01/04/23 16:59 36.8 C 83 20 155/76 H 92 Room Air 01/04/23 15:25 36.8 C 80 16 163/72 H 93 Room Air 01/04/23 08:00 Room Air 01/04/23 07:53 36.8 C 88 16 162/69 H 93 Room Air 01/03/23 19:57 37.1 C 88 18 145/68 H 95 Room Air O2 Flow Rate 01/04/23 19:05 3 01/04/23 18:55 3 01/04/23 18:48 3 01/04/23 16:59 01/04/23 15:25 01/04/23 08:00 01/04/23 07:53 01/03/23 19:57 Pain Intensity Right Foot: Pain Intensity: 7 Transfer of Care Handoff Completed per policy Notes Mental Status: alert / awake / arousable Patient Amnestic to Procedure: Yes Nausea / Vomiting: adequately controlled Pain: adequately controlled Airway Patency, RR, SpO2: stable & adequate BP & HR: stable & adequate Hydration State: stable & adequate Anesthetic Complications: no major complications apparent and Pt Satisfied with anesthetic care
[2023-01-04] MEDS ORDERED: LANTUS PER UNIT CHARGE SQ SCH (21:00)
[2023-01-04] MEDS: DAPTOmycin 550 MG in SYRINGE 0 ML IV SCH (21:04)
--- NOTE | 2023-01-04 21:56 | Operative Report ---
Post Operative Report Pre & Post Diagnosis Operation Date: 01/06/23 12:30 <No data on this case meets the specified criteria> I identified the patient and participated in the time-out.: Yes Procedure Operation Date: 01/06/23 12:30 <No data on this case meets the specified criteria> Surgeon Gaston Novak, DPM, MS Oil Change Technician None Estimated Blood Loss 0 Findings Consistent with Post-Op Diagnosis Necrotic right foot Specimens Tarso metatarsal joint Description of Procedure History of present illness: Patient is a 67 year old male who is seen for treatment of right foot necrosis. Patient is status post 1 week transmetatarsal amputation and right ankle wound debridement DOS: 12/28/22. Wound was left open due to infection. Further significant demarcation has occurred. Patient presents for continued resection of non viable bone with application of wound vac. Patient is scheduled for fem-pop bypass on 01/06/23. All questions answered. Discussed procedure in detail and postoperative recovery. All potential risks, benefits, complications, alternatives, rehab, potential for incomplete relief of symptoms, need for further surgery, DVT, PE, , persistent pain, swelling, scarring, weakness, neurovascular, wound complications and potential for amputations were discussed with patient. Unwanted outcomes such as, but not limited to were reviewed including under correction, overcorrection, return of deformity, infection. All questions were answered. Patient has decided to proceed with procedure as indicated. Preoperative diagnosis: right foot necrosis Postoperative diagnosis: right foot necrosis Name of operation: 1.) Resection of Right foot transmetatarsal amputation, with delayed primary closure 2.) Right ankle wound debridement 3.) Application of wound vac Right foot Surgeon Dr. Novak Oil Change Technician: None Anesthesia: Monitored anesthesia care Hemostasis: Anatomic dissection, Pneumatic calf tourniquet Estimated blood loss: 0 cc Procedure in detail: Under mild sedation the patient was brought in the operating room placed on the operating table in supine position. A pneumatic thigh tourniquet was then placed about the patient's right thigh. Following IV sedation local anesthesia was obtained about the right ankle utilizing 20 cc of 0.5% Marcaine plain. The foot was then prepped scrubbed and draped in usual aseptic manner. An Esmarch bandage was utilized to exsanguinate the patient's right foot and the pneumatic calf tourniquet was then inflated. Attention was then directed to the right gangrenous necrosis foot where an open TMA is exposed. Necrotic bone and soft tissue is noted. Utilizing a sharp, sterile, #15 blade significant removal of non-viable soft tissue was removed from the forefoot. Necrotic dermis is reduced through necrotic subcutaneous tissue down to necrotic exposed metatarsals. At this time a sagittal saw is utilized to transversely cut through the midtarsals. The resected bone is placed on the back table, labeled and sent to pathology. Attention was directed to the right anterior ankle wound. The wound measures approximately 2.5 x 3 x 0.5 cm. Using a sharp, sterile, #15 blade the wound was debrided down to subcutaneous tissue. The patient then underwent copious irrigation with the use of 3 L of lactate ringer. All participants in the surgery removed their top layer of gloves and only clean instrumentation was used from here on out. Negative pressure wound vac therapy was then applied to the right foot and ankle wounds. The vac was set to 125mmHg continuous. The Patient tolerated the procedure and anesthesia well. He was transferred to recovery room vital signs stable. After postoperative monitoring the patient will be re admitted to the floor resuming all pre operative orders. I attest to the content of the Intraoperative Record and any orders documented therein. Any exceptions are noted below.
--- NOTE | 2023-01-04 23:08 | Hospitalist Progress Note ---
Date of Service January 04, 2023 Assessment & Plan (1) Diabetic foot infection: Plan: Acute blood loss Anemia -secondary to acute upper GI bleed. Heparin will be held. D/W vascular, no indication to restart heparin obtained upper GI endoscopy. input from GI: completed 3 days of IV protonix, switched to PO protonix Use sucralfate suspension 1 gram PO QID for 10 days. Repeat upper endoscopy in 3 months for surveillance. Avoid NSAIDs for 1 week Diabetic foot infection w/ osteomyelitis of R foot [facility] vascular surgery records obtained 12/29, added to chart. With poorly controlled DM. Recently admitted to [facility] and discharged x2, most recently on doxycycline for MRSA with adjunct clindamycin added 12/26 by calciminer on follow-up and recommended for ER evaluation Patient expresses frustration with [facility] and [facility], preferred to be managed at [facility] and to establish with vascular here Given DFI with history of MRSA was admitted on Dapto/Zosyn - Prior Vascular Surgeon- [facility] Tasia Ho [facility]. Human Anatomy Teacher Dr. Farzana Dwyer [facility] Continue broad coverage for DFI with worsening infection, continue Zosyn/Dapto at this time. Surgical cultures are pending, prelim positive for Staphylococcus species Cultures were taken at [facility] 12/26. Statin held while on Dapto extended daptomycin Fem-popliteal bypass on Monday Hoping wounds will improve, and can close at a later date, on wound vac. Peripheral vascular disease With history of arterial bypass Partial records received. Additional records from [facility] pending. Per printed record review patient did have a US arterial Doppler 12/21 which showed mid distal right superficial femoral artery stenosis with intact but diminished waveforms distal to area of stenosis; 50% right [employer]ICINE and 50% proximal right superficial femoral artery stenoses were noted. - MRI shows right cuneiform and metatarsal osteomyelitis. Podiatry following, anticipate surgical revision Patient does not have a DVT ruled out by venous study. -12/28/2022 arterial Doppler RLE: 1. A graft extending from the common femoral artery to the calf is occluded. 2. There are focally elevated velocities within the common femoral artery and the proximal superficial femoral artery indicating high-grade stenosis. 3. There is a long segment of thrombosis involving the mid to distal superficial femoral artery with distal reconstitution. 4. There is one-vessel runoff to the foot. The posterior tibial artery is patent 5. The mid to distal anterior tibial artery, the peroneal artery, and the dorsalis pedis artery are occluded. Based on updated Dopplers above vascular was consulted. Heparin drip initiated, no bolus low normal gram to minimize bleeding postoperatively. Seen by vascular 12/29. Continue current care; if graft to be pursued would need prosthetic and will follow for antibiotic treatment and healing first. Likely arteriogram next week. Appreciate recommendations Smoking cessation counseling provided on admission. Atorvastatin held while on daptomycin hemoglobin has been steady. CKD 3 Admitting creatinine 1.67 Baseline creatinine around 1.3 Creatinine is downtrending, 1.5 on 12/29 Transaminitis Mild, with history of hyperlipidemia. Patient denies history of liver disease Reviewed [facility] vascular records in [place] records, no mention of underlying liver disease/hepatitis/cirrhosis. Given persistent transaminitis will obtain ultrasound and acute hepatitis panel Type II DM, acute hyperglycemia Admitting BSG 317. Hold home pioglitazone Lactate normal Suspect elevation in the setting of infection Admitted on basal bolus based on TDD with pharmacy glycemic consult - CF 25/Ratio 9 Basal 15 BID (dose reduce to 10u BID while NPO) History of TIA No residual deficits Continued on Plavix 75 mg daily, patient also takes this due to his peripheral vascular disease DVT prophylaxis: SCDs, heparin subcu post-op Disposition: Medical/surgical CODE STATUS: Full (2) T2DM (type 2 diabetes mellitus): (3) TIA (transient ischemic attack): (4) PVD (peripheral vascular disease): Admission and Anticipated Discharge Date Admission Date: December 27, 2022 Subjective Patient seen after returning from OR. Patient reports no new symptoms. Review of Systems Review of Systems: All systems reviewed & are unremarkable except as noted in HPI & below Physical Exam Physical Exam: General: A&Ox3. NAD. Cooperative. HEENT: Atraumatic, normocephalic. Vision/hearing grossly intact Pulm: CTAB A&P. -wheezes, -rales, -rhonchi. Symmetrical chest rise. No increased work of breathing. No respiratory distress. Cardiac: RRR, -mrg. Radial pulses intact and symmetrical. Abdominal: Nontender, nondistended, soft. BS present. Extremities: Rlimb iwith wound vac. Sensation of soft touch in hands is intact bilaterally, moves upper extremities equally. Hip flexion is intact bilaterally Results & Data Results & Data Vital Signs (Past 12 Hours) Vital Signs Temp Pulse Pulse Resp BP Pulse Ox O2 Del Method 01/04/23 20:10 Room Air 01/04/23 22:31 36.8 C 86 18 184/95 H 96 Nasal Cannula 01/04/23 21:11 36.9 C 84 16 198/44 H 92 Nasal Cannula 01/04/23 20:47 36.6 C 90 16 204/77 H 86 L Room Air 01/04/23 20:03 36.6 C 86 18 184/71 H 98 Nasal Cannula 01/04/23 19:05 76 15 171/75 H 99 Room Air 01/04/23 18:55 77 18 169/79 H 100 Nasal Cannula 01/04/23 18:48 36.4 C L 82 20 161/72 H 98 Nasal Cannula 01/04/23 16:59 36.8 C 83 20 155/76 H 92 Room Air 01/04/23 15:25 36.8 C 80 16 163/72 H 93 Room Air O2 Flow Rate 01/04/23 20:10 01/04/23 22:31 01/04/23 21:11 1 01/04/23 20:47 01/04/23 20:03 01/04/23 19:05 3 01/04/23 18:55 3 01/04/23 18:48 3 01/04/23 16:59 01/04/23 15:25 PG Care Time/CCT Total # of Minutes Spent Total Time Spent with Patient: Total time spent is greater than 50% in coordination of care (as documented) at patient's floor/unit and/or counseling patient: Coding Level of Care Code 12413 SUB INP/OBS CARE 2/35MIN Diagnoses Diabetic foot infection E11.628; L08.9 T2DM (type 2 diabetes mellitus) E11.9 TIA (transient ischemic attack) G45.9 PVD (peripheral vascular disease) I73.9
[2023-01-05] MEDS: INSULIN ASPART PER UNIT CHARGE SC SCH ×5 (00:17→21:05)
--- NOTE | 2023-01-05 01:35 | Ultrasound Report ---
Exam(s): US VENOUS BILATERAL LOWER EXTREMITIES EXAM: US Duplex Bilateral Lower Extremities Veins CLINICAL HISTORY: Reason for exam: arterial thrombosis/ immobility, no anticoag/bleed. TECHNIQUE: Real-time duplex ultrasound scan of the bilateral lower extremity veins integrating B-mode two-dimensional vascular structure, Doppler spectral analysis, color flow Doppler imaging and compression. COMPARISON: No relevant prior studies available. FINDINGS: Right deep veins: Unremarkable. No DVT in the right common femoral, femoral, proximal deep femoral or popliteal veins. The veins demonstrate normal color flow, are normally compressible, with normal phasic flow and/or augmentation response. The interrogated calf veins are patent. Right superficial veins: The right saphenofemoral junction is not visible, suggesting prior vein harvesting or ablation. Left deep veins: Unremarkable. No DVT in the left common femoral, femoral, proximal deep femoral or popliteal veins. The veins demonstrate normal color flow, are normally compressible, with normal phasic flow and/or augmentation response. The interrogated calf veins are patent. Left superficial veins: Unremarkable. No thrombus in the saphenofemoral junction. Soft tissues: No acute findings. No popliteal cyst. IMPRESSION: No evidence for deep vein thrombosis involving the bilateral lower extremities. Electronically signed by: Nikolai Marti MD 01/05/23 01:34 AM
[2023-01-05] MEDS: HEPARIN SOD 5,000 UNIT/0.5 ML VIAL SQ SCH ×3 (05:42→21:02)
[2023-01-05 08:03] LABS: Hematocrit (blood only) 24.9 % (42.0-52.0); Hemoglobin 8.3 g/dl (14.0-18.0); Mean Corpuscular Hemoglobin 33.2 pg (25.0-34.0); Mean Corpuscular Hgb Conc 33.3 g/dL (32.0-36.0); Mean Corpuscular Volume 99.6 fL (80.0-100.0); Mean Platelet Volume 9.3 fL (9.4-12.4); Nucleated RBC # (auto) 0.02 K/uL (0-0.12); Nucleated RBC % (auto) 0.1 %; Platelet Count 629 K/uL (130-400); RDW Coefficient of Variation 13.8 % (11.5-14.5)
[2023-01-05] MEDS: ASCORBIC ACID 500 MG TAB PO SCH (08:06)
[2023-01-05] MEDS: ADVANCED PROBIOTIC 1250 MG CAPSULE PO SCH (08:07)
[2023-01-05] MEDS: PANTOprazole 40 MG TAB PO SCH ×2 (08:07→21:04)
[2023-01-05] MEDS: SUCRALFATE 1 GM/10 ML UDC PO SCH ×4 (08:07→21:03)
[2023-01-05] MEDS: GABAPENTIN 600 MG TAB PO SCH ×4 (08:08→21:04)
[2023-01-05] MEDS: cilostazoL 100 MG TAB PO SCH ×2 (08:08→21:04)
[2023-01-05 08:21] LABS: Albumin Level 2.9 gm/dl (3.4-5.0); BUN Creatinine Ratio 10.5 (10-20); Bilirubin Direct 0.1 mg/dl (0-0.2); Bilirubin,Total 0.3 mg/dl (0.2-1.0); Calcium 8.6 mg/dl (8.6-10.3); Est GFR (African American) 59.1 ml/min; Magnesium 1.8 mg/dl (1.7-2.4); Phosphorus 3.5 mg/dl (2.5-4.9); Potassium 4.2 mmol/L (3.5-5.1); Total Protein 6.6 gm/dl (6.0-8.3)
--- NOTE | 2023-01-05 08:42 | Hospitalist Progress Note ---
Date of Service January 05, 2023 Assessment & Plan (1) Diabetic foot infection: Plan: Attending: Dr. Rodriguez Acute blood loss Anemia -secondary to acute upper GI bleed. Heparin will be held. D/W vascular, no indication to restart heparin obtained upper GI endoscopy. input from GI: completed 3 days of IV protonix, switched to PO protonix Use sucralfate suspension 1 gram PO QID for 10 days. Repeat upper endoscopy in 3 months for surveillance. Avoid NSAIDs for 1 week Diabetic foot infection w/ osteomyelitis of R foot [facility] vascular surgery records obtained 12/29, added to chart. With poorly controlled DM. Recently admitted to [facility] and discharged x2, most recently on doxycycline for MRSA with adjunct clindamycin added 12/26 by customer management specialist on follow-up and recommended for ER evaluation Patient expresses frustration with [facility] and [facility], preferred to be managed at [facility] and to establish with vascular here Given DFI with history of MRSA was admitted on Dapto/Zosyn - Prior Vascular Surgeon- [facility] Tasia Ho [facility]. Counterperson Dr. Farzana Dwyer [place] Continue broad coverage for DFI with worsening infection, continue Zosyn/Dapto at this time. Surgical cultures are pending, prelim positive for Staphylococcus species Cultures were taken at [facility] 12/26. Statin held while on Dapto extended daptomycin Fem-popliteal bypass scheduled for tomorrow, 01/06/2023 Hoping wounds will improve, and can close at a later date, on wound vac. Peripheral vascular disease With history of arterial bypass Partial records received. [facility] Per printed record review patient did have a US arterial Doppler 12/21 which showed mid distal right superficial femoral artery stenosis with intact but diminished waveforms distal to area of stenosis; 50% right FAMILY SERVICES WORKER and 50% proximal right superficial femoral artery stenoses were noted. - MRI shows right cuneiform and metatarsal osteomyelitis. Podiatry following, anticipate surgical revision Patient does not have a DVT ruled out by venous study. -12/28/2022 arterial Doppler RLE: 1. A graft extending from the common femoral artery to the calf is occluded. 2. There are focally elevated velocities within the common femoral artery and the proximal superficial femoral artery indicating high-grade stenosis. 3. There is a long segment of thrombosis involving the mid to distal superficial femoral artery with distal reconstitution. 4. There is one-vessel runoff to the foot. The posterior tibial artery is patent 5. The mid to distal anterior tibial artery, the peroneal artery, and the dorsalis pedis artery are occluded. Based on updated Dopplers above vascular was consulted. Heparin drip initiated, no bolus low normal gram to minimize bleeding postoperatively. Seen by vascular 12/29. Continue current care; if graft to be pursued would need prosthetic and will follow for antibiotic treatment and healing first. Likely arteriogram next week. Appreciate recommendations Smoking cessation counseling provided on admission. Atorvastatin held while on daptomycin hemoglobin has been steady. CKD 3 Admitting creatinine 1.67 Baseline creatinine around 1.3 Creatinine is downtrending, 1.5 on 12/29 and is now stable at 1.43 Transaminitis Mild, with history of hyperlipidemia. Patient denies history of liver disease Reviewed [facility] vascular records in [place] records, no mention of underlying liver disease/hepatitis/cirrhosis. Given persistent transaminitis will obtain ultrasound and acute hepatitis panel Type II DM, acute hyperglycemia Admitting BSG 317. Hold home pioglitazone Lactate normal Suspect elevation in the setting of infection Admitted on basal bolus based on TDD with pharmacy glycemic consult - CF 25/Ratio 9 Basal 15 BID (dose reduce to 10u BID while NPO) History of TIA No residual deficits Continued on Plavix 75 mg daily, patient also takes this due to his peripheral vascular disease DVT prophylaxis: SCDs, heparin subcu post-op Disposition: Medical/surgical CODE STATUS: Full (2) T2DM (type 2 diabetes mellitus): (3) TIA (transient ischemic attack): (4) PVD (peripheral vascular disease): Plan Keep patient n.p.o. tonight after midnight for vascular procedures tomorrow. Patient is aware. Nursing also aware. Admission and Anticipated Discharge Date Admission Date: December 27, 2022 Subjective Attending: Dr. Rodriguez This is a 67-year-old male admitted 12/27/2022 for diabetic foot infection. Patient has significant peripheral vascular disease. Dr. Waller from vascular surgery as well as Dr. Novak from [facility] podiatry have been consulted. Patient underwent transmetatarsal amputation and right ankle wound debridement 12/28/2022. Wound was left open secondary to infection. Patient was taken back to operating theater 01/04/2023 for closure. Patient is afebrile and vital signs are stable at this time. Hemoglobin has improved to 8.3 g/Maria Isabel. No record of transfusion this admission After review of chart this morning, diet was advanced Patient denies any pain from yesterday's procedure. Wound VAC closure device was placed this morning without difficulty. Patient indicates that he is scheduled to go to the OR tomorrow with Dr. Waller. This was confirmed with the OR scheduling. Exact time is not available at this time. We will make patient n.p.o. after midnight. He is aware Review of Systems Review of Systems: A total of 10 systems was reviewed and is negative other than as listed in the HPI Physical Exam Physical Exam: GENERAL : No acute distress EYES: No icterus, gaze conjugate NOSE: No evidence of epistaxis MOUTH: No lesions or candidiasis NECK: Supple LUNGS: CTA B/L, no wheezes, rales or rhonchi HEART: Regular, rate controlled ABDOMEN: Soft, NT, ND, BS Present EXTREMITIES: Forefoot of right foot closed yesterday by Dr. Novak. Wound VAC closure devices in place. No pain or tenderness. NEURO: A&OX3 Results & Data Results & Data Vital Signs (Past 12 Hours) Vital Signs Temp Pulse Resp BP Pulse Ox O2 Del Method O2 Flow Rate 01/05/23 08:11 37.4 C 107 H 20 155/61 H 96 Room Air 01/05/23 07:01 37.4 C 103 H 16 163/83 H 95 Room Air 01/05/23 00:11 36.8 C 86 16 133/69 94 Nasal Cannula 1 01/04/23 22:31 36.8 C 86 18 184/95 H 96 Nasal Cannula 01/04/23 21:11 36.9 C 84 16 198/44 H 92 Nasal Cannula 1 01/04/23 20:47 36.6 C 90 16 204/77 H 86 L Room Air Critical Care Results & Data Vital Signs (Past 12 Hours) Vital Signs Temp Pulse Resp BP Pulse Ox O2 Del Method O2 Flow Rate 01/05/23 08:11 37.4 C 107 H 20 155/61 H 96 Room Air 01/05/23 07:01 37.4 C 103 H 16 163/83 H 95 Room Air 01/05/23 00:11 36.8 C 86 16 133/69 94 Nasal Cannula 1 01/04/23 22:31 36.8 C 86 18 184/95 H 96 Nasal Cannula 01/04/23 21:11 36.9 C 84 16 198/44 H 92 Nasal Cannula 1 01/04/23 20:47 36.6 C 90 16 204/77 H 86 L Room Air Lab & Micro Results (Past 24 Hours) RBC 2.50 M/uL (4.70-6.10) L 01/05/23 WBC 14.00 K/ul (4.8-10.8) H 01/05/23 Hgb 8.3 g/dl (14.0-18.0) L 01/05/23 Hct 24.9 % (42.0-52.0) L 01/05/23 MCV 99.6 fL (80.0-100.0) 01/05/23 MCH 33.2 pg (25.0-34.0) 01/05/23 MCHC 33.3 g/dL (32.0-36.0) 01/05/23 RDW Standard Deviation 50.0 fL (36.4-46.3) H 01/05/23 RDW Coefficient of Variation 13.8 % (11.5-14.5) 01/05/23 Plt Count 629 K/uL (130-400) H 01/05/23 MPV 9.3 fL (9.4-12.4) L 01/05/23 Nucleated Red Blood Cells % (auto) 0.1 % 01/05 Nucleated RBC Absolute Count (auto) 0.02 K/uL (0-0.12) 12/18 0 Na 137 mmol/L (136-145) 01/05/23 K 4.2 mmol/L (3.5-5.1) 01/05/23 Cl 104 mmol/L (98-107) 01/05/23 CO2 25 mmol/L (21-32) 01/05/23 Anion Gap 8 (3-11) 01/05/23 BUN 15 mg/dl (6-23) 01/05/23 Creatinine 1.43 mg/dl (0.6-1.4) H 01/05/23 Estimated GFR ( Amer) 59.1 ml/min 01/05/23 Estimated GFR (Non-Af Amer) 51.0 ml/min 01/05/23 BUN/Creatinine Ratio 10.5 (10-20) 01/05/23 Glu 142 mg/dl (70-99(Fasting)) H 01/05/23 Ca 8.6 mg/dl (8.6-10.3) 01/05/23 Phosphorus Level 3.5 mg/dl (2.5-4.9) 01/05/23 Total Bilirubin 0.3 mg/dl (0.2-1.0) 01/05/23 Direct Bilirubin 0.1 mg/dl (0-0.2) 01/05/23 AST 41 U/L (13-39) H 01/05/23 ALT 76 U/L (7-52) H 01/05/23 Alkaline Phosphatase 97 U/L (34-104) 01/05/23 TP 6.6 gm/dl (6.0-8.3) 01/05/23 Albumin 2.9 gm/dl (3.4-5.0) L 01/05/23 Mg 1.8 mg/dl (1.7-2.4) 01/05/23 07:15 Calcium Level 8.6 mg/dl (8.6-10.3) 01/05/23 07:15 Microbiology 12/30/22 09:20 Aerobic Blood Culture - Final Blood No growth in Aerobic bottle after 5 days. Anaerobic Blood Culture - Final No growth in Anaerobic bottle after 5 days. 12/30/22 09:20 Aerobic Blood Culture - Final Blood No growth in Aerobic bottle after 5 days. Anaerobic Blood Culture - Final No growth in Anaerobic bottle after 5 days. Diagnostic Findings (Past 24 Hours) Venous Doppler Study 01/04/23 09:15 BILATERAL LOWER EXTREMITY VENOUS DOPPLER CLINICAL HISTORY: lower extremity edema COMPARISON STUDY: No previous studies for comparison. TECHNIQUE: Sonography of the deep venous system of the bilateral lower extremities was performed. Compression and augmentation were evaluated. FINDINGS: The bilateral common femoral, superficial femoral and popliteal veins were compressible. Augmentation was normal. Flow was shown within the deep calf vessels. IMPRESSION: No evidence of deep venous thrombus within the bilateral lower extremities. ACT 112: Negative or not required by law. Electronically signed by: Yoseph Martinez M.D. 01/04/2023 12:13 PM Venous Doppler Study 01/04/23 23:09 Exam(s): US VENOUS BILATERAL LOWER EXTREMITIES EXAM: US Duplex Bilateral Lower Extremities Veins CLINICAL HISTORY: Reason for exam: arterial thrombosis/ immobility, no anticoag/bleed. TECHNIQUE: Real-time duplex ultrasound scan of the bilateral lower extremity veins integrating B-mode two-dimensional vascular structure, Doppler spectral analysis, color flow Doppler imaging and compression. COMPARISON: No relevant prior studies available. FINDINGS: Right deep veins: Unremarkable. No DVT in the right common femoral, femoral, proximal deep femoral or popliteal veins. The veins demonstrate normal color flow, are normally compressible, with normal phasic flow and/or augmentation response. The interrogated calf veins are patent. Right superficial veins: The right saphenofemoral junction is not visible, suggesting prior vein harvesting or ablation. Left deep veins: Unremarkable. No DVT in the left common femoral, femoral, proximal deep femoral or popliteal veins. The veins demonstrate normal color flow, are normally compressible, with normal phasic flow and/or augmentation response. The interrogated calf veins are patent. Left superficial veins: Unremarkable. No thrombus in the saphenofemoral junction. Soft tissues: No acute findings. No popliteal cyst. IMPRESSION: No evidence for deep vein thrombosis involving the bilateral lower extremities. Electronically signed by: Nikolai Marti MD 01/05/23 01:34 AM I & O Totals 24 Hours 01/04/23 01/05/23 01/06/23 06:59 06:59 06:59 Intake Total 800 / 800 600 / 600 Output Total 1000 / 1000 1500 / 1500 Balance -200 / -200 -900 / -900 Cumulative 12/27/22 13:37 thru 01/05/23 06:05 Intake Total 204542.799 Output Total 61715 Balance 892766.799 RT Ventilator Mngmt (Last Documented) Ventilator Ordered Settings Respiratory Rate 20 01/05/23 08:11 Ventilator - PT Measurements Respiratory Rate 20 PG Care Time/CCT Total # of Minutes Spent Total Time Spent with Patient: Total time spent is greater than 50% in coordination of care (as documented) at patient's floor/unit and/or counseling patient: Coding Level of Care Code 29818 SUB INP/OBS CARE 1/25MIN Diagnoses Diabetic foot infection E11.628; L08.9 T2DM (type 2 diabetes mellitus) E11.9 TIA (transient ischemic attack) G45.9 PVD (peripheral vascular disease) I73.9 Time Spent (min) 20
[2023-01-05] MEDS: LANTUS PER UNIT CHARGE SQ SCH ×2 (08:49→21:04)
[2023-01-05] MEDS: FINERENONE PO SCH (16:56)
[2023-01-05] MEDS: DAPTOmycin 550 MG in SYRINGE 0 ML IV SCH (20:56)
[2023-01-06] MEDS ORDERED: Nursing to Pharmacy Communication SCH ×2 (01:15→16:45)
[2023-01-06] MEDS: HEPARIN SOD 5,000 UNIT/0.5 ML VIAL SQ SCH ×3 (06:02→21:54)
[2023-01-06] MEDS: INSULIN ASPART PER UNIT CHARGE SC SCH ×4 (06:03→21:55)
[2023-01-06] MEDS: GABAPENTIN 600 MG TAB PO SCH ×4 (08:52→21:56)
[2023-01-06] MEDS: PANTOprazole 40 MG TAB PO SCH ×2 (08:53→21:56)
[2023-01-06] MEDS: cilostazoL 100 MG TAB PO SCH ×2 (08:53→21:56)
[2023-01-06] MEDS: ADVANCED PROBIOTIC 1250 MG CAPSULE PO SCH (08:53)
[2023-01-06] MEDS: ASCORBIC ACID 500 MG TAB PO SCH (08:53)
[2023-01-06] MEDS: SUCRALFATE 1 GM/10 ML UDC PO SCH ×4 (08:53→21:54)
[2023-01-06] MEDS ORDERED: LANTUS PER UNIT CHARGE SC ONE (09:00)
--- NOTE | 2023-01-06 09:21 | History & Physical Bridge Note ---
Date of Service January 06, 2023 History & Physical Bridge Note Patient for a right femoral to posterior tibial artery bypass today. I have discussed the risks options and benefits of the procedure with the patient. The patient understands the risks options and benefits and agrees to the procedure. I have examined the patient, reviewed the History & Physical and in the interval since the performance of the History & Physical I have noted the following changes of clinical significance: no changes noted
--- NOTE | 2023-01-06 09:48 | Anesthesiology Consultation ---
Date of Service January 06, 2023 Assessment & Plan (1) Encounter for pre-operative examination: Plan cbc stat preop blood readily available Chart Review Chart Review: Acceptable Risk for Surgery ASA ASA4 Proposed Anesthesia Anesthesia Type: General Anesthesia Line Insertion: Arterial line Risk / Benefits Reviewed With: PT / POA / Parent / Guardian, Accepts Plan and Informed Consent Obtained History Surgery Operation Date: 12/28/22 09:40 Proposed Procedures p Right Foot Transmetatarsal Amputation - Gaston Novak DPM, MS Operation Date: 12/31/22 17:45 Proposed Procedures p EGD Hemostasis - Doroteo Wren DO Operation Date: 01/01/23 08:55 Proposed Procedures p Right Foot Wash Out Delayed Primary Closure - Gaston Novak DPM, MS Operation Date: 01/02/23 07:00 Proposed Procedures p Right Lower Extremity Arteriogram - Darwin Waller MD Operation Date: 01/02/23 16:30 Proposed Procedures p Esophagogastroduodenoscopy Dr Matute - Anusha Matute MD Operation Date: 01/04/23 08:20 Proposed Procedures p Delayed Right Foot Primary Closure and Wound Debridement, Possible Application of Wound Vac - Gaston Novak DPM, MS Operation Date: 01/06/23 11:10 Proposed Procedures p Right Femoral to Tibial Prosthetic Bypass - Darwin Waller MD Height/Weight Height: 6 ft 1 in Weight: 103.2 kg Allergies Allergy/AdvReac Type Severity Reaction Status Date / Time bee venom protein (honey bee) Allergy Severe Anaphylaxis Unverified 01/02/23 08:28 Medications Home Medications Medication Instructions Recorded Confirmed Last Taken acetaminophen 500 mg tablet 500 mg PO DAILY PRN Pain 12/27/22 12/27/22 Unknown ascorbic acid (vitamin C) 500 mg 500 mg PO DAILY 12/27/22 12/27/22 Unknown tablet atorvastatin 20 mg tablet 20 mg PO DAILY 12/27/22 12/27/22 Unknown cholecalciferol (vitamin D3) 50 50 mcg PO DAILY 12/27/22 12/27/22 Unknown mcg (2,000 unit) capsule (Vitamin D3) cilostazol 100 mg tablet 100 mg PO BID 12/27/22 12/27/22 Unknown clindamycin HCl 300 mg capsule 300 mg PO Q6H 12/27/22 12/27/22 Unknown clopidogrel 75 mg tablet 75 mg PO DAILY 12/27/22 12/27/22 Unknown epinephrine 0.3 mg/0.3 mL 0.3 mg IM DIRECTED 12/27/22 12/27/22 Unknown injection, auto-injector finerenone 10 mg tablet (Kerendia) 10 mg PO DAILY 12/27/22 12/27/22 Unknown gabapentin 300 mg capsule 600 mg PO QID 12/27/22 12/27/22 Unknown insulin aspart U-100 100 unit/mL 0 unit subcut DIRECTED 12/27/22 12/27/22 Unknown (3 mL) subcutaneous pen (Novolog FlexPen U-100 Insulin aspart) insulin glargine 100 unit/mL (3 0 unit subcut QPM 12/27/22 12/27/22 Unknown mL) subcutaneous pen (Lantus Solostar U-100 Insulin) lisinopril 40 mg tablet 40 mg PO HS 12/27/22 12/27/22 Unknown multivitamin 1 tab PO DAILY 12/27/22 12/27/22 Unknown pioglitazone 45 mg tablet 45 mg PO DAILY 12/27/22 12/27/22 Unknown tramadol 50 mg tablet 50 mg PO BID PRN Pain 12/27/22 12/27/22 Unknown vit C 250 mg-vit E 90 mg-zinc 40 1 cap PO DAILY 12/27/22 12/27/22 Unknown mg-copper 1 [id number] capsule (PreserVision AREDS-2) Active Medications Generic Name Dose Route Start Last Admin Trade Name Freq PRN Reason Stop Dose Admin Acetaminophen 500 mg 12/27/22 19:58 01/03/23 00:51 Acetaminophen 500 Mg Tab PO 01/26/23 19:57 500 mg DAILY PRN Administration Pain Ascorbic Acid 500 mg 12/28/22 09:00 01/06/23 08:53 Ascorbic Acid 500 Mg Tab PO 01/27/23 08:59 Not Given DAILY ZINA Cilostazol 100 mg 12/27/22 21:00 01/06/23 08:53 Cilostazol 100 Mg Tab PO 01/26/23 20:59 Not Given BID ZINA Gabapentin 600 mg 12/27/22 21:00 01/06/23 08:52 Gabapentin 600 Mg Tab PO 01/26/23 20:59 600 mg QID ZINA Administration Heparin Sodium (Porcine) 7,500 units 01/05/23 06:00 01/06/23 06:02 Heparin Sod 5,000 Unit/0.5 Ml Vial SQ 02/04/23 05:59 7,500 units Q8 ZINA Administration Hydralazine HCl 5 mg 12/29/22 11:41 01/04/23 20:48 Hydralazine Hcl 20 Mg/Ml Vial IV 01/28/23 11:44 5 mg Q6H PRN Administration SBP >180 Hydromorphone HCl 0.5 mg 12/28/22 10:57 01/03/23 22:58 Hydromorphone Inj 0.5 Mg/0.5 Ml Syr IV 01/11/23 10:56 0.5 mg Q4H PRN Administration Breakthrough Pain Daptomycin 550 mg/ Syringe 11 mls @ 5.5 mls/min 12/30/22 20:00 01/05/23 20:56 IV 01/08/23 19:59 5.5 mls/min Q24H ZINA Administration Protocol Insulin Aspart 0 units 01/06/23 06:00 01/06/23 06:03 Insulin Aspart Per Unit Charge SC 02/05/23 05:59 5 units Q6 [facility] Administration Protocol Insulin Glargine 18 units 01/05/23 09:00 01/05/23 21:04 Lantus Per Unit Charge SQ 02/04/23 08:59 18 units BID [facility] Administration Protocol Lactobacillus Acidophilus 2 cap 12/30/22 13:15 01/06/23 08:53 Advanced Probiotic 1250 Mg Capsule PO 01/29/23 13:14 Not Given DAILY [facility] Finerenone [Kerendia 1 each 12/31/22 17:00 01/05/23 16:56 ] Tablet~Non- PO 01/30/23 16:59 Not Given Formulary Patient's DAILY@1700 [facility] Own Med Pantoprazole Sodium 40 mg 01/03/23 21:00 01/06/23 08:53 Pantoprazole 40 Mg Tab PO 02/02/23 20:59 40 mg BID ZINA Administration Sucralfate 1 gm 12/31/22 21:00 01/06/23 08:53 Sucralfate 1 Gm/10 Ml Udc PO 01/30/23 20:59 Not Given QID ZINA Tramadol HCl 50 mg 12/27/22 19:58 01/04/23 08:38 Tramadol Hcl 50 Mg Tablet PO 01/26/23 19:57 50 mg BID PRN Administration Pain NPO Date Last Intake of Fluids: 01/05/23 Time Last Intake of Fluids: 23:59 Last Intake of Fluids Comment: Sips and meds Date Last Intake of Solids: 01/05/23 Time Last Intake of Solids: 23:59 Last Intake of Solids Comment: Medications; Otherwise NPO Past Medical History Medical History (Updated 01/06/23 @ 09:45 by Kezia Greco DO) CKD (chronic kidney disease) stage 3 Diabetic foot infection 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 GI bleed Melena Osteomyelitis of right foot PVD (peripheral vascular disease) T2DM (type 2 diabetes mellitus) TIA (transient ischemic attack) no residual deficits Transaminitis Exercise / Class Metabolic Activity III < 4 Walking/Shop/Light housework Past Surgical History Surgical History (Updated 01/06/23 @ 09:45 by Kezia Greco DO) History of esophagogastroduodenoscopy (EGD) History of femoral angiogram RLE History of femoropopliteal bypass History of orthopedic surgery R foot metatarsal amp, R foot I+D, R foot revision and wound vac application Past Anesthesia History No Hx of Anesthesia Complications and No Family Hx of Anesthesia Complications Social History Smoking Status: Current every day smoker tobacco type: cigarettes Do You Dip or Chew Tobacco: No Hx Substance Use: No substance use type: does not use Physical Exam Vital Signs Last Vital Signs Temp 36.9 C 01/06/23 10:31 Pulse 90 01/06/23 10:31 Resp 18 01/06/23 10:31 BP 127/69 01/06/23 10:31 Pulse Ox 93 01/06/23 10:31 O2 Del Method Room Air 01/06/23 10:31 O2 Flow Rate 1 01/05/23 00:11 Constitutional + obese ENMT Mouth: + edentulous; no TMJ abnormality Thyromental Distance: > or= 3.5 Finger Breadths Mallampati Class: II Neck normal visual inspection, trachea midline and + facial hair; neck extension not limited Respiratory normal respiratory effort Auscultation: lungs clear to auscultation bilaterally Cardiovascular Rate/Rhythm: regular rate and regular rhythm Heart Sounds: no murmur Musculoskeletal Spine: normal cervical ROM Extremities: full ROM of extremities Neurologic moves all extremities Psychiatric Orientation: alert and oriented x 3 Testing Laboratory Results 01/05/23 07:15 APTT 37.9 Seconds (21.0-31.0) H 12/31/22 13:50 Hemoglobin A1c 7.1 % (4.5-5.6) H 01/01/23 06:18 Urine Color Yellow 12/27/22 16:10 Urine Appearance Clear (Clear) 12/27/22 16:10 Urine pH 5.5 (4.5-7.5) 12/27/22 16:10 Ur Specific [place] 1.019 (1.000-1.030) 12/27/22 16:10 Urine Protein 1+ (Negative) H 12/27/22 16:10 Urine Glucose (UA) Negative (Negative) 12/27/22 16:10 Urine Ketones Negative (Negative) 12/27/22 16:10 Urine Nitrite Negative (Negative) 12/27/22 16:10 Ur Leukocyte Esterase Negative (Negative) 12/27/22 16:10 Urine WBC (Auto) 1-5 /hpf (0-5) 12/27/22 16:10 Urine RBC (Auto) 0-4 /hpf (0-4) 12/27/22 16:10 U Hyaline Cast (Auto) 1-5 /lpf (0-5) 12/27/22 16:10 U Epithel Cells (Auto) 10-20 /lpf (0-5) H 12/27/22 16:10 Urine Bacteria (Auto) Negative (Negative) 12/27/22 16:10 Blood Type A Positive 01/05/23 15:02 Antibody Screen NEGATIVE 01/05/23 15:02 12/30/22 09:20 Aerobic Blood Culture - Final Blood No growth in Aerobic bottle after 5 days. Anaerobic Blood Culture - Final No growth in Anaerobic bottle after 5 days. 12/30/22 09:20 Aerobic Blood Culture - Final Blood No growth in Aerobic bottle after 5 days. Anaerobic Blood Culture - Final No growth in Anaerobic bottle after 5 days. 12/29/22 12:13 Aerobic Blood Culture - Final Blood No growth in Aerobic bottle after 5 days. Anaerobic Blood Culture - Final No growth in Anaerobic bottle after 5 days. 12/29/22 12:13 Aerobic Blood Culture - Final Blood No growth in Aerobic bottle after 5 days. Anaerobic Blood Culture - Final No growth in Anaerobic bottle after 5 days. 12/28/22 18:03 Gram Stain - Final Foot,Right Aerobic and Anaerobic Culture - Final Staph aureus MRSA 12/27/22 14:29 Aerobic Blood Culture - Final Blood No growth in Aerobic bottle after 5 days. Anaerobic Blood Culture - Final No growth in Anaerobic bottle after 5 days. 12/27/22 14:29 Aerobic Blood Culture - Final Blood No growth in Aerobic bottle after 5 days. Anaerobic Blood Culture - Final No growth in Anaerobic bottle after 5 days. 01/06/23 01/06/23 10:27 05:47 POC Glucose 145 H 230 H Electrocardiogram Date: 12/28/22 Findings: + MALICKR @ (@ 78)
[2023-01-06] MEDS ORDERED: LIDOCAINE 2% 2 ML VIAL/AMP(20MG/ML) INFIL ONE (10:20)
[2023-01-06] MEDS ORDERED: ROCURONIUM BROMIDE 10 MG/ML 5 ML VIAL IV ONE (10:20)
[2023-01-06] MEDS ORDERED: PROPOFOL IV EMULSION 10 MG/ML 20 ML VIAL IV ONE (10:20)
[2023-01-06] MEDS ORDERED: fentaNYL citrate PF 100 MCG/2 ML VIAL ONE ×3 (10:21→14:10)
[2023-01-06] MEDS ORDERED: MIDAZOLAM HCL 1 MG/ML 2ML VIAL ONE (10:21)
[2023-01-06] MEDS ORDERED: ALBUT/IPRATROP 3MG/0.5MG NEB 3 ML VIAL NEB STA (10:34)
[2023-01-06] MEDS ORDERED: fentaNYL citrate PF 100 MCG/2 ML VIAL IV PRN (10:38)
[2023-01-06] MEDS ORDERED: ePHEDrine sulfate 50 MG/ML AMP IV PRN (10:38)
[2023-01-06] MEDS ORDERED: ATROPINE SULFATE 0.1 MG/ML 10ML SYR IV PRN (10:38)
[2023-01-06] MEDS ORDERED: HYDROmorphone INJ 1 MG/ML SYRINGE IV PRN (10:38)
[2023-01-06] MEDS ORDERED: ONDANSETRON INJ 2 MG/ML 2 ML VIAL IV PRN (10:38)
[2023-01-06 10:39] LABS: Basophils # (auto) 0.04 K/uL (0-0.2); Basophils % (auto) 0.3 %; Eosinophils # (auto) 0.26 K/uL (0-0.50); Hematocrit (blood only) 26.7 % (42.0-52.0); Hemoglobin 8.7 g/dl (14.0-18.0); Immature Granulocytes % (auto) 1.5 %; Lymphocytes # (auto) 2.16 K/uL (1.2-3.4); Lymphocytes % (auto) 16.2 %; Mean Corpuscular Hemoglobin 32.5 pg (25.0-34.0); Mean Corpuscular Hgb Conc 32.6 g/dL (32.0-36.0); Mean Corpuscular Volume 99.6 fL (80.0-100.0); Mean Platelet Volume 9.3 fL (9.4-12.4); Monocytes # (auto) 1.12 K/uL (0.11-0.59); Monocytes % (auto) 8.4 %; Neutrophils # (auto) 9.54 K/uL (1.40-6.50); Neutrophils % (auto) 71.6 %; Nucleated RBC # (auto) 0.03 K/uL (0-0.12); Nucleated RBC % (auto) 0.2 %; Platelet Count 708 K/uL (130-400); RDW Standard Deviation 50.1 fL (36.4-46.3); Red Blood Count 2.68 M/uL (4.70-6.10); White Blood Count 13.32 K/ul (4.8-10.8)
[2023-01-06] MEDS ORDERED: PAPAVERINE HCL INJ 30 MG/ML 2 ML VIAL ONE (11:00)
[2023-01-06] MEDS ORDERED: LIDOCAINE 1% LOCAL 20 ML VIAL ONE (11:00)
[2023-01-06] MEDS ORDERED: HEPARIN (PORCINE) 1000 UNIT/ML 10 ML (CATH LAB USE ONLY) ONE (11:00)
[2023-01-06] MEDS ORDERED: BUPIVACAINE/EPINEPHRINE 0.5% MPF 1:200,000 30 ML VIAL ONE (11:00)
[2023-01-06] MEDS ORDERED: ceFAZolin 330 MG/ML 1 GM VIAL ONE (11:01)
[2023-01-06] MEDS ORDERED: THROMBIN 5000 UNITS KIT ONE (11:01)
[2023-01-06] MEDS ORDERED: GELATIN SPONGE SZ 100 ONE (11:01)
[2023-01-06] MEDS ORDERED: HEPARIN SOD (PORCINE) 1000 UNIT/ML ONE (11:39)
[2023-01-06] MEDS ORDERED: THROMBIN FOR SOLN 20000 UNIT KIT ONE (11:50)
[2023-01-06] MEDS ORDERED: ONDANSETRON INJ 2 MG/ML 2 ML VIAL ONE (12:53)
[2023-01-06] MEDS ORDERED: ESMOLOL HCL INJ 10 MG/ML 10ML VIAL IV ONE (12:53)
[2023-01-06] MEDS ORDERED: PHENYLEPHRINE HCL 10 MG/ML VIAL ONE (12:53)
[2023-01-06] MEDS ORDERED: PROTAMINE SULFATE 10 MG/ML 5 ML VIAL IV ONE (13:47)
[2023-01-06] MEDS ORDERED: NEOSTIGMINE METHYLSULFATE 1 MG/ML 10ML VIAL ONE (14:07)
[2023-01-06] MEDS ORDERED: GLYCOPYRROLATE 0.2 MG/ML VIAL ONE (14:07)
--- NOTE | 2023-01-06 14:30 | Pharmacy Report ---
Pharmacy Glycemic Short Note 2 - Date of Service January 06, 2023 - Glycemic Short BSG Results (Last 24 hours): 01/05/23 01/05/23 01/06/23 17:01 20:43 05:47 POC Glucose 143 H 190 H 230 H 01/06/23 10:27 POC Glucose 145 H OUTPATIENT ANTIDIABETIC REGIMEN: * Lantus (unknown dose) * Novolog (unknown dose) * HbA1c 7.1% on 01/01/23 ASSESSMENT: 01/06/23 * BSGs yesterday were [phone] mg/dL and fasting today is 230 mg/dL. Blood sugars higher due to less basal on 01/04/23 * Patient received 73 units of insulin yesterday (36 units of basal and 37 units of bolus). Patient is NPO today. * Since fasting will remain elevated, will give Lantus 15 units this AM due to NPO status. Otherwise continue Lantus 18 units BID. * Continue Novolog. 01/04 * Patient received total of 68 units of insulin yesterday, of which 36 units were basal * Fasting BSG 111 mg/dL - patient NPO today for possible wound vac, held AM basal * BSGs in 140s at lunch, continues NPO - has not yet gone to OR * Plan to have reduced dose for basal at HS (reduced 50-60%) 01/03 * BSGs yesterday were [phone] mg/dL. Patient received 55 units of insulin (36 units of basal and 19 units of bolus). * Fasting today is 131 mg/dL. * Continue 36 units of basal. * Tighten CR as BSGs trended upwards yesterday. BACKGROUND * 67 yo M w T2DM. Admitted 12/27 with diabetic foot infection. Pharmacy consulted 12/31 for hyperglycemia and also NPO. Did not make aggressive changes yesterday 2nd NPO, but now ordered a diet again and OK to increase Lantus. * Novolog tightened to weight-based moderate stress estimate yesterday but with slightly tighter correction factor. Will leave for now PLAN FOR INPATIENT GLYCEMIC CONTROL: * Basal insulin * Lantus 18 units SQ BID * Bolus insulin * NovoLog per scale ACHS or Q6hrs while NPO * Goal Range: Low 110 mg/dL - High 140 mg/dL * Correction Factor: 20 mg/dL/unit * Nutritional / Prandial insulin per carb ratio of 1 unit per 5 grams CHO consumed
--- NOTE | 2023-01-06 14:36 | Post Operative Brief Note ---
Immediate Post Op Note v1 Date of Surgery January 06, 2023 Pre & Post Diagnosis Operation Date: 01/06/23 11:10 Pre-Op Diagnosis: Gangrene right foot Post-Op Diagnosis: Gangrene right foot I identified the patient and participated in the time-out.: Yes Procedure Operation Date: 01/06/23 11:10 Actual Procedures p Right posterior Femoral to Tibial Prosthetic Bypass(Right) - Darwin Waller MD Surgeon Darwin Waller MD Staff Command And Control Officer Evan,PAC Estimated Blood Loss 350 Findings Consistent with Post-Op Diagnosis Specimens Deep culture swab - micro Tarsal metatarsal joint Right foot - Micro Drains Byrd Catheter (16 turkish 10mL balloon Byrd catheter inserted prior to start of procedure by Paola Fam) Anesthesia Type General Complications none Disposition Accompanied Patient To Recovery: No Disposition: Recovery Room
--- NOTE | 2023-01-06 14:37 | Operative Report ---
Post Operative Report Pre & Post Diagnosis Operation Date: 01/06/23 11:10 Pre-Op Diagnosis: Gangrene right foot Post-Op Diagnosis: Gangrene right foot I identified the patient and participated in the time-out.: Yes Procedure Operation Date: 01/06/23 11:10 Actual Procedures p Right posterior Femoral to Tibial Prosthetic Bypass(Right) - Darwin Waller MD Surgeon Darwin Waller MD Patrol Police Sergeant Evan,PAC Estimated Blood Loss 350 Findings Consistent with Post-Op Diagnosis Specimens none Anesthesia Type General Complications none Disposition Accompanied Patient To Recovery: No Disposition: Recovery Room Indications The patient is a 67-year-old gentleman with a nonhealing wound of the right lower extremity. 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 He has had a bypass in the leg in the past which has failed. He has no usable veins in the lower extremity. It was decided to do a prosthetic graft for limb salvage. I have discussed the risks options and benefits of the procedure with the patient. The patient understands the risks options and benefits and agrees to the procedure. Description of Procedure The patient was taken to the operating room and placed in the supine position. The lateral right lower extremity was prepped and draped in a sterile manner. The patient was identified and a timeout was performed. Longitudinal groin incision was then made. This was taken down to the femoral sheath. The common femoral artery was dissected free. It was soft with moderate amount of plaque present. We then made a medial calf incision in the upper third of the leg exposing the posterior tibial artery. This was of good caliber and soft to use for anastomosis. Using a Whitt tunneler tunnel was made from the Incision to the groin in a subsartorial fashion. A 6 mm propatent Whitt-Eliud graft was then passed through the tunneler. Patient was heparinized at that time. The common femoral artery was then clamped proximal distally. Longitudinal arteriotomy was then made. The Whitt-Eliud graft was beveled the usual fashion and sewn in end-to-side fashion to the common femoral artery. Once this was completed the clamp was placed on the graft and the clamps removed in the common femoral artery restoring circulation to the profunda. The posterior tibial artery was then clamped proximally distally. Longitudinal arteriotomy was then made. The artery was occluded using a flow Rester device and the clamps removed. The Whitt-Eliud graft was trimmed and beveled in appropriate fashion. The appropriate rings were removed. An end to side anastomosis was accomplished and the Whitt- Eliud graft in the posterior tibial artery in the usual vascular fashion. Prior to completing the closure backbleeding and forward bleeding was allowed to occur. The final few sutures were placed and securely tied. Clamps and removed. Excellent triphasic signals were heard beyond the anastomosis and the posterior tibial artery and at the foot. Wounds were inspected. Adequate hemostasis was seen of the anastomoses and the wounds. The wounds were then closed in usual fashion using running 2-0 Vicryl suture for the femoral sheath. A running 3-0 Vicryl was used for the subcutaneous layers and rome for the skin. Prevena graft was placed on the wounds. The patient left the operation room in satisfactory condition and tolerated the procedure well. All needle and sponge counts were correct at the end of the procedure. Monae Buckner Pac assisted due to lack of resident availability and was necessary for positioning, draping, retraction, wound closure deep layers, subcutaneous tissue, and skin closure and was necessary for assisting with the case. I attest to the content of the Intraoperative Record and any orders documented therein. Any exceptions are noted below.
--- NOTE | 2023-01-06 15:15 | Anesthesiology Progress Note ---
Date of Service January 06, 2023 Anesthesia Post Procedure Vital Signs Vital Signs: Temp Pulse Pulse Resp BP Pulse Ox O2 Del Method 01/06/23 15:05 86 17 135/66 94 Nasal Cannula 01/06/23 14:55 88 17 130/72 94 Nasal Cannula 01/06/23 14:45 86 17 132/69 96 Nasal Cannula 01/06/23 14:35 36.3 C L 84 18 133/76 96 Nasal Cannula 01/06/23 08:10 Room Air 01/06/23 10:46 87 18 91 Room Air 01/06/23 10:31 36.9 C 90 18 127/69 93 Room Air 01/06/23 08:14 36.8 C 102 H 18 157/72 H 94 Room Air 01/05/23 20:15 Room Air 01/05/23 20:50 37.4 C 98 H 20 128/68 96 Room Air O2 Flow Rate 01/06/23 15:05 4 01/06/23 14:55 4 01/06/23 14:45 4 01/06/23 14:35 4 01/06/23 08:10 01/06/23 10:46 01/06/23 10:31 01/06/23 08:14 01/05/23 20:15 01/05/23 20:50 Pain Intensity Right Foot: Pain Intensity: 7 Transfer of Care Handoff Completed per policy Notes Mental Status: alert / awake / arousable and participated in evaluation Patient Amnestic to Procedure: Yes Nausea / Vomiting: adequately controlled Pain: adequately controlled Airway Patency, RR, SpO2: stable & adequate BP & HR: stable & adequate Hydration State: stable & adequate Anesthetic Complications: no major complications apparent and Pt Satisfied with anesthetic care
--- NOTE | 2023-01-06 15:39 | Hospitalist Progress Note ---
Date of Service January 06, 2023 Assessment & Plan (1) Diabetic foot infection: Plan: Attending: Dr. Rodriguez Patient found to have foot infection of the right foot. Culture grew out MRSA. Continue with contact isolation per protocol Taken to the operating room and debrided by Dr. Novak. Then patient returned to the OR 01/04/2023 for closure Wound VAC closure device placed 01/05/2023 and currently with good seal and drainage Patient admitted 12/27/2022 and started on daptomycin and Zosyn. Currently is receiving daptomycin. Today is day 10 of IV antibiotics Wound care consult while in the hospital for wound VAC management. Patient will need outpatient follow-up with wound care clinic on discharge Anticipate patient will need inpatient rehab at the time of discharge (2) GI bleed: Plan: Patient with acute blood loss anemia secondary to bleeding within the cardia as identified on EGD. Continue with PPI with pantoprazole 40 mg p.o. twice daily. Patient is also continued on sucralfate 1 g p.o. 4 times daily Outpatient follow-up with gastroenterology Patient did receive 2 units of packed red blood cells 01/06/2023 Hemoglobin currently stable at 8.7 g/Maria Isabel No hematemesis or melena reported today (3) PVD (peripheral vascular disease): Plan: Return to operating theater today with Dr. Waller for femoropopliteal bypass Seen postoperatively. No perioperative complications Patient transferred to ICU for monitoring post procedure Anticipate the patient will be able to return to the general medical floor tomorrow Further management of vascular issues by Dr. Waller (4) CKD (chronic kidney disease): Plan: Patient is at baseline with creatinine of 1.43 Continue to monitor (5) T2DM (type 2 diabetes mellitus): Plan: Continue Lantus 18 units subcutaneously twice daily as well as sliding scale insulin Laboratory Tests 01/01/23 06:18 Hemoglobin A1c 7.1 H Plan Patient lives alone at home. Case management has been consulted to assist with discharge planning. Unknown if patient will need rehab or residential on discharge. Patient may need prolonged IV antibiotics. Admission and Anticipated Discharge Date Admission Date: December 27, 2022 Subjective Attending: Dr. Gutierres Patient seen and examined in PACU postoperatively after femoropopliteal bypass. Alert and oriented. Reports the pain is under control. Right groin site examined with no evidence of bleeding around dressing. Patient reports no acute distress. No other acute issues. Review of Systems Review of Systems: A total of 10 systems was reviewed and is negative other than as listed in the HPI Physical Exam Physical Exam: GENERAL : No acute distress. Patient alert and oriented. Seen in PACU postoperatively EYES: No icterus, gaze conjugate NOSE: No evidence of epistaxis MOUTH: No lesions or candidiasis NECK: Supple LUNGS: CTA B/L, no wheezes, rales or rhonchi HEART: Regular, rate controlled ABDOMEN: Soft, NT, ND, BS Present EXTREMITIES: Wound closure device intact to right forefoot. Bandage and dressing dry and intact in right groin NEURO: A&OX3 Results & Data Results & Data Vital Signs (Past 12 Hours) Vital Signs Temp Pulse Pulse Resp BP Pulse Ox O2 Del Method 01/06/23 15:25 99 H 17 120/56 L 94 Nasal Cannula 01/06/23 15:15 36.4 C L 98 H 17 128/62 94 Nasal Cannula 01/06/23 15:05 86 17 135/66 94 Nasal Cannula 01/06/23 14:55 88 17 130/72 94 Nasal Cannula 01/06/23 14:45 86 17 132/69 96 Nasal Cannula 01/06/23 14:35 36.3 C L 84 18 133/76 96 Nasal Cannula 01/06/23 08:10 Room Air 01/06/23 10:46 87 18 91 Room Air 01/06/23 10:31 36.9 C 90 18 127/69 93 Room Air 01/06/23 08:14 36.8 C 102 H 18 157/72 H 94 Room Air O2 Flow Rate 01/06/23 15:25 4 01/06/23 15:15 4 01/06/23 15:05 4 01/06/23 14:55 4 01/06/23 14:45 4 01/06/23 14:35 4 01/06/23 08:10 01/06/23 10:46 01/06/23 10:31 01/06/23 08:14 Critical Care Results & Data Vital Signs (Past 12 Hours) Vital Signs Temp Pulse Pulse Resp BP Pulse Ox O2 Del Method 01/06/23 15:25 99 H 17 120/56 L 94 Nasal Cannula 01/06/23 15:15 36.4 C L 98 H 17 128/62 94 Nasal Cannula 01/06/23 15:05 86 17 135/66 94 Nasal Cannula 01/06/23 14:55 88 17 130/72 94 Nasal Cannula 01/06/23 14:45 86 17 132/69 96 Nasal Cannula 01/06/23 14:35 36.3 C L 84 18 133/76 96 Nasal Cannula 01/06/23 08:10 Room Air 01/06/23 10:46 87 18 91 Room Air 01/06/23 10:31 36.9 C 90 18 127/69 93 Room Air 01/06/23 08:14 36.8 C 102 H 18 157/72 H 94 Room Air O2 Flow Rate 01/06/23 15:25 4 01/06/23 15:15 4 01/06/23 15:05 4 01/06/23 14:55 4 01/06/23 14:45 4 01/06/23 14:35 4 01/06/23 08:10 01/06/23 10:46 01/06/23 10:31 01/06/23 08:14 Lab & Micro Results (Past 24 Hours) RBC 2.68 M/uL (4.70-6.10) L 01/06/23 WBC 14.22 K/ul (4.8-10.8) H 01/06/23 Hgb 8.7 g/dl (14.0-18.0) L 01/06/23 Hct 27.1 % (42.0-52.0) L 01/06/23 MCV 101.1 fL (80.0-100.0) H 01/06/23 MCH 32.5 pg (25.0-34.0) 01/06/23 MCHC 32.1 g/dL (32.0-36.0) 01/06/23 RDW Standard Deviation 51.0 fL (36.4-46.3) H 01/06/23 RDW Coefficient of Variation 14.1 % (11.5-14.5) 01/06/23 Plt Count 629 K/uL (130-400) H 01/06/23 MPV 9.3 fL (9.4-12.4) L 01/06/23 Nucleated Red Blood Cells % (auto) 0.1 % 01/06 Nucleated RBC Absolute Count (auto) 0.02 K/uL (0-0.12) 12/18 07/11 Neutrophils (%) (Auto) 75.3 % 01/06/23 Lymphocytes (%) (Auto) 12.5 % 01/06/23 Monocytes # (Auto) 1.23 K/uL (0.11-0.59) H 01/06/23 Eosinophils # (Auto) 0.16 K/uL (0-0.50) 01/06/23 Immature Granulocyte % (Auto) 2.2 % 01/06/23 Neutrophils # (Auto) 10.70 K/uL (1.40-6.50) H 01/06/23 Lymphocytes # (Auto) 1.78 K/uL (1.2-3.4) 01/06/23 Monocytes # (Auto) 1.23 K/uL (0.11-0.59) H 01/06/23 Eosinophils # (Auto) 0.16 K/uL (0-0.50) 01/06/23 Basophils # (Auto) 0.04 K/uL (0-0.2) 01/06/23 Immature Granulocyte # (Auto) 0.31 K/uL (0.01-0.20) H 01/06 Na 135 mmol/L (136-145) L 01/06/23 K 4.4 mmol/L (3.5-5.1) 01/06/23 Cl 107 mmol/L (98-107) 01/06/23 CO2 20 mmol/L (21-32) L 01/06/23 Anion Gap 8 (3-11) 01/06/23 BUN 24 mg/dl (6-23) H 01/06/23 Creatinine 2.28 mg/dl (0.6-1.4) H 01/06/23 Estimated GFR ( Amer) 33.6 ml/min 01/06/23 Estimated GFR (Non-Af Amer) 29.0 ml/min 01/06/23 BUN/Creatinine Ratio 10.5 (10-20) 01/06/23 Glu 204 mg/dl (70-99(Fasting)) H 01/06/23 Ca 8.2 mg/dl (8.6-10.3) L 01/06/23 Calcium Level 8.2 mg/dl (8.6-10.3) L 01/06/23 15:34 I & O Totals 24 Hours 01/05/23 01/06/23 01/07/23 06:59 06:59 06:59 Intake Total 600 / 600 1200 / 1200 Output Total 1500 / 1500 904 / 904 251 / 251 Balance -900 / -900 -904 / -904 949 / 949 Cumulative 12/27/22 13:37 thru 01/06/23 15:20 Intake Total 780711.799 Output Total 60526 Balance 095507.799 RT Ventilator Mngmt (Last Documented) Ventilator Ordered Settings Respiratory Rate 17 01/06/23 15:25 Ventilator - PT Measurements Respiratory Rate 17 PG Care Time/CCT Total # of Minutes Spent Total Time Spent with Patient: Total time spent is greater than 50% in coordination of care (as documented) at patient's floor/unit and/or counseling patient: Coding Level of Care Code 60723 SUB INP/OBS CARE 2/35MIN Diagnoses Diabetic foot infection E11.628; L08.9 GI bleed K92.2 PVD (peripheral vascular disease) I73.9 CKD (chronic kidney disease) N18.9 T2DM (type 2 diabetes mellitus) E11.9 Time Spent (min) 21
[2023-01-06 15:56] LABS: Basophils # (auto) 0.04 K/uL (0-0.2); Basophils % (auto) 0.3 %; Eosinophils # (auto) 0.16 K/uL (0-0.50); Eosinophils % (auto) 1.1 %; Hematocrit (blood only) 27.1 % (42.0-52.0); Hemoglobin 8.7 g/dl (14.0-18.0); Immature Granulocytes # (auto) 0.31 K/uL (0.01-0.20); Immature Granulocytes % (auto) 2.2 %; Lymphocytes # (auto) 1.78 K/uL (1.2-3.4); Lymphocytes % (auto) 12.5 %; Mean Corpuscular Hemoglobin 32.5 pg (25.0-34.0); Mean Corpuscular Hgb Conc 32.1 g/dL (32.0-36.0); Mean Corpuscular Volume 101.1 fL (80.0-100.0); Mean Platelet Volume 9.3 fL (9.4-12.4); Monocytes # (auto) 1.23 K/uL (0.11-0.59); Monocytes % (auto) 8.6 %; Neutrophils % (auto) 75.3 %; Nucleated RBC # (auto) 0.02 K/uL (0-0.12); Nucleated RBC % (auto) 0.1 %; Platelet Count 629 K/uL (130-400); RDW Coefficient of Variation 14.1 % (11.5-14.5); Red Blood Count 2.68 M/uL (4.70-6.10); White Blood Count 14.22 K/ul (4.8-10.8)
--- NOTE | 2023-01-06 16:08 | Critical Care Consultation ---
Date of Consultation January 06, 2023 Assessment & Plan (1) History of femoropopliteal bypass: (2) PVD (peripheral vascular disease): (3) T2DM (type 2 diabetes mellitus): (4) CKD (chronic kidney disease): Plan Impression: 67-year-old male with diabetic foot infection. He has had multiple debridements but has had failure to improve and has had a occluded prior bypass graft. He was taken to the OR today for repeat bypass grafting to try and improve healing. His care is compromised by diabetes, chronic kidney disease, and anemia with recent upper GI bleed. Recommendations: 1. Post femoral to popliteal bypass grafting: The patient is doing well clinically. Continue neurovascular checks. Wound care per vascular surgery. 2. Diabetic foot infection: Continue antibiotics. Wound cultures have grown Staph aureus. Blood cultures have shown no growth to date. Additional debridement per podiatry, vascular surgery, and orthopedics. As the patient may require prolonged antibiotics, ID consultation may be beneficial. Patient is currently receiving daptomycin 3. Diabetes: Continue glycemic control per protocol. 4. Anemia: Recent GI bleed. Hemoglobin stable. Continue to trend at this point in time. No indication for transfusion. 5. Await postoperative labs. Serum creatinine had been stable. 6. Hypertension: Lisinopril currently on hold given renal function. He is getting hydralazine pushes on an as-needed basis. We will continue to follow and consider initiation of oral medications depending on kidney function and blood pressure. The patient's remaining medical issues have been well addressed by the admitting hospitalist service as well as by the vascular surgery service postoperatively. We will continue to follow for any critical care needs that arise within the next 12 to 18 hours. If he does well, anticipate the arterial line can be d iscontinued and he can potentially downgrade out of the ICU in the morning. The above recommendations and plan were discussed with the patient and his at bedside. Questions were answered to the best of my ability. They expressed understanding and are in agreement with the plan as outlined. History of Present Illness Attending Physician: Roger Rodriguez MD History of Present Illness Asked by vascular surgery to assist with critical care management this patient status post femoral-popliteal bypass grafting. History is obtained from discussion with the patient and his at bedside as well as review of the electronic medical record and discussion with the hospitalist team. The patient is a 67-year-old male with a history of diabetic foot infection and osteomyelitis. He has poor blood flow and has been seen in the past by Dr. Waller. He has a prior history of bypass grafting on that side which did not appear to be patent. He was taken to the OR today where he underwent posterior femoral to tibial bypass grafting. He was extubated. Has been hemodynamically stable. He is transferred to the ICU for continued monitoring. The patient states that he feels well. He is not having any pain. He denies any shortness of breath. No nausea or vomiting. He is awake alert and conversant and doing well clinically. Allergies Allergy/AdvReac Type Severity Reaction Status Date / Time bee venom protein (honey bee) Allergy Severe Anaphylaxis Unverified 01/02/23 08:28 Home Medications Medication Instructions Recorded Confirmed Type acetaminophen 500 mg tablet 500 mg PO DAILY PRN Pain 12/27/22 12/27/22 History ascorbic acid (vitamin C) 500 mg 500 mg PO DAILY 12/27/22 12/27/22 History tablet atorvastatin 20 mg tablet 20 mg PO DAILY 12/27/22 12/27/22 History cholecalciferol (vitamin D3) 50 50 mcg PO DAILY 12/27/22 12/27/22 History mcg (2,000 unit) capsule (Vitamin D3) cilostazol 100 mg tablet 100 mg PO BID 12/27/22 12/27/22 History clindamycin HCl 300 mg capsule 300 mg PO Q6H 12/27/22 12/27/22 History clopidogrel 75 mg tablet 75 mg PO DAILY 12/27/22 12/27/22 History epinephrine 0.3 mg/0.3 mL 0.3 mg IM DIRECTED 12/27/22 12/27/22 History injection, auto-injector finerenone 10 mg tablet (Kerendia) 10 mg PO DAILY 12/27/22 12/27/22 History gabapentin 300 mg capsule 600 mg PO QID 12/27/22 12/27/22 History insulin aspart U-100 100 unit/mL 0 unit subcut DIRECTED 12/27/22 12/27/22 History (3 mL) subcutaneous pen (Novolog FlexPen U-100 Insulin aspart) insulin glargine 100 unit/mL (3 0 unit subcut QPM 12/27/22 12/27/22 History mL) subcutaneous pen (Lantus Solostar U-100 Insulin) lisinopril 40 mg tablet 40 mg PO HS 12/27/22 12/27/22 History multivitamin 1 tab PO DAILY 12/27/22 12/27/22 History pioglitazone 45 mg tablet 45 mg PO DAILY 12/27/22 12/27/22 History tramadol 50 mg tablet 50 mg PO BID PRN Pain 12/27/22 12/27/22 History vit C 250 mg-vit E 90 mg-zinc 40 1 cap PO DAILY 12/27/22 12/27/22 History mg-copper 1 [id number] capsule (PreserVision AREDS-2) Patient History Medical History (Updated 01/06/23 @ 09:45 by Kezia Greco DO) CKD (chronic kidney disease) stage 3 Diabetic foot infection 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 GI bleed Melena Osteomyelitis of right foot PVD (peripheral vascular disease) T2DM (type 2 diabetes mellitus) TIA (transient ischemic attack) no residual deficits Transaminitis Surgical History (Updated 01/06/23 @ 09:45 by Kezia Greco DO) History of esophagogastroduodenoscopy (EGD) History of femoral angiogram RLE History of femoropopliteal bypass History of orthopedic surgery R foot metatarsal amp, R foot I+D, R foot revision and wound vac application Social History Smoking Status: Current every day smoker Tobacco Type: Cigarettes Second Hand Exposure: Yes; Do You Dip or Chew Tobacco: No; Tobacco Cessation Education Requested by Patient: No Hx Substance Use: No Preferred Language: Icelandic Communication Ability: Effective Campus Administrative Assistant Required: No Beliefs That Will Affect Care: None Current Living Situation: Alone Other Information That Helps Us Care for You: No Feels Safe at Home: Yes Safety Concerns: Feels Safe At This Time Assistive Devices: Cane, Walker and Wheelchair Review of Systems Review of Systems: All systems reviewed & are unremarkable except as noted in Subjective Physical Exam Physical Exam: GENERAL : No acute distress. Patient alert and oriented. Seen in PACU postoperatively EYES: No icterus, gaze conjugate NOSE: No evidence of epistaxis MOUTH: No lesions or candidiasis NECK: Supple LUNGS: CTA B/L, no wheezes, rales or rhonchi HEART: Regular, rate controlled ABDOMEN: Soft, NT, ND, BS Present EXTREMITIES: Wound closure device intact to right forefoot. Bandage and dressing dry and intact in right groin NEURO: A&OX3 Results & Data Results & Data Vital Signs (Past 12 Hours) Vital Signs Temp Pulse Pulse Resp BP Pulse Ox O2 Del Method 01/06/23 15:25 99 H 17 120/56 L 94 Nasal Cannula 01/06/23 15:15 36.4 C L 98 H 17 128/62 94 Nasal Cannula 01/06/23 15:05 86 17 135/66 94 Nasal Cannula 01/06/23 14:55 88 17 130/72 94 Nasal Cannula 01/06/23 14:45 86 17 132/69 96 Nasal Cannula 01/06/23 14:35 36.3 C L 84 18 133/76 96 Nasal Cannula 01/06/23 08:10 Room Air 01/06/23 10:46 87 18 91 Room Air 01/06/23 10:31 36.9 C 90 18 127/69 93 Room Air 01/06/23 08:14 36.8 C 102 H 18 157/72 H 94 Room Air O2 Flow Rate 01/06/23 15:25 4 01/06/23 15:15 4 01/06/23 15:05 4 01/06/23 14:55 4 01/06/23 14:45 4 01/06/23 14:35 4 01/06/23 08:10 01/06/23 10:46 01/06/23 10:31 01/06/23 08:14 Critical Care Results & Data Vital Signs (Past 12 Hours) Vital Signs Temp Pulse Pulse Resp BP Pulse Ox O2 Del Method 01/06/23 15:25 99 H 17 120/56 L 94 Nasal Cannula 01/06/23 15:15 36.4 C L 98 H 17 128/62 94 Nasal Cannula 01/06/23 15:05 86 17 135/66 94 Nasal Cannula 01/06/23 14:55 88 17 130/72 94 Nasal Cannula 01/06/23 14:45 86 17 132/69 96 Nasal Cannula 01/06/23 14:35 36.3 C L 84 18 133/76 96 Nasal Cannula 01/06/23 08:10 Room Air 01/06/23 10:46 87 18 91 Room Air 01/06/23 10:31 36.9 C 90 18 127/69 93 Room Air 01/06/23 08:14 36.8 C 102 H 18 157/72 H 94 Room Air O2 Flow Rate 01/06/23 15:25 4 01/06/23 15:15 4 01/06/23 15:05 4 01/06/23 14:55 4 01/06/23 14:45 4 01/06/23 14:35 4 01/06/23 08:10 01/06/23 10:46 01/06/23 10:31 01/06/23 08:14 Lab & Micro Results (Past 24 Hours) RBC 2.68 M/uL (4.70-6.10) L 01/06/23 WBC 14.22 K/ul (4.8-10.8) H 01/06/23 Hgb 8.7 g/dl (14.0-18.0) L 01/06/23 Hct 27.1 % (42.0-52.0) L 01/06/23 MCV 101.1 fL (80.0-100.0) H 01/06/23 MCH 32.5 pg (25.0-34.0) 01/06/23 MCHC 32.1 g/dL (32.0-36.0) 01/06/23 RDW Standard Deviation 51.0 fL (36.4-46.3) H 01/06/23 RDW Coefficient of Variation 14.1 % (11.5-14.5) 01/06/23 Plt Count 629 K/uL (130-400) H 01/06/23 MPV 9.3 fL (9.4-12.4) L 01/06/23 Nucleated Red Blood Cells % (auto) 0.1 % 01/06 Nucleated RBC Absolute Count (auto) 0.02 K/uL (0-0.12) 12/18 07/11 Neutrophils (%) (Auto) 75.3 % 01/06/23 Lymphocytes (%) (Auto) 12.5 % 01/06/23 Monocytes # (Auto) 1.23 K/uL (0.11-0.59) H 01/06/23 Eosinophils # (Auto) 0.16 K/uL (0-0.50) 01/06/23 Immature Granulocyte % (Auto) 2.2 % 01/06/23 Neutrophils # (Auto) 10.70 K/uL (1.40-6.50) H 01/06/23 Lymphocytes # (Auto) 1.78 K/uL (1.2-3.4) 01/06/23 Monocytes # (Auto) 1.23 K/uL (0.11-0.59) H 01/06/23 Eosinophils # (Auto) 0.16 K/uL (0-0.50) 01/06/23 Basophils # (Auto) 0.04 K/uL (0-0.2) 01/06/23 Immature Granulocyte # (Auto) 0.31 K/uL (0.01-0.20) H 01/06 Na 135 mmol/L (136-145) L 01/06/23 K 4.4 mmol/L (3.5-5.1) 01/06/23 Cl 107 mmol/L (98-107) 01/06/23 CO2 20 mmol/L (21-32) L 01/06/23 Anion Gap 8 (3-11) 01/06/23 BUN 24 mg/dl (6-23) H 01/06/23 Creatinine 2.28 mg/dl (0.6-1.4) H 01/06/23 Estimated GFR ( Amer) 33.6 ml/min 01/06/23 Estimated GFR (Non-Af Amer) 29.0 ml/min 01/06/23 BUN/Creatinine Ratio 10.5 (10-20) 01/06/23 Glu 204 mg/dl (70-99(Fasting)) H 01/06/23 Ca 8.2 mg/dl (8.6-10.3) L 01/06/23 Calcium Level 8.2 mg/dl (8.6-10.3) L 01/06/23 15:34 I & O Totals 24 Hours 01/05/23 01/06/23 01/07/23 06:59 06:59 06:59 Intake Total 600 / 600 1200 / 1200 Output Total 1500 / 1500 904 / 904 251 / 251 Balance -900 / -900 -904 / -904 949 / 949 Cumulative 12/27/22 13:37 thru 01/06/23 15:20 Intake Total 435649.799 Output Total 90038 Balance 604501.799 RT Ventilator Mngmt (Last Documented) Ventilator Ordered Settings Respiratory Rate 17 01/06/23 15:25 Ventilator - PT Measurements Respiratory Rate 17 Coding Level of Care Code 91102 IN/OBS CONSULT LVL 4,60M Diagnoses History of femoropopliteal bypass Z98.890 PVD (peripheral vascular disease) I73.9 T2DM (type 2 diabetes mellitus) E11.9 CKD (chronic kidney disease) N18.9
[2023-01-06] MEDS ORDERED: LACTATED RINGER'S 1,000 ML IV SCH (16:12)
[2023-01-06 16:13] LABS: BUN Creatinine Ratio 10.5 (10-20); Calcium 8.2 mg/dl (8.6-10.3); Creatinine Clr Calc Pharmacy 40.8 ml/min; Est GFR (African American) 33.6 ml/min; Potassium 4.4 mmol/L (3.5-5.1)
[2023-01-06] MEDS ORDERED: SODIUM CHLORIDE 0.9% 250 ML IV PRN (16:43)
[2023-01-06] MEDS ORDERED: INSULIN ASPART PER UNIT CHARGE SC SCH (16:50)
[2023-01-06] MEDS: FINERENONE PO SCH (17:02)
[2023-01-06] MEDS: traMADol HCL 50 MG TABLET PO PRN (20:10)
[2023-01-06] MEDS: DAPTOmycin 550 MG in SYRINGE 0 ML IV SCH (20:11)
[2023-01-06] MEDS: LANTUS PER UNIT CHARGE SQ SCH (21:56)
[2023-01-06] MEDS: HYDROmorphone INJ 0.5 MG/0.5 ML SYR IV PRN (21:57)
[2023-01-07] MEDS: HYDROmorphone INJ 0.5 MG/0.5 ML SYR IV PRN ×2 (03:55→19:11)
[2023-01-07 04:49] LABS: BUN Creatinine Ratio 10.9 (10-20); Creatinine Clr Calc Pharmacy 38.9 ml/min; Est GFR (African American) 31.8 ml/min; Est GFR (Non-African American) 27.4 ml/min; Potassium 4.8 mmol/L (3.5-5.1)
[2023-01-07 04:50] LABS: Basophils # (auto) 0.04 K/uL (0-0.2); Basophils % (auto) 0.3 %; Eosinophils # (auto) 0.23 K/uL (0-0.50); Eosinophils % (auto) 1.7 %; Hematocrit (blood only) 30.4 % (42.0-52.0); Hemoglobin 10.1 g/dl (14.0-18.0); Immature Granulocytes # (auto) 0.12 K/uL (0.01-0.20); Immature Granulocytes % (auto) 0.9 %; Lymphocytes # (auto) 1.59 K/uL (1.2-3.4); Lymphocytes % (auto) 11.5 %; Mean Corpuscular Hgb Conc 33.2 g/dL (32.0-36.0); Mean Corpuscular Volume 99.3 fL (80.0-100.0); Mean Platelet Volume 9.3 fL (9.4-12.4); Monocytes # (auto) 1.56 K/uL (0.11-0.59); Monocytes % (auto) 11.3 %; Neutrophils # (auto) 10.25 K/uL (1.40-6.50); Neutrophils % (auto) 74.3 %; Nucleated RBC # (auto) 0.02 K/uL (0-0.12); Nucleated RBC % (auto) 0.1 %; Platelet Count 512 K/uL (130-400); RDW Coefficient of Variation 15.3 % (11.5-14.5); RDW Standard Deviation 54.4 fL (36.4-46.3); Red Blood Count 3.06 M/uL (4.70-6.10); White Blood Count 13.79 K/ul (4.8-10.8)
[2023-01-07] MEDS: HEPARIN SOD 5,000 UNIT/0.5 ML VIAL SQ SCH ×3 (06:34→21:08)
--- NOTE | 2023-01-07 07:35 | Hospitalist Progress Note ---
Date of Service January 07, 2023 Assessment & Plan (1) Diabetic foot infection: Plan: right foot tissue infection with history of poor vascular dupply . Culture grew out MRSA. on Daptomycin, Taken to the operating room and debrided by Dr. Novak. Then patient returned to the OR 01/04/2023 for closure Wound VAC closure device placed 01/05/2023 revascularization r fem pop Dr Waller 01/06/23 (2) GI bleed: Plan: Patient with acute blood loss anemia secondary to bleeding within the cardia of the stomach as identified on EGD. Continue with PPI with pantoprazole 40 mg p.o. twice daily. Patient is also continued on sucralfate 1 g p.o. 4 times daily Outpatient follow-up with gastroenterology Patient did receive 2 units of packed red blood cells 01/06/2023 (3) PVD (peripheral vascular disease): Plan: Dr. Waller for femoropopliteal bypass 01/06/23 is on Cilostazol bid , no dose adjustments if Cr <2.5 (4) CKD (chronic kidney disease): Plan: ayah post operatively (5) T2DM (type 2 diabetes mellitus): Plan: Continue Lantus 18 units subcutaneously twice daily as well as sliding scale insulin Laboratory Tests 01/01/23 06:18 Hemoglobin A1c 7.1 H Plan Patient lives alone at home. Case management has been consulted to assist with discharge planning. Unknown if patient will need rehab or prison on discharge. Patient may need prolonged IV antibiotics. Admission and Anticipated Discharge Date Admission Date: December 27, 2022 Subjective Patient awake with no complaints. Denies foot pain, has some mild thigh pain still plans on going home alone Physical Exam Physical Exam: Pt is awake and alert cardiac is regular and lungs are clear foot with good capillary refill, wound vac in place x2 Results & Data Results & Data Vital Signs (Past 12 Hours) Vital Signs Temp Pulse Resp BP Pulse Ox O2 Del Method 01/07/23 03:00 98.2 F 01/07/23 00:00 85 01/06/23 23:00 98.4 F 01/06/23 21:18 98.2 F 90 17 143/70 H 97 01/06/23 21:24 Room Air 01/06/23 19:30 84 19 96 01/06/23 19:30 136/64 01/06/23 19:43 98.2 F 88 16 126/65 93 Laboratory Results reviewed cbc reviewed chemistry PG Care Time/CCT Total # of Minutes Spent Total Time Spent with Patient: Total time spent is greater than 50% in coordination of care (as documented) at patient's floor/unit and/or counseling patient: Coding Level of Care Code 10045 SUB INP/OBS CARE 2/35MIN Diagnoses Diabetic foot infection E11.628; L08.9 GI bleed K92.2 PVD (peripheral vascular disease) I73.9 CKD (chronic kidney disease) N18.9 T2DM (type 2 diabetes mellitus) E11.9
--- NOTE | 2023-01-07 08:22 | Critical Care Progress Note ---
Date of Service January 07, 2023 Assessment & Plan (1) Diabetic foot infection: (2) PVD (peripheral vascular disease): (3) T2DM (type 2 diabetes mellitus): (4) GI bleed: Plan Impression: 67-year-old male with diabetic foot infection. Postop day 1 femoropopliteal bypass. He is doing well clinically. Toradol appears to be effective in controlling his pain. Recommendations: 1. Post femoral to popliteal bypass grafting: The patient is doing well clinically. Continue neurovascular checks. Wound care per vascular surgery. Pain management per surgery. Toradol appears to be effective 2. Diabetic foot infection: Continue antibiotics. Wound cultures have grown Staph aureus. Blood cultures have shown no growth to date. Additional debridement per podiatry, vascular surgery, and orthopedics. As the patient may require prolonged antibiotics, ID consultation may be beneficial. Patient is currently receiving daptomycin 3. Diabetes: Continue glycemic control per protocol. 4. Anemia: Recent GI bleed. Hemoglobin stable. Continue to trend at this point in time. No indication for transfusion. 5. Await postoperative labs. Serum creatinine had been stable. 6. Hypertension: Lisinopril currently on hold given renal function. He is getting hydralazine pushes on an as-needed basis. Can start low-dose of oral hydralazine. If kidney function worsens, nephrology consultation may be entertained The patient appears stable to transfer out of the intensive care unit at this point in time. Will return care to the hospitalist. Critical care will sign off. Feel free to contact us with questions or concerns Admission and Anticipated Discharge Date Admission Date: December 27, 2022 Subjective Patient seen and examined. EMR reviewed and noted. Discussed with critical care nurse and patient at bedside. The patient is doing reasonably well. He continues to complain of some pain in his right calf and lower extremity. His pain medication is adequate in controlling his pain. He is not having any chest pain or difficulty breathing. No cough or sputum production. No new neurological complaints other than some numbness on the roof of his mouth. He is not having any difficulty chewing or swallowing. Review of Systems Review of Systems: All systems reviewed & are unremarkable except as noted in Subjective Physical Exam Physical Exam: GENERAL : No acute distress. Patient alert and oriented. Seen in PACU postoperatively EYES: No icterus, gaze conjugate NOSE: No evidence of epistaxis MOUTH: No lesions or candidiasis NECK: Supple LUNGS: CTA B/L, no wheezes, rales or rhonchi HEART: Regular, rate controlled ABDOMEN: Soft, NT, ND, BS Present EXTREMITIES: Wound closure device intact to right forefoot. Bandage and dressing dry and intact in right groin NEURO: A&OX3 Results & Data Results & Data Vital Signs (Past 12 Hours) Vital Signs Temp Pulse Resp BP Pulse Ox O2 Del Method 01/07/23 03:00 36.8 C 01/07/23 00:00 85 01/06/23 23:00 36.9 C 01/06/23 21:18 36.8 C 90 17 143/70 H 97 01/06/23 21:24 Room Air Critical Care Results & Data Vital Signs (Past 12 Hours) Vital Signs Temp Pulse Resp BP Pulse Ox O2 Del Method 01/07/23 03:00 36.8 C 01/07/23 00:00 85 01/06/23 23:00 36.9 C 01/06/23 21:18 36.8 C 90 17 143/70 H 97 01/06/23 21:24 Room Air Lab & Micro Results (Past 24 Hours) RBC 3.06 M/uL (4.70-6.10) L 01/07/23 WBC 13.79 K/ul (4.8-10.8) H 01/07/23 Hgb 10.1 g/dl (14.0-18.0) L 01/07/23 Hct 30.4 % (42.0-52.0) L 01/07/23 MCV 99.3 fL (80.0-100.0) 01/07/23 MCH 33.0 pg (25.0-34.0) 01/07/23 MCHC 33.2 g/dL (32.0-36.0) 01/07/23 RDW Standard Deviation 54.4 fL (36.4-46.3) H 01/07/23 RDW Coefficient of Variation 15.3 % (11.5-14.5) H 01/07/23 Plt Count 512 K/uL (130-400) H 01/07/23 MPV 9.3 fL (9.4-12.4) L 01/07/23 Nucleated Red Blood Cells % (auto) 0.1 % 01/07 Nucleated RBC Absolute Count (auto) 0.02 K/uL (0-0.12) 12/18 08/11 Neutrophils (%) (Auto) 74.3 % 01/07/23 Lymphocytes (%) (Auto) 11.5 % 01/07/23 Monocytes # (Auto) 1.56 K/uL (0.11-0.59) H 01/07/23 Eosinophils # (Auto) 0.23 K/uL (0-0.50) 01/07/23 Immature Granulocyte % (Auto) 0.9 % 01/07/23 Neutrophils # (Auto) 10.25 K/uL (1.40-6.50) H 01/07/23 Lymphocytes # (Auto) 1.59 K/uL (1.2-3.4) 01/07/23 Monocytes # (Auto) 1.56 K/uL (0.11-0.59) H 01/07/23 Eosinophils # (Auto) 0.23 K/uL (0-0.50) 01/07/23 Basophils # (Auto) 0.04 K/uL (0-0.2) 01/07/23 Immature Granulocyte # (Auto) 0.12 K/uL (0.01-0.20) 3 Na 135 mmol/L (136-145) L 01/07/23 K 4.8 mmol/L (3.5-5.1) 01/07/23 Cl 107 mmol/L (98-107) 01/07/23 CO2 20 mmol/L (21-32) L 01/07/23 Anion Gap 8 (3-11) 01/07/23 BUN 26 mg/dl (6-23) H 01/07/23 Creatinine 2.39 mg/dl (0.6-1.4) H 01/07/23 Estimated GFR ( Amer) 31.8 ml/min 01/07/23 Estimated GFR (Non-Af Amer) 27.4 ml/min 01/07/23 BUN/Creatinine Ratio 10.9 (10-20) 01/07/23 Glu 155 mg/dl (70-99(Fasting)) H 01/07/23 Ca 8.0 mg/dl (8.6-10.3) L 01/07/23 Calcium Level 8.0 mg/dl (8.6-10.3) L 01/07/23 04:07 I & O Totals 24 Hours 01/06/23 01/07/23 01/08/23 06:59 06:59 06:59 Intake Total 1860 / 1860 Output Total 904 / 904 1427 / 1427 Balance -904 / -904 433 / 433 Cumulative 12/27/22 13:37 thru 01/07/23 06:46 Intake Total 771709.799 Output Total 15973 Balance 211936.799 RT Ventilator Mngmt (Last Documented) Ventilator Ordered Settings Respiratory Rate 17 01/06/23 21:18 Ventilator - PT Measurements Respiratory Rate 17 Coding Level of Care Code 31789 SUB INP/OBS CARE 2/35MIN Diagnoses Diabetic foot infection E11.628; L08.9 PVD (peripheral vascular disease) I73.9 T2DM (type 2 diabetes mellitus) E11.9 GI bleed K92.2
--- NOTE | 2023-01-07 08:27 | Surgery Progress Note ---
Date of Service January 07, 2023 Assessment & Plan (1) PVD (peripheral vascular disease): Plan: Patient POD#1 from redo right fem post tib prosthetic bypass. Graft working well with good PT to doppler. Will transfer to floor Will make right leg a restricted limb. No tourniquets to right leg due to graft. Will need to be on ASA and Xarelto low dose for the bypass. Admission and Anticipated Discharge Date Admission Date: December 27, 2022 Subjective Patient awake with no complaints. Denies foot pain Physical Exam Constitutional: WD/WN, vitals as above Respiratory: normal respiratory effort; no respiratory distress Cardiovascular: Vessels: posterior tibial pulses present (good right pt to doppler) Extremities: normal capillary refill Rate regular with occassional PAC's Skin: + incision (pervena dressings in place) Neurologic: CN's II-XI intact bilaterally and moves all extremities Results & Data Vital Signs (Past 12 Hours) Vital Signs Temp Pulse Resp BP Pulse Ox O2 Del Method 01/07/23 03:00 36.8 C 01/07/23 00:00 85 01/06/23 23:00 36.9 C 01/06/23 21:18 36.8 C 90 17 143/70 H 97 01/06/23 21:24 Room Air
[2023-01-07] MEDS: GABAPENTIN 600 MG TAB PO SCH ×4 (08:29→20:54)
[2023-01-07] MEDS: INSULIN ASPART PER UNIT CHARGE SC SCH ×4 (08:29→20:33)
[2023-01-07] MEDS: cilostazoL 100 MG TAB PO SCH ×2 (08:30→20:55)
[2023-01-07] MEDS: ADVANCED PROBIOTIC 1250 MG CAPSULE PO SCH (08:30)
[2023-01-07] MEDS: ASCORBIC ACID 500 MG TAB PO SCH (08:30)
[2023-01-07] MEDS: PANTOprazole 40 MG TAB PO SCH ×2 (08:31→21:07)
[2023-01-07] MEDS: SUCRALFATE 1 GM/10 ML UDC PO SCH ×4 (08:31→20:54)
[2023-01-07] MEDS: LANTUS PER UNIT CHARGE SQ SCH ×2 (08:33→20:55)
[2023-01-07] MEDS: ASPIRIN 81 MG ECTAB PO SCH (09:26)
[2023-01-07] MEDS: traMADol HCL 50 MG TABLET PO PRN (14:51)
[2023-01-07] MEDS: FINERENONE PO SCH (16:26)
[2023-01-07] MEDS: DAPTOmycin 550 MG in SYRINGE 0 ML IV SCH (21:07)
--- NOTE | 2023-01-07 22:33 | Orthopedic Progress Note ---
Date of Service January 07, 2023 Assessment & Plan (1) Osteomyelitis of right foot: Plan: Patient seen, evaluated, and treated. Patient s/p right foot excision of bone day #10 (DOS:12/28/22) Wound vac changed with out incident. 125mmHg continuous. Excellent signs of healing noted. Will continue to follow. Thank you for allowing me to participate in the care of this Patient. Admission and Anticipated Discharge Date Admission Date: December 27, 2022 Subjective Patient awake with no complaints. Denies foot pain, has some mild thigh pain still plans on going home alone Review of Systems Review of Systems: All systems reviewed & are unremarkable except as noted in Subjective Physical Exam Constitutional: cooperative and comfortable Neck: trachea midline Respiratory: normal respiratory effort Cardiovascular: Vessels: posterior tibial pulses present and dorsalis pedis pu lses present Musculoskeletal: Extremities: + foot abnormality Skin: + ulcer (Right foot and ankle wound), + wound (Right foot wound) and + erythema (Right foot) Neurologic: moves all extremities (Absent epicritic sensation) Psychiatric: Orientation: alert and oriented x 3 Results & Data Vital Signs (Past 12 Hours) Vital Signs Temp Pulse Resp BP Pulse Ox Pulse Ox O2 Del Method 01/07/23 20:34 37.6 C H 100 H 18 134/76 95 Room Air 01/07/23 16:00 94 01/07/23 14:45 37.1 C 102 H 18 134/70 93 Room Air O2 Del Method 01/07/23 20:34 01/07/23 16:00 Room Air 01/07/23 14:45
[2023-01-08] MEDS: HEPARIN SOD 5,000 UNIT/0.5 ML VIAL SQ SCH ×3 (05:32→21:33)
[2023-01-08] MEDS: ASPIRIN 81 MG ECTAB PO SCH (08:18)
[2023-01-08] MEDS: ASCORBIC ACID 500 MG TAB PO SCH (08:18)
[2023-01-08] MEDS: PANTOprazole 40 MG TAB PO SCH ×2 (08:18→21:33)
[2023-01-08] MEDS: ADVANCED PROBIOTIC 1250 MG CAPSULE PO SCH (08:19)
[2023-01-08] MEDS: SUCRALFATE 1 GM/10 ML UDC PO SCH ×4 (08:20→21:33)
[2023-01-08] MEDS: INSULIN ASPART PER UNIT CHARGE SC SCH ×4 (08:34→21:32)
[2023-01-08] MEDS: LANTUS PER UNIT CHARGE SQ SCH ×2 (08:35→21:33)
--- NOTE | 2023-01-08 10:56 | Electrocardiogram Report ---
Test Reason : Blood Pressure : / mmHG Vent. Rate : 102 BPM Atrial Rate : 102 BPM P-R Int : 184 ms QRS Dur : 070 ms QT Int : 384 ms P-R-T Axes : 063 046 067 degrees QTc Int : 500 ms Sinus tachycardia with Premature atrial complexes Prolonged QT Abnormal ECG When compared with ECG of 28-DEC-2022 12:46, Premature atrial complexes are now Present Vent. rate has increased BY 40 BPM QT has lengthened Confirmed by Malachi Tuttle ([id number] on 01/08/2023 10:56:09 AM Referred By: Roger Dwyer Confirmed By:Malachi Tuttle
[2023-01-08 10:58] LABS: Hematocrit (blood only) 28.7 % (42.0-52.0); Hemoglobin 9.6 g/dl (14.0-18.0); Mean Corpuscular Hemoglobin 33.1 pg (25.0-34.0); Mean Corpuscular Hgb Conc 33.4 g/dL (32.0-36.0); Mean Platelet Volume 9.3 fL (9.4-12.4); Platelet Count 487 K/uL (130-400); RDW Standard Deviation 54.1 fL (36.4-46.3); White Blood Count 11.17 K/ul (4.8-10.8)
[2023-01-08] MEDS: GABAPENTIN 600 MG TAB PO SCH ×4 (10:58→21:32)
[2023-01-08] MEDS: cilostazoL 100 MG TAB PO SCH ×2 (11:01→21:31)
[2023-01-08] MEDS: traMADol HCL 50 MG TABLET PO PRN (11:01)
[2023-01-08 11:13] LABS: Calcium 8.1 mg/dl (8.6-10.3); Creatinine Clr Calc Pharmacy 52.2 ml/min; Est GFR (African American) 45.1 ml/min; Est GFR (Non-African American) 38.9 ml/min; Potassium 4.4 mmol/L (3.5-5.1)
--- NOTE | 2023-01-08 13:31 | Hospitalist Progress Note ---
Date of Service January 08, 2023 Assessment & Plan (1) Diabetic foot infection: Plan: right foot tissue infection with history of poor vascular dupply . Culture grew out MRSA. on Daptomycin, this from wound, no blood cultures are positive Taken to the operating room and debrided by Dr. Novak. Then patient returned to the OR 01/04/2023 for closure Wound VAC closure device placed 01/05/2023 revascularization r fem pop Dr Waller 01/06/23 (2) GI bleed: Plan: Patient with acute blood loss anemia secondary to bleeding within the cardia of the stomach as identified on EGD. Continue with PPI with pantoprazole 40 mg p.o. twice daily. Patient is also continued on sucralfate 1 g p.o. 4 times daily Outpatient follow-up with gastroenterology Patient did receive 2 units of packed red blood cells 01/06/2023 (3) PVD (peripheral vascular disease): Plan: Dr. Waller for femoropopliteal bypass 01/06/23 is on Cilostazol bid , no dose adjustments if Cr <2.5 (4) CKD (chronic kidney disease): Plan: ayah post operatively (5) T2DM (type 2 diabetes mellitus): Plan: Continue Lantus 18 units subcutaneously twice daily as well as sliding scale insulin Laboratory Tests Hemoglobin A1c 7.1 H Plan Patient lives alone at home. Case management has been consulted to assist with discharge planning. patient is not on go to rehab wants to go home physical therapy has been challenging given some leg pain. Positive blood cultures we will shoot for 2-week therapy and we could consider transition to oral linezolid at discharge limiting factor going home as his functional physical performance Admission and Anticipated Discharge Date Admission Date: December 27, 2022 Subjective Patient awake with no complaints. patient does have some phantom pain of his foot on 01/08 continued thigh pain on 01/08 this is limiting his ability to do physical therapy. that of some tachycardia this morning EKG supports sinus tach PACs this pt still plans on going home alone Physical Exam Physical Exam: Pt is awake and alert cardiac is regular and lungs are clear foot with good capillary refill, wound vac in place x2 right thigh is without induration or ecchymosis Results & Data Results & Data Vital Signs (Past 12 Hours) Vital Signs Temp Pulse Resp BP BP Pulse Ox O2 Del Method 01/08/23 08:00 01/08/23 08:00 Room Air 01/08/23 07:41 98.6 F 107 H 16 116/67 168/73 H 94 Room Air O2 Del Method 01/08/23 08:00 Room Air 01/08/23 08:00 01/08/23 07:41 Laboratory Results review cbc review prp review c diff PG Care Time/CCT Total # of Minutes Spent Total Time Spent with Patient: Total time spent is greater than 50% in coordination of care (as documented) at patient's floor/unit and/or counseling patient: Coding Level of Care Code 44512 SUB INP/OBS CARE 2/35MIN Diagnoses Diabetic foot infection E11.628; L08.9 GI bleed K92.2 PVD (peripheral vascular disease) I73.9 CKD (chronic kidney disease) N18.9 T2DM (type 2 diabetes mellitus) E11.9
[2023-01-08] MEDS: HYDROmorphone INJ 0.5 MG/0.5 ML SYR IV PRN (15:06)
[2023-01-08] MEDS: FINERENONE PO SCH (17:47)
[2023-01-08] MEDS: DAPTOmycin 550 MG in SYRINGE 0 ML IV SCH (20:04)
[2023-01-09] MEDS: HEPARIN SOD 5,000 UNIT/0.5 ML VIAL SQ SCH ×3 (06:16→20:03)
[2023-01-09] MEDS: SUCRALFATE 1 GM/10 ML UDC PO SCH ×4 (08:46→20:03)
[2023-01-09] MEDS: ASCORBIC ACID 500 MG TAB PO SCH (08:46)
[2023-01-09] MEDS: PANTOprazole 40 MG TAB PO SCH ×2 (08:46→20:03)
[2023-01-09] MEDS: ASPIRIN 81 MG ECTAB PO SCH (08:46)
[2023-01-09] MEDS: GABAPENTIN 600 MG TAB PO SCH ×4 (08:47→20:03)
[2023-01-09] MEDS: cilostazoL 100 MG TAB PO SCH ×2 (08:47→20:03)
[2023-01-09] MEDS: INSULIN ASPART PER UNIT CHARGE SC SCH ×4 (08:47→21:00)
[2023-01-09] MEDS: LANTUS PER UNIT CHARGE SQ SCH ×2 (08:47→21:00)
[2023-01-09] MEDS: ADVANCED PROBIOTIC 1250 MG CAPSULE PO SCH (08:47)
--- NOTE | 2023-01-09 09:25 | Pharmacy Report ---
Pharmacy Glycemic Short Note 2 - Date of Service January 09, 2023 - Glycemic Short BSG Results (Last 24 hours): 01/08/23 01/08/23 01/08/23 10:19 12:07 17:09 Glucose 220 H POC Glucose 183 H 303 H* 01/08/23 01/08/23 01/09/23 17:12 20:38 08:00 Glucose POC Glucose 269 H 162 H 144 H OUTPATIENT ANTIDIABETIC REGIMEN: * Lantus (unknown dose) * Novolog (unknown dose) * HbA1c 7.1% on 01/01/23 ASSESSMENT: 01/09/23 * Patient received total of 85 units of insulin yesterday, of which 40 units were basal insulin * Basal insulin increased by provider last evening - 22 units bid * Fasting BSG 144 mg/dL - continue same basal * No change to CF/CR 01/06/23 * BSGs yesterday were [phone] mg/dL and fasting today is 230 mg/dL. Blood sugars higher due to less basal on 01/04/23 * Patient received 73 units of insulin yesterday (36 units of basal and 37 units of bolus). Patient is NPO today. * Since fasting will remain elevated, will give Lantus 15 units this AM due to NPO status. Otherwise continue Lantus 18 units BID. * Continue Novolog. 01/04 * Patient received total of 68 units of insulin yesterday, of which 36 units were basal * Fasting BSG 111 mg/dL - patient NPO today for possible wound vac, held AM basal * BSGs in 140s at lunch, continues NPO - has not yet gone to OR * Plan to have reduced dose for basal at HS (reduced 50-60%) 01/03 * BSGs yesterday were [phone] mg/dL. Patient received 55 units of insulin (36 units of basal and 19 units of bolus). * Fasting today is 131 mg/dL. * Continue 36 units of basal. * Tighten CR as BSGs trended upwards yesterday. BACKGROUND * 67 yo M w T2DM. Admitted 12/27 with diabetic foot infection. Pharmacy consulted 12/31 for hyperglycemia and also NPO. Did not make aggressive changes yesterday 2nd NPO, but now ordered a diet again and OK to increase Lantus. * Novolog tightened to weight-based moderate stress estimate yesterday but with slightly tighter correction factor. Will leave for now PLAN FOR INPATIENT GLYCEMIC CONTROL: * Basal insulin * Lantus 22 units SQ BID * Bolus insulin * NovoLog per scale ACHS or Q6hrs while NPO * Goal Range: Low 110 mg/dL - High 140 mg/dL * Correction Factor: 20 mg/dL/unit * Nutritional / Prandial insulin per carb ratio of 1 unit per 4.5 grams CHO consumed
--- NOTE | 2023-01-09 09:52 | Surgery Progress Note ---
Date of Service January 09, 2023 Assessment & Plan (1) PVD (peripheral vascular disease): Plan: Patient POD#3 from redo right fem post tib prosthetic bypass. Graft working well with good PT pulse. Will make right leg a restricted limb. No tourniquets to right leg due to graft. Will need to be on ASA and Xarelto low dose for the bypass. GI recommended holding AC for 72 hrs after GI bleeding last week. Pt can start xarelto 2.5mg BID if no further orthopedic procedures required. Admission and Anticipated Discharge Date Admission Date: December 27, 2022 Subjective 67 yo m POD #3 after RLE fem-post tib prosthetic BPG, seen in f/u today. Pt states mild pain in incisions, no new complaints. Review of Systems Review of Systems: All systems reviewed & are unremarkable except as noted in HPI & below Physical Exam Constitutional: WD/WN, vitals as above Cardiovascular: Vessels: femoral pulses present and posterior tibial pulses present (RLE PT +2); + dorsalis pedis pulses abnormal Skin: + incision (pervena dressings in place) Results & Data Vital Signs (Past 12 Hours) Vital Signs Temp Pulse Resp BP Pulse Ox O2 Del Method 01/09/23 07:05 36.8 C 101 H 18 176/75 H 95 Room Air
[2023-01-09] MEDS ORDERED: traMADol HCL 50 MG TABLET PO PRN (10:48)
[2023-01-09] MEDS: POLYETHYLENE (MIRALAX) 17 GM PACK PO SCH (11:52)
--- NOTE | 2023-01-09 16:34 | Hospitalist Progress Note ---
Date of Service January 09, 2023 Assessment & Plan (1) Diabetic foot infection: Plan: right foot tissue infection with history of poor vascular dupply . Culture grew out MRSA. on Daptomycin, this from wound, started 12/30 no blood cultures are positive Taken to the operating room and debrided by Dr. Novak. Then patient returned to the OR 01/04/2023 for closure Wound VAC closure device placed 01/05/2023 revascularization r fem pop Dr Waller 01/06/23 (2) GI bleed: Plan: Patient with acute blood loss anemia secondary to bleeding within the cardia of the stomach as identified on EGD. Continue with PPI with pantoprazole 40 mg p.o. twice daily. Patient is also continued on sucralfate 1 g p.o. 4 times daily Outpatient follow-up with gastroenterology Patient did receive 2 units of packed red blood cells 01/06/2023 (3) PVD (peripheral vascular disease): Plan: Dr. Waller for femoropopliteal bypass 01/06/23 is on Cilostazol bid , no dose adjustments if Cr <2.5 (4) CKD (chronic kidney disease): Plan: ayah post operatively (5) T2DM (type 2 diabetes mellitus): Plan: Continue Lantus 18 units subcutaneously twice daily as well as sliding scale insulin Laboratory Tests Hemoglobin A1c 7.1 H Plan Patient lives alone at home. Case management has been consulted to assist with discharge planning. Positive blood cultures we will shoot for 2-week therapy and we could consider transition to oral linezolid at discharge limiting factor going home as his functional physical performance pt is now agreeable to go to rehab Admission and Anticipated Discharge Date Admission Date: December 27, 2022 Subjective Patient awake with no complaints. leg pain persists that of some tachycardia this morning EKG supports sinus tach PACs this pt still plans on going home alone Physical Exam Physical Exam: Pt is awake and alert cardiac is regular and lungs are clear foot with good capillary refill, wound vac in place x2 right thigh is without induration or ecchymosis Results & Data Results & Data Vital Signs (Past 12 Hours) Vital Signs Temp Pulse Resp BP Pulse Ox O2 Del Method 01/09/23 16:05 100.0 F H 99 H 17 154/73 H 95 Room Air 01/09/23 09:00 Room Air 01/09/23 07:05 98.2 F 101 H 18 176/75 H 95 Room Air PG Care Time/CCT Total # of Minutes Spent Total Time Spent with Patient: Total time spent is greater than 50% in coordination of care (as documented) at patient's floor/unit and/or counseling patient: Coding Level of Care Code 75765 SUB INP/OBS CARE 2/35MIN Diagnoses Diabetic foot infection E11.628; L08.9 GI bleed K92.2 PVD (peripheral vascular disease) I73.9 CKD (chronic kidney disease) N18.9 T2DM (type 2 diabetes mellitus) E11.9
[2023-01-09] MEDS ORDERED: ACETAMINOPHEN 325 MG TAB PO PRN (16:42)
[2023-01-09] MEDS: FINERENONE PO SCH (16:54)
[2023-01-09] MEDS: DAPTOmycin 550 MG in SYRINGE 0 ML IV SCH (20:03)
[2023-01-10] MEDS: HEPARIN SOD 5,000 UNIT/0.5 ML VIAL SQ SCH ×3 (05:08→22:02)
[2023-01-10] MEDS: ASCORBIC ACID 500 MG TAB PO SCH (09:10)
[2023-01-10] MEDS: ASPIRIN 81 MG ECTAB PO SCH (09:10)
[2023-01-10] MEDS: GABAPENTIN 600 MG TAB PO SCH ×4 (09:11→22:01)
[2023-01-10] MEDS: cilostazoL 100 MG TAB PO SCH ×2 (09:11→22:01)
[2023-01-10] MEDS: PANTOprazole 40 MG TAB PO SCH ×2 (09:11→22:01)
[2023-01-10] MEDS: ADVANCED PROBIOTIC 1250 MG CAPSULE PO SCH (09:11)
[2023-01-10] MEDS: POLYETHYLENE (MIRALAX) 17 GM PACK PO SCH (09:12)
[2023-01-10] MEDS: SUCRALFATE 1 GM/10 ML UDC PO SCH ×4 (09:12→22:01)
[2023-01-10] MEDS: INSULIN ASPART PER UNIT CHARGE SC SCH ×4 (09:16→22:06)
[2023-01-10] MEDS: LANTUS PER UNIT CHARGE SQ SCH ×2 (09:18→22:05)
[2023-01-10] MEDS: FINERENONE PO SCH (17:55)
[2023-01-10] MEDS: DAPTOmycin 550 MG in SYRINGE 0 ML IV SCH (22:00)
[2023-01-11] MEDS: HEPARIN SOD 5,000 UNIT/0.5 ML VIAL SQ SCH ×2 (06:19→14:19)
[2023-01-11] MEDS: LANTUS PER UNIT CHARGE SQ SCH (08:20)
[2023-01-11] MEDS: INSULIN ASPART PER UNIT CHARGE SC SCH ×2 (08:20→12:51)
[2023-01-11] MEDS: cilostazoL 100 MG TAB PO SCH (08:26)
[2023-01-11] MEDS: PANTOprazole 40 MG TAB PO SCH (08:26)
[2023-01-11] MEDS: ASPIRIN 81 MG ECTAB PO SCH (08:26)
[2023-01-11] MEDS: ADVANCED PROBIOTIC 1250 MG CAPSULE PO SCH (08:26)
[2023-01-11] MEDS: ASCORBIC ACID 500 MG TAB PO SCH (08:26)
[2023-01-11] MEDS: SUCRALFATE 1 GM/10 ML UDC PO SCH ×2 (08:27→13:01)
[2023-01-11] MEDS: POLYETHYLENE (MIRALAX) 17 GM PACK PO SCH (08:27)
[2023-01-11] MEDS: GABAPENTIN 600 MG TAB PO SCH ×2 (08:27→13:01)
[2023-01-11] MEDS ORDERED: RIVAROXABAN 2.5 MG TAB PO SCH (11:45)
[2023-01-11] MEDS ORDERED: [UNRECOGNIZED DRUG - OTHER] PO SCH (15:00)
[2023-01-11] MEDS ORDERED: LINEZOLID 600 MG TAB PO ONE (15:15)
--- NOTE | 2023-01-26 19:53 | Discharge Summary ---
Date of Service January 11, 2023 , 2022 Admission HPI Per Admitting Provider Antony is a 67-year-old male with past medical history of type II DM, PAD, tobacco use who presented with right lateral foot wound with 2 admissions 12/09 - 12/13, 12/21 - 12/25 for cellulitis requiring IV antibiotics. Patient has had 2 additional wounds develop on the dorsal medial foot with drainage; was recommended by outpatient podiatry to go to the ER for debridement and IV antibiotics. Patient has been on clindamycin as an outpatient. "Amilcar" and his Vicky are seen at bedside Discharged from [facility] on Monday. [facility] told them nothing more that they could do, recommended following up with a vascular surgeon. - Dr. Ho [facility] --> Vascular Surgery [facility]. Plant And Maintenance Technician Dr. Farzana Dwyer - Do not like their current vascular surgeon. Would like to establish here if able - History of RIGHT LEG vascular bipass in September 2019. They are not sure what type of bipass just that it was in the groin, 1 of which failed. At [facility] and had a revision with a distal stent bu tlost his hallux. 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 Was in hospital at [facility] for that, which healed OK and discharged on . - Dorsimedial ulcer and draining came up last Monday. Dr. Dwyer perofrmed ultrasound as outpatient --> No fluid --> Had reddish and purulent fluid drained by Dr. Dwyer this morning from both MEDIAL ANKLE and DORSAL foot and was recommended to come into ER for debridement. They came here rather than [facility] - Last doppler was in the hospital earlier in the month, intake but poor flow. Was to followup with Dr. Ho as outpatient on 01/10, did not have inpatient assessment. Per pt and Vicky "we werent going to wait until the .' - +History of MRSA, pt denies history of Pseudomonas infection - +Fevers, chills, sweats first day his foot blistered on Monday (3 days ago). No fevers/chills last 2 days. Has been taking doxycycline (started 12/25) & clindamycin (sinec 12/26) by podiatry. - No chest pressure or chest pain - No heart problems No lung problems Stage 3 CKD. Pt does not know his baseline Cr. - T2DM: glargine HS 24, aspart 14u with meals TID , pioglitizone, gabapentin 600mg QID - Kerendia for renal disease. Follows with Mackenzie Clay. 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 No residual deficits. - No blood thinners like eliquis or warfarin Medical History: Reviewed Medications: Reviewed Surgical History: Reviewed Family history: Reviewed Allergies: Reviewed Social History: Current smoker, 1ppd x25 years. No Etoh use. No MM use. Code Status: Full Code Principal Diagnosis Diabetic foot infection Discharge Exam Awake alert cooperative Constitutional WD/WN, vitals as above Eyes PERRL, conjunctivae normal, anicteric sclerae ENMT external ear and nose normal, oropharynx normal Respiratory normal respiratory effort, lungs clear to auscultation Cardiovascular RRR, no murmur, no edema Chest (Breasts) normal inspection/palpation of breasts Gastrointestinal (Abdomen) normal bowel sounds, soft, nontender, no hepatosplenomegaly Musculoskeletal no cyanosis or clubbing, extremities motor strength 5/5 Skin Except for diabetic foot Neurologic PERRL, EOMI, accommodation nl, no face palsy, no dysarthria Psychiatric A+Ox3, euthymic affect Discharge Data Allergies Allergy/AdvReac Type Severity Reaction Status Date / Time bee venom protein (honey bee) Allergy Severe Anaphylaxis Unverified 01/02/23 08:28 Consultations 12/27/22 16:12 ED Decision to Admit Stat 12/27/22 19:58 Consult Podiatry Routine 12/29/22 09:00 Consult Vascular Surgery Routine 12/31/22 10:03 Consult Gastroenterology Routine 01/06/23 16:12 Consult Machine Fur Cleaner Routine Procedures Performed Operation Date: 01/06/23 11:10 Actual Procedures p Right posterior Femoral to Tibial Prosthetic Bypass(Right) - Darwin Waller MD Ordered Studies 12/27/22 16:11 MR ankle RT wo/w con Stat 12/28/22 13:37 US arterial duplex LE RT Routine 12/29/22 18:39 US liver Routine 01/02/23 08:10 EV angio LE RT Routine US EV guide vascular access Routine 01/04/23 09:15 US venous doppler LE BI DAILY 01/04/23 23:09 US venous doppler LE BI Routine Hospital Course (1) Diabetic foot infection: right foot tissue infection with history of poor vascular dupply . Culture grew out MRSA. on Daptomycin, this from wound, started 12/30 no blood cultures are positive Taken to the operating room and debrided by Dr. Novak. Then patient returned to the OR 01/04/2023 for closure Wound VAC closure device placed 01/05/2023 revascularization r fem pop Dr Waller 01/06/23 (2) GI bleed: Patient with acute blood loss anemia secondary to bleeding within the cardia of the stomach as identified on EGD. Continue with PPI with pantoprazole 40 mg p.o. twice daily. Patient is also continued on sucralfate 1 g p.o. 4 times daily Outpatient follow-up with gastroenterology Patient did receive 2 units of packed red blood cells 01/06/2023 (3) PVD (peripheral vascular disease): Dr. Waller for femoropopliteal bypass 01/06/23 is on Cilostazol bid , no dose adjustments if Cr <2.5 (4) CKD (chronic kidney disease): ayah post operatively (5) T2DM (type 2 diabetes mellitus): Continue Lantus 18 units subcutaneously twice daily as well as sliding scale insulin Laboratory Tests Hemoglobin A1c 7.1 H Plan Patient lives alone at home. Case management has been consulted to assist with discharge planning. Positive blood cultures we will shoot for 2-week therapy and we could consider transition to oral linezolid at discharge limiting factor going home as his functional physical performance pt is now agreeable to go to rehabilitation at [facility] Total Time Total Time Spent Total Time Spent (In Minutes): 42 Discharge Plan Discharge Items Patient Disposition: Transfer Inpatient Rehab Fac Reason For Visit: Diabetic foot infection Discharge Diagnosis: Diabetic foot infection MRSA with Osteomyelitis and Peripheral Artery disease Condition on Discharge: Fair Health Concerns: Wound healing Activity: Per Instructions section Activity Comment: and use the orders from your in home nanny and vascular surgeon as the rule Lifting: No more than 5 pounds Bathing: Keep incision dry Exercise/Sports: Rest today Weightbearing: Right non-weightbearing Non-emergency contact: Primary Care Provider, Surgeon and Specialist Call non-emergency contact if: you have any medication questions, your pain is concerning for you and your temperature is above 101.5 Follow-up/Referrals: Michel Warren DO [Primary Care Provider] - Diet: Carb Count or DM1 Addtl Attending Provider Instructions: Wound Vac protocol Pending Studies at Discharge: No Stand-Alone Forms: My [facility] Skilled Items Patient informed of condition?: Yes DNR: No Discharge Level of Care: Acute rehab Communicable Disease: No Discharge Prognosis: Improving Lines: None Urinary Catheter: No Medications and DC Order Prescriptions: New polyethylene glycol 3350 [Miralax] 17 gram Powder In Packet 17 g PO DAILY Qty: 30 0RF aspirin 81 mg Tablet,Delayed Release (Dr/Ec) 81 mg PO QAM Qty: 30 0RF ascorbic acid (vitamin C) [Vitamin C] 500 mg Tablet 500 mg PO DAILY Qty: 30 0RF pantoprazole 40 mg Tablet,Delayed Release (Dr/Ec) 40 mg PO BID Qty: 60 0RF Advanced Probiotic 625 mg (10 billion cell) Capsule 2 cap PO DAILY Qty: 60 0RF Eliquis 2.5 mg tablet 2.5 mg PO BID Qty: 60 0RF Continued PreserVision AREDS-2 250-90-40-1 mg Capsule 1 cap PO DAILY multivitamin Tablet 1 tab PO DAILY cilostazol 100 mg Tablet 100 mg PO BID atorvastatin 20 mg tablet 20 mg PO DAILY pioglitazone 45 mg tablet 45 mg PO DAILY clopidogrel 75 mg tablet 75 mg PO DAILY tramadol 50 mg tablet 50 mg PO BID PRN (Reason: Pain) acetaminophen 500 mg Tablet 500 mg PO DAILY PRN (Reason: Pain) ascorbic acid (vitamin C) 500 mg Tablet 500 mg PO DAILY gabapentin 300 mg capsule 600 mg PO QID epinephrine 0.3 mg/0.3 mL auto-injector 0.3 mg IM DIRECTED lisinopril 40 mg tablet 40 mg PO HS insulin aspart U-100 [Novolog FlexPen U-100 Insulin] 100 unit/mL (3 mL) insulin pen 0 unit SUBCUT DIRECTED Rx Instructions: DIDNT GIVE DOSE insulin glargine [Lantus Solostar U-100 Insulin] 100 unit/mL (3 mL) insulin pen 0 unit SUBCUT QPM Rx Instructions: DIDNT GIVE DOSE cholecalciferol (vitamin D3) [Vitamin D3] 50 mcg (2,000 unit) Capsule 50 mcg PO DAILY Kerendia 10 mg tablet 10 mg PO DAILY Discontinued clindamycin HCl 300 mg Capsule 300 mg PO Q6H Discharge Orders: Discharge Order (Routine); Ordered 01/11/23 Ordered By: Roger Kurtz/Other Patient Handouts: Nutrition for Wound Healing Admission Data Admit Date/Time: 12/27/22 17:34 Attending Provider: Roger Whitlock Admit Provider: Loco Boyer Primary Care Provider: Michel Warren Other Providers: Loco Boyer ; Gaston Novak ; Darwin Waller ; Doroteo Wren ; Martin Mejia ; Carlos A Shepherd ; Jai Mckeon ; Johan Pearce ; Fede Hernandez ; Malvin Gutierres ; Valerio Bonilla ; Darrell Hawk ; Rea Garcia ; Juanis Salvador ; [facility] Other Interventions: Discharge Summary Assessment (RN) Last Done: 01/11/23 14:54 Coding Level of Care Code 22607 INP/OBS DISCH >30 MIN Diagnoses Diabetic foot infection E11.628; L08.9 GI bleed K92.2 PVD (peripheral vascular disease) I73.9 CKD (chronic kidney disease) N18.9 T2DM (type 2 diabetes mellitus) E11.9 Time Spent (min) 42
== END 2023-01-11 16:31 | DRG 616 ==
LOC: ED 13:37 → 3W 17:34 → SUATTDRO 17:34 → 3W 19:44 → 1E 01-06 15:52 → 3W 01-07 10:17